=== PATIENT | female | born 1955 | race Caucasian/White ===

== ENCOUNTER → 2016-11-25 | Outpatient (CLI) | payer BC ==
[2016-11-25 15:27] VITALS: BP 122/74; PULSE 62; TEMP 97.9; BMI 31.6
--- NOTE | 2016-12-18 20:22 | P.PN ---
Progress Note - Text DATE OF SERVICE: 11/25/2016 CHIEF COMPLAINT: Follow up gastric bypass. HISTORY OF PRESENT ILLNESS: Archana Jones is a 61-year-old female who is status post gastric bypass on January 26, 2016. She is over 9 months out. At her height of 5 feet 7-1/4 inches, her ideal body weight is 158 pounds. Her highest weight was 283 pounds. Today she comes in weighing 203 pounds. She has lost 80 pounds. She has achieved 64% excess weight loss. Body mass index is now reduced from 44.1 down to 31.7. Total BMI point reduction is 12.4. She reports no troubles with her balance. She has complete resolution of her osteoarthritis of her bilateral knees, including hips. No reports of dumping syndrome. She reports increased energy. She is averaging over 70 g of protein daily. Her other concerns include moderate excess skin along her abdominal apron. She also reports intermittent infections not well controlled with nystatin powder. Now she presents for further evaluation and management. PAST MEDICAL HISTORY: 1. Obstructive sleep apnea, moderate to severe. 2. Morbid obesity. 3. Gastroesophageal reflux disease. 4. Osteoarthritis of bilateral knees, moderate to severe. 5. Personal history of colon polyps. 6. Depression. 7. Panniculitis. PAST SURGICAL HISTORY: 1. Upper endoscopy. 2. Lower endoscopy. 3. Laparoscopic cholecystectomy. 4. Gastric bypass. MEDICATIONS: 1. Biotin. 2. Vitamin A. 3. Thiamine. 4. Nystatin powder. 5. Multivitamin. 6. Claritin. 7. Fluoxetine. 8. Vitamin D. 9. Calcium. 10. Dulcolax as needed. ALLERGIES: 1. SULFA. 2. CODEINE. 3. BETADINE. SOCIAL HISTORY: No active tobacco use; however, she is a former tobacco user. She also reports alcohol abuse. FAMILY HISTORY: Pertinent for pancreatic cancer as well as throat cancer and stomach cancer. No reports of DVT within her family. No reports of food allergies. Pertinent history of morbid obesity. REVIEW OF SYSTEMS: CONSTITUTIONAL: [place] body weight of 158 pounds. She has lost at least 80 pounds in a little over 9 months. Percent excess weight loss 64%. She is over 45 pounds overweight. MUSCULOSKELETAL: Moderate improvement of diffuse joint pain of the bilateral hips and knees, including lower back. GASTROINTESTINAL: Resolved gastroesophageal reflux disease. RESPIRATORY: Resolved obstructive sleep apnea. HEMATOLOGIC: No personal history of coagulopathy or easy bruising. HEENT: Denies any trouble with vision or hearing. She wears glasses. ENDOCRINE: No reports of diabetes or hypothyroidism. NEURO: No reports strokes or seizure disorders. PSYCH: No reports of suicidal ideation. Now she has depression. RESPIRATORY: Denies pneumonia. Denies any troubles with breathing or dyspnea on exertion. CARDIOVASCULAR: Denies any chest pain, palpitations, or recent heart attacks. PHYSICAL EXAM: VITAL SIGNS: 97.9, 62, 122/74, 14, 5 feet 7-1/4 inches, 203 pounds. Body mass index of 31.7. ABDOMEN: Soft, nontender, without incarcerated incisional hernias. Pannus extends over pubis by at least 4.5 to 5 cm with mild hyperemia consistent with panniculitis. GENERAL: Well-developed female in distress. MUSCULOSKELETAL: No clubbing, cyanosis. HEENT: No sclerae icterus. Extraocular movements grossly intact. NECK: Supple without lymphadenopathy. No JV distention. CHEST: Non-labored respirations and equal bilateral excursions. CARDIOVASCULAR: Regular rate and rhythm. Palpable 2+ radial pulses. NEUROLOGIC: No focal or lateralizing signs. PSYCH: Appropriate affect. Alert and oriented to person, place and time. LABS: Previous labs reviewed with hemoglobin normal at 12.7. BUN is elevated at 21. Percent iron saturation was low at 18.6. ALT and AST were elevated at 650 and 40, respectively. ASSESSMENT: 1. Morbid obesity due to excess caloric intake. 2. Body mass index reduced from 44.1 down to 31.7. 3. Moderate obstructive sleep apnea. 4. Osteoarthritis of the bilateral knees, improved. 5. Osteoarthritis of the bilateral feet, improved. 6. History of gastrointestinal reflux disease with esophagitis. 7. Diaphragmatic hiatal hernia. 8. Family history of gastrointestinal malignancies, including the throat, stomach and pancreatic cancer. 9. Family history of morbid obesity. 10. Hypertensive heart disease without cardiomyopathy. 11. Depression without recent psychosis. 12. Vitamin D deficiency. 13. Former tobacco use. 14. Status post Marifer-en-Y gastric bypass. 15. Panniculitis. 16. Secondary hyperparathyroidism. 17. Thiamine deficiency. 18. Gastroesophageal reflux disease, resolved. 19. Obstructive sleep apnea, resolved. PLAN: 1. Additional prescription for nystatin powder was written on her behalf. 2. I did discuss the treatment for panniculectomy, which includes postoperative recovery. 3. Risk of flap failure, bleeding, infection, chronic pain, postoperative seromas, need for further surgery were reviewed in detail. She demonstrated understanding. 4. I do recommend at minimum for her to get to her ideal goal weight, which at this time she is still wants at least an extra 20+ pounds weight loss. 5. She is short of 20 pounds shy of 100-pound weight loss goal, which we will continue to evaluate. 6. I also recommend completion of a bariatric metabolic panel.
== END | disposition home or self-care (01) ==
LOC: BARWHC3 14:28
PROVIDERS: ATTEND Surgery Plastic and Reconstructive Surgery
DX: Z48.815 Encounter for surgical aftercare following surgery on the digestive system (principal); Z71.3 Dietary counseling and surveillance; E66.01 Morbid (severe) obesity due to excess calories; Z68.31 Body mass index [BMI] 31.0-31.9, adult; M19.072 Primary osteoarthritis, left ankle and foot; M19.071 Primary osteoarthritis, right ankle and foot; Z87.898 Personal history of other specified conditions; K44.9 Diaphragmatic hernia without obstruction or gangrene; Z80.0 Family history of malignant neoplasm of digestive organs; Z80.8 Family history of malignant neoplasm of other organs or systems; Z84.89 Family history of other specified conditions; I11.9 Hypertensive heart disease without heart failure; F32.9 Major depressive disorder, single episode, unspecified; E55.9 Vitamin D deficiency, unspecified; Z72.0 Tobacco use; Z98.84 Bariatric surgery status; M79.3 Panniculitis, unspecified; N25.81 Secondary hyperparathyroidism of renal origin; E51.9 Thiamine deficiency, unspecified; Z79.899 Other long term (current) drug therapy; Z88.5 Allergy status to narcotic agent; Z88.2 Allergy status to sulfonamides; Z88.8 Allergy status to other drugs, medicaments and biological substances; F10.10 Alcohol abuse, uncomplicated
CPT/HCPCS: 97803; 99211

== ENCOUNTER → 2017-03-23 | Outpatient (CLI) | payer BC ==
--- NOTE | 2017-03-24 06:11 | PN ---
This is a very pleasant 61-year-old female patient who was diagnosed having severe JENNY with AHI of 44 and she was on CPAP therapy at a pressure of 12 cm of water. Note that the patient has undergone gastric bypass surgery and she lost a total of 104 pounds. Back in September of 2015, she used to weight 285 and currently she is 181. With this significant weight loss, the patient did not have to use her CPAP. In fact, she felt worse while on the CPAP therapy and she quit using the machine around 4 months ago. Her weight has plateaued down to 180. She is feeling great. She is not snoring. She is waking up alert and awake during the day off the CPAP treatment. No fatigue. No tiredness. No sleepiness. She is averaging around 6 to 7 hours of sleep every night without any major difficulties. No active arthritis. No heartburn. BP is 120/72, pulse 65, respirations 16, weight 181, height 5 feet 7 inches, temperature 98.0, saturation 99% on room air. GENERAL APPEARANCE: Calm, comfortable. HEENT: Negative for JVD. There is no goiter or neck masses. LUNGS: Clear to auscultation. HEART: Sounds regular rate and rhythm. Normal S1, S2. ABDOMEN: Soft, nontender. No organomegaly. EXTREMITIES: No edema, no cyanosis or clubbing. IMPRESSION: 1. Severe obstructive sleep apnea, probably recovered after a gastric bypass surgery. Baseline AHI was 44, currently asymptomatic, not using her CPAP. 2. Bariatric surgery/gastric bypass. 3. Gastroesophageal reflux disease. PLAN: 1. Will stop CPAP therapy for now. 2. Will do a home sleep study to re-evaluate the presence and severity of obstructive sleep apnea. The patient is completely asymptomatic. I am inclined to discontinue the treatment especially if the home sleep study does not show any significant sleep breathing disorder. ALETAD
== END | disposition home or self-care (01) ==
LOC: SLEEP 16:46
PROVIDERS: ATTEND Internal Medicine Critical Care Medicine
DX: G47.33 Obstructive sleep apnea (adult) (pediatric) (principal); K21.9 Gastro-esophageal reflux disease without esophagitis; Z98.84 Bariatric surgery status

== ENCOUNTER 2017-04-24 21:58 | Emergency (ER) | payer BC ==
[2017-04-24 22:11] VITALS: RESP 18
--- NOTE | 2017-04-24 23:07 | ED ---
General Adult HPI - General Chief complaint: Head Injury Stated complaint: Fall/Head Lac Time Seen by Provider: 04/24/17 22:14 Source: patient, family, RN notes reviewed Mode of arrival: ambulatory Limitations: no limitations - History of Present Illness Initial comments: 61-year-old female presents emergency Department chief complaint of fall. Patient states that she was running close down the stairs and she tripped and fell and hit her head. Patient states she did not pass out she does not have a headache she denies neck pain she denies any nausea vomiting. Patient states she did drink alcohol tonight. Patient states that's and her tetanus. A repeat concerned due to the bleeding so they thought that they should be evaluated.Patient denies any recent fever, chills, shortness of breath, chest pain, back pain, abdominal pain, nausea vomiting, numbness or tingling, dysuria or hematuria, constipation or diarrhea, headaches or visual changes, or any other current symptoms. - Related Data Home Medications Medication Instructions Recorded Confirmed FLUoxetine HCL [Sarafem] 20 mg PO QAM 04/03/15 04/24/17 Multivitamins, Thera [Multivitamin 1 tab PO DAILY 04/25/15 04/24/17 (formulary)] Cholecalciferol [Vitamin D3] 4,000 unit PO DAILY 10/02/15 04/24/17 Calcium Carbonate [Calcium] 600 mg PO DAILY 01/17/16 04/24/17 Loratadine-Pseudoeph 5-120 mg 1 each PO DAILY 02/05/16 04/24/17 [Claritin-D 12 HR] Bisacodyl [Dulcolax] 5 mg PO DIRECTED PRN 02/26/16 04/24/17 Saliva Stimulant Agents Comb.3 1 ml PO DAILY 11/25/16 04/24/17 [Biotene Moisturizing Mouth] Previous Rx's Medication Instructions Recorded Nystatin 100,000 Unit/gm Powd 1 applic TOPICAL BID #60 powder 04/29/16 [Mycostatin Powder] Calcium Carbonate [Calcium] 600 mg PO BID #60 tablet 05/22/16 Thiamine HCl [Vitamin B-1] 100 mg PO DAILY #30 tablet 05/22/16 Vitamin A 8,000 unit PO DAILY #30 capsule 05/22/16 Nystatin 100,000 Unit/gm Powd 1 applic TOPICAL BID #60 powder 11/25/16 [Mycostatin Powder] Allergies Allergy/AdvReac Type Severity Reaction Status Date / Time Sulfa (Sulfonamide Allergy HIVES Verified 04/24/17 22:11 Antibiotics) acetaminophen [From [place]] AdvReac Nausea & Verified 04/24/17 22:11 Vomiting codeine AdvReac Nausea & Verified 04/24/17 22:11 Vomiting hydrocodone bitartrate AdvReac Nausea & Verified 04/24/17 22:11 [From [place]] Vomiting povidone-iodine AdvReac Rash/Hives Verified 04/24/17 22:11 [From Betadine] soap [From Betadine] AdvReac Rash/Hives Verified 04/24/17 22:11 Review of Systems ROS Statement: Those systems with pertinent positive or pertinent negative responses have been documented in the HPI. ROS Other: All systems not noted in ROS Statement are negative. Past Medical History Past Medical History: GERD/Reflux, Osteoarthritis (OA), Sleep Apnea/CPAP/BIPAP Additional Past Medical History / Comment(s): Arthritis Knees. LMP 2008 EST. HIATAL HERNIA. USING CPAP. FATTY LIVER. ENDOCRINE DISORDER, PER DR PRIEST'S [facility] CLEARANCE, NO RX FOR THESE. History of Any Multi-Drug Resistant Organisms: None Reported Past Surgical History: Bariatric Surgery, Cholecystectomy Additional Past Surgical History / Comment(s): COLPOSCOPY. EGD/Colonoscopy/D& C. gastric bypass 2015 Past Anesthesia/Blood Transfusion Reactions: No Reported Reaction Past Psychological History: No Psychological Hx Reported Smoking Status: Never smoker - Past Family History Mother Family Medical History: Cancer Additional Family Medical History / Comment(s): pancreatic cancer Father Family Medical History: Congestive Heart Failure (CHF), Myocardial Infarction ( [place]) General Exam Limitations: no limitations General appearance: alert, in no apparent distress Head exam: Present: atraumatic, normocephalic. Absent: normal inspection ( Patient does appear to 4 cm scalp laceration to the frontal area.) ENT exam: Present: normal exam, mucous membranes moist Neck exam: Present: normal inspection. Absent: tenderness, meningismus, lymphadenopathy Respiratory exam: Present: normal lung sounds bilaterally. Absent: respiratory distress, wheezes, rales, rhonchi, stridor Cardiovascular Exam: Present: regular rate, normal rhythm, normal heart sounds. Absent: systolic murmur, diastolic murmur, rubs, gallop, clicks Extremities exam: Present: normal inspection, full ROM, normal capillary refill. Absent: tenderness, pedal edema, joint swelling, calf tenderness Back exam: Present: normal inspection Neurological exam: Present: alert, oriented X3, CN II-XII intact, normal gait, reflexes normal. Absent: motor sensory deficit Psychiatric exam: Present: normal affect, normal mood Skin exam: Present: warm, dry, intact, normal color. Absent: rash Course Vital Signs 04/24/17 22:07 Temperature 98.6 F Pulse Rate 66 Respiratory 18 Rate Blood Pressure 136/77 O2 Sat by Pulse 99 Oximetry Procedures - Procedures Initial comment: consent obtained. The skin was anesthetized with 1% lidocaine without epinephrine. The laceration was then cleansed with Betadine and irrigated with normal saline. The wound was inspected, and there was no evidence of injury to deep structures. No foreign body was noted in the wound. A total of 4 skin shyanne were placed with good approximation to a 4 cm scalp laceration. Medical Decision Making - Medical Decision Making 61-year-old female presents for follow-up head injury and laceration. Patient with staple care. We discussed CAT scan results. We discussed care follow-up return parameters. We discussed all the patient's and family's questions. They stated they understood and the on agreement the plan. All questions have been answered. They will be discharged home. - Radiology Data Radiology results: report reviewed, image reviewed Disposition Clinical Impression: Fall, Scalp laceration, Minor head injury without loss of consciousness Disposition: HOME SELF-CARE Condition: Stable Instructions: Head Injury (ED), Staple Care (ED) Additional Instructions: Please use medication as discussed. Please follow up with family doctor if symptoms have not improved over the next two days. Please return to the emergency room if your symptoms increase or worsen or for any other concerns. Referrals: Mike Rodney MD [Primary Care Provider] - 1-2 days Time of Disposition: 23:25
--- NOTE | 2017-04-24 23:23 | CT ---
EXAM: CT Head Without Intravenous Contrast CLINICAL HISTORY: Reason: Pain TECHNIQUE: Axial computed tomography images of the head/brain without intravenous contrast. CTDI is 0.15, 59.43, 18.34, 0.15, 59.43 mGy and DLP is 2635 mGy-cm. This CT exam was performed using one or more of the following dose reduction techniques: automated exposure control, adjustment of the mA and/or kV according to patient size, and/or use of iterative reconstruction technique. COMPARISON: No relevant prior studies available. FINDINGS: Brain: No evidence of acute infarct, hemorrhage, mass or edema. No significant white matter disease. Ventricles: Unremarkable. No ventriculomegaly. Bones/joints: Unremarkable. No acute fracture. Soft tissues: Unremarkable. Sinuses: Unremarkable as visualized. No acute sinusitis. Mastoid air cells: Unremarkable as visualized. No mastoid effusion. IMPRESSION: No acute findings. EXAM: CT Cervical Spine Without Intravenous Contrast CLINICAL HISTORY: Reason: Pain TECHNIQUE: Axial computed tomography images of the cervical spine without intravenous contrast. CTDI is 0.15, 59.43, 18.34, 0.15, 59.43 mGy and DLP is 2635 mGy-cm. This CT exam was performed using one or more of the following dose reduction techniques: automated exposure control, adjustment of the mA and/or kV according to patient size, and/or use of iterative reconstruction technique. COMPARISON: No relevant prior studies available. FINDINGS: Vertebrae: No acute fracture or traumatic malalignment. Discs/spinal canal/neural foramina: Multilevel degenerative changes. No spinal canal stenosis. Soft tissues: Unremarkable. Lung apices: Unremarkable as visualized. IMPRESSION: No acute findings.
[2017-04-24 23:40] VITALS: BP 120/68; PULSE 62; TEMP 97.8
== END 2017-04-24 23:34 | disposition home or self-care (01) ==
LOC: EC 21:58
DX: S01.01XA Laceration without foreign body of scalp, initial encounter (principal); M17.10 Unilateral primary osteoarthritis, unspecified knee; Z88.2 Allergy status to sulfonamides; Z88.5 Allergy status to narcotic agent; Z91.048 Other nonmedicinal substance allergy status; Z79.899 Other long term (current) drug therapy; W10.9XXA Fall (on) (from) unspecified stairs and steps, initial encounter; Y93.02 Activity, running; Y92.009 Unspecified place in unspecified non-institutional (private) residence as the place of occurrence of the external cause
CPT/HCPCS: 12002; 70450; 72125; 99283

== ENCOUNTER 2018-10-08 12:53 | Emergency (ER) | payer BC ==
[2018-10-08 13:16] VITALS: TEMP 98.1
[2018-10-08] MEDS ORDERED: HYDROmorphone 1 MG/ML 1 ML SYRINGE IVP STA (13:39)
--- NOTE | 2018-10-08 13:44 | ED ---
Upper Extremity HPI - General Chief Complaint: Extremity Injury, Upper Stated Complaint: fall, shoulder injury Time Seen by Provider: 10/08/18 13:21 Source: patient, EMS, RN notes reviewed Mode of arrival: EMS Limitations: no limitations - History of Present Illness Initial Comments: 63-year-old female presents emergency department via EMS chief complaints of a fall. Patient states she slipped on some ice onto her right shoulder. Patient has severe right shoulder pain. Patient states that she was given fentanyl by EMS which helped for short period of time. Patient denies any head injury no loss conscious. Patient states she did lay and ice that she was unable to get up. Patient denies any lower extremity injury. Denies any chest pain or shortness of breath. - Related Data Home Medications Medication Instructions Recorded Confirmed FLUoxetine HCL [Sarafem] 20 mg PO QAM 04/03/15 04/24/17 Multivitamins, Thera [Multivitamin 1 tab PO DAILY 04/25/15 04/24/17 (formulary)] Cholecalciferol [Vitamin D3] 4,000 unit PO DAILY 10/02/15 04/24/17 Calcium Carbonate [Calcium] 600 mg PO DAILY 01/17/16 04/24/17 Loratadine-Pseudoeph 5-120 mg 1 each PO DAILY 02/05/16 04/24/17 [Claritin-D 12 HR] Bisacodyl [Dulcolax] 5 mg PO DIRECTED PRN 02/26/16 04/24/17 Saliva Stimulant Agents Comb.3 1 ml PO DAILY 11/25/16 04/24/17 [Biotene Moisturizing Mouth] Previous Rx's Medication Instructions Recorded Nystatin 100,000 Unit/gm Powd 1 applic TOPICAL BID #60 powder 04/29/16 [Mycostatin Powder] Calcium Carbonate [Calcium] 600 mg PO BID #60 tablet 05/22/16 Thiamine HCl [Vitamin B-1] 100 mg PO DAILY #30 tablet 05/22/16 Vitamin A 8,000 unit PO DAILY #30 capsule 05/22/16 Nystatin 100,000 Unit/gm Powd 1 applic TOPICAL BID #60 powder 11/25/16 [Mycostatin Powder] traMADol HCl [Ultram] 50 mg PO Q6H PRN #12 tab 10/08/18 Allergies Allergy/AdvReac Type Severity Reaction Status Date / Time Sulfa (Sulfonamide Allergy HIVES Verified 10/08/18 13:08 Antibiotics) acetaminophen [From [place]] AdvReac Nausea & Verified 10/08/18 13:08 Vomiting codeine AdvReac Nausea & Verified 10/08/18 13:08 Vomiting hydrocodone bitartrate AdvReac Nausea & Verified 10/08/18 13:08 [From [place]] Vomiting povidone-iodine AdvReac Rash/Hives Verified 10/08/18 13:08 [From Betadine] soap [From Betadine] AdvReac Rash/Hives Verified 10/08/18 13:08 Review of Systems ROS Statement: Those systems with pertinent positive or pertinent negative responses have been documented in the HPI. ROS Other: All systems not noted in ROS Statement are negative. Past Medical History Past Medical History: GERD/Reflux, Osteoarthritis (OA), Sleep Apnea/CPAP/BIPAP Additional Past Medical History / Comment(s): Arthritis Knees. LMP 2008 EST. HIATAL HERNIA. USING CPAP. FATTY LIVER. ENDOCRINE DISORDER, PER DR PRIEST'S MEDICAL CLEARANCE, NO RX FOR THESE. History of Any Multi-Drug Resistant Organisms: None Reported Past Surgical History: Bariatric Surgery, Cholecystectomy Additional Past Surgical History / Comment(s): COLPOSCOPY. EGD/Colonoscopy/D& C. gastric bypass 2015 Past Anesthesia/Blood Transfusion Reactions: No Reported Reaction Past Psychological History: No Psychological Hx Reported Smoking Status: Never smoker Past Alcohol Use History: None Reported Past Drug Use History: None Reported - Past Family History Mother Family Medical History: Cancer Additional Family Medical History / Comment(s): pancreatic cancer Father Family Medical History: Congestive Heart Failure (CHF), Myocardial Infarction ( [place]) General Exam General appearance: alert, in no apparent distress Head exam: Present: atraumatic, normocephalic, normal inspection Neck exam: Present: normal inspection, full ROM. Absent: tenderness, meningismus, lymphadenopathy Respiratory exam: Present: normal lung sounds bilaterally. Absent: respiratory distress, wheezes, rales, rhonchi, stridor, chest wall tenderness Cardiovascular Exam: Present: regular rate, normal rhythm, normal heart sounds. Absent: systolic murmur, diastolic murmur, rubs, gallop, clicks Extremities exam: Present: other (Right shoulder there is severe tenderness with palpation, mild swelling, arm is neurovascularly intact, no tenderness of the right elbow or right wrist. Lower extremity within normal limits) Neurological exam: Present: alert, oriented X3, CN II-XII intact, reflexes normal. Absent: motor sensory deficit Skin exam: Present: warm, dry, intact, normal color. Absent: rash Course Vital Signs 10/08/18 13:08 Temperature 98.1 F Pulse Rate 72 Respiratory 18 Rate Blood Pressure 135/79 O2 Sat by Pulse 98 Oximetry Medical Decision Making - Medical Decision Making 63-year-old female presented for slip on ice. Patient has a right humeral neck fracture. Patient was placed in a sling will be discharged with pain medication. Patient has multiple ALLERGIES to oral medications. Patient be tried on tramadol. Patient will follow-up with orthopedics. Return parameters were discussed. Disposition Clinical Impression: Right humeral fracture, Fall Disposition: HOME SELF-CARE Condition: Stable Instructions (If sedation given, give patient instructions): Arm Fracture in Adults (ED) Additional Instructions: Please return to the Emergency Department if symptoms worsen or any other concerns. Prescriptions: traMADol HCl [Ultram] 50 mg PO Q6H PRN #12 tab PRN Reason: Pain Is patient prescribed a controlled substance at d/c from ED?: Yes When asked, does pt state using other controlled substances?: No If prescribed controlled substance>3 days was MAPS reviewed?: Prescribed <3 Days If opioid is for acute pain is fill amount 7 days or less?: Yes If Rx opioid, was Start Talking consent form obtained?: Yes Referrals: Mike Rodney MD [Primary Care Provider] - 1-2 days Time of Disposition: 15:01
--- NOTE | 2018-10-08 14:07 | XR ---
Right shoulder 2 views. History pain. Fall. Comparison none. FINDINGS: There is oblique fracture of the humeral neck. There is separation of the fragments up to 1 cm. There is no dislocation. Scapula appears intact. IMPRESSION: Acute humeral neck fracture.
[2018-10-08 15:47] VITALS: BP 129/78; PULSE 82; RESP 16
== END 2018-10-08 15:45 | disposition home or self-care (01) ==
LOC: EC 12:53
DX: S42.211A Unspecified displaced fracture of surgical neck of right humerus, initial encounter for closed fracture (principal); G47.30 Sleep apnea, unspecified; Z79.899 Other long term (current) drug therapy; Z88.2 Allergy status to sulfonamides; Z88.5 Allergy status to narcotic agent; Z88.6 Allergy status to analgesic agent; Z88.8 Allergy status to other drugs, medicaments and biological substances; Z98.84 Bariatric surgery status; Z99.89 Dependence on other enabling machines and devices; W00.0XXA Fall on same level due to ice and snow, initial encounter
CPT/HCPCS: 99284; 96374; 73030; J1170

== ENCOUNTER → 2021-05-28 | Outpatient (CLI) | payer MEDICARE ==
--- NOTE | 2021-05-28 10:16 | CT ---
EXAMINATION TYPE: CT abdomen pelvis w con DATE OF EXAM: 05/28/2021 HISTORY: diverticulitis CT DLP: 1376mGycm Automated Exposure Control for Dose Reduction was Utilized. CONTRAST: CT scan of the abdomen and pelvis is performed with IV Contrast, patient injected with 100 mL of Isov ue 300. COMPARISON: None. FINDINGS: Exam is suboptimal due to overlying ring down artifact. LUNG BASES: No significant abnormality is appreciated. LIVER/GB: Cholecystectomy clips. PANCREAS: No significant abnormality is seen. SPLEEN: No significant abnormality is seen. ADRENALS: No significant abnormality is seen. KIDNEYS: Marked cortical thinning and diminished size to left kidney consistent with end-stage atroph y. Satisfactory uptake and excretion right kidney with some small simple appearing parapelvic cysts a t the mid to lower pole level. No hydronephrosis. BOWEL: The oral contrast reaches level of the terminal ileum. Stomach poorly distended as contrast olsen s passed from stomach at time of imaging. Surgical changes at the diaphragmatic hiatus are identified . There is debris filled mildly dilated visualized distal esophagus. Portion of stomach is bypassed. Contrast seen in nondistended small bowel loops throughout the abdomen. There is wandering cecal into the right upper to mid abdomen. Appendix within normal limits from the cecum. Terminal ileum appears within normal limits. Immediately past cecum there is moderate concentric wall thickening extending through the hepatic flexure with moderate to severe wall thickening diffusely along entire transverse colon and moderate wall thickening extending into the proximal two thirds of the left colon. There i s significant diverticular disease from the hepatic flexure through entire transverse colon and to en tire left colon and visualized portion of the redundant sigmoid colon. Sigmoid colon is fecal filled with loss of normal colonic haustra. Moderate gas-filled prominence of the rectum. No free air. No we ll-formed fluid collection or abscess. No significant surrounding fat stranding. UTERUS/ADNEXA: Anteverted uterus projects to right of midline. No adnexal masses noted. LYMPH NODES: No greater than 1cm abdominal or pelvic lymph nodes are appreciated. OSSEOUS STRUCTURES: [id number] disc space narrowing affecting disc phenomenon at lumbosacral junction mild to moderate disc space narrowing T11-T12 and T12-L1 levels with vacuum disc phenomenon. OTHER: No significant additional abnormality is seen. IMPRESSION: Prominent diffuse colonic diverticulosis from hepatic flexure through distal sigmoid colo n. There is moderate to severe long segment colitis from the proximal to mid right colon through the distal portion of the left colon. Differential includes infectious and/or inflammatory etiologies. Lo ss of colonic haustra with moderate colonic fecal stasis in the sigmoid colon suggests underlying chr onic colitis or inflammation.
== END | disposition home or self-care (01) ==
LOC: RADCTMAIN 07:07
PROVIDERS: ATTEND Surgery Plastic and Reconstructive Surgery
DX: K52.9 Noninfective gastroenteritis and colitis, unspecified (principal); K57.30 Diverticulosis of large intestine without perforation or abscess without bleeding
CPT/HCPCS: 74177; Q9967

== ENCOUNTER 2021-07-28 07:42 | Day surgery (SDC) | payer MEDICARE ==
[2021-07-24 15:12] VITALS: BMI 26.9
--- NOTE | 2021-07-28 07:14 | P.GSHP ---
History of Present Illness H&P Date: 07/28/21 CHIEF COMPLAINT: Colon screen HISTORY OF PRESENT ILLNESS: The patient is a 66-year-old female who presents for colon screen. Lower endoscopy was offered for further evaluation and management. PAST MEDICAL HISTORY: Please see list. PAST SURGICAL HISTORY: Please see list. MEDICATIONS: Please see list. ALLERGIES: Please see list. SOCIAL HISTORY: No illicit drug use FAMILY HISTORY: No reports of Crohn disease or ulcerative colitis. REVIEW OF ORGAN SYSTEMS: CONSTITUTIONAL: No reports of fevers or chills. PHYSICAL EXAM: VITAL SIGNS: Stable GENERAL: Well-developed pleasant in no acute distress. HEENT: No scleral icterus. Extraocular movements grossly intact. Moist buccal mucosa. NECK: Supple without lymphadenopathy. CHEST: Unlabored respirations. Equal bilateral excursions. CARDIOVASCULAR: Regular rate and rhythm. Distal 2+ pulses. ABDOMEN: Soft, nontender, nondistended. MUSCULOSKELETAL: No clubbing, cyanosis, or edema. ASSESSMENT: 1. Colon screen. PLAN: 1. Recommend proceeding with a lower endoscopy Past Medical History Past Medical History: GERD/Reflux, Osteoarthritis (OA), Sleep Apnea/CPAP/BIPAP Additional Past Medical History / Comment(s): hx HIATAL HERNIA. diverticulitis, History of Any Multi-Drug Resistant Organisms: None Reported Past Surgical History: Bariatric Surgery, Cholecystectomy Additional Past Surgical History / Comment(s): COLPOSCOPY. EGD/Colonoscopy, D&C. gastric bypass , repair of hiatal hernia Past Anesthesia/Blood Transfusion Reactions: No Reported Reaction Smoking Status: Former smoker - Past Family History Mother Family Medical History: Cancer Additional Family Medical History / Comment(s): pancreatic cancer Father Family Medical History: Congestive Heart Failure (CHF), Myocardial Infarction ([place]) Medications and Allergies Home Medications Medication Instructions Recorded Confirmed Type Multivitamins, Thera [Multivitamin 1 tab PO DAILY 04/25/15 07/24/21 History (formulary)] Cholecalciferol [Vitamin D3 (25 4,000 unit PO DAILY 10/02/15 07/24/21 History Mcg = 1000 Iu)] Loratadine-Pseudoeph 5-120 mg 1 each PO DAILY PRN 02/05/16 07/24/21 History [Claritin-D 12 HR] Calcium Carbonate [Calcium] 600 mg PO BID #60 tablet 05/22/16 07/24/21 Rx Biotin 5 mg PO DAILY 05/15/21 07/24/21 History Cyanocobalamin [Vitamin B-12] 500 mcg PO DAILY 05/15/21 07/24/21 History FLUoxetine HCL [Sarafem] 20 mg PO QAM 07/24/21 07/24/21 History Allergies Allergy/AdvReac Type Severity Reaction Status Date / Time Sulfa (Sulfonamide Allergy HIVES Verified 07/24/21 15:04 Antibiotics) acetaminophen [From [place]] AdvReac Nausea & Verified 07/24/21 15:04 Vomiting codeine AdvReac Nausea & Verified 07/24/21 15:04 Vomiting hydrocodone bitartrate AdvReac Nausea & Verified 07/24/21 15:04 [From [place]] Vomiting povidone-iodine AdvReac Rash/Hives Verified 07/24/21 15:04 [From Betadine] soap [From Betadine] AdvReac Rash/Hives Verified 07/24/21 15:04
--- NOTE | 2021-07-28 07:23 | P.PCN ---
Date of Procedure: 07/28/21 Description of Procedure: PREOPERATIVE DIAGNOSIS: Gastroesophageal reflux disease. Morbid obesity. POSTOPERATIVE DIAGNOSIS: Morbid obesity. Gastritis. Gastroesophageal reflux disease. OPERATION: Esophagogastroduodenoscopy with biopsies along antrum. SURGEON: Yu Marrufo MD ANESTHESIA: MAC. INDICATIONS: The patient is a 66-year-old female who presents with a history of reflux disease. Benefits and risks of the procedure were described. Informed consent was obtained. DESCRIPTION: The patient was brought into the endoscopy suite and laid in the left lateral decubitus position. An Olympus gastroscope was passed along the posterior oropharynx down to the distal esophagus where the squamocolumnar junction was encountered at 40 cm from the incisors. The stomach was entered and no bile reflux was found. Additional findings are listed below. Biopsies with cold forceps were obtained of the antrum. The first through third portion of the duodenum was examined and unremarkable. Retroflexion of the scope confirmed Hill grade 2 lower esophageal valve. The squamocolumnar junction demonstrated LA grade B erosive esophagitis. The stomach was desufflated. The patient tolerated the procedure well. FINDINGS: Squamocolumnar junction 40 cm from the incisors. Diaphragmatic hiatus at 40 cm. Hill grade 2 lower esophageal valve. LA grade B erosive esophagitis. No active duodenitis. Chronic gastritis RECOMMENDATIONS: Upper endoscopy as needed. Plan - Discharge Summary New Discharge Prescriptions: New Omeprazole [PriLOSEC] 40 mg PO DAILY #14 cap Continue Multivitamins, Thera [Multivitamin (formulary)] 1 tab PO DAILY Cholecalciferol [Vitamin D3 (25 Mcg = 1000 Iu)] 4,000 unit PO DAILY Loratadine-Pseudoeph 5-120 mg [Claritin-D 12 Hour] 1 each PO DAILY PRN PRN Reason: allergies Calcium Carbonate [Calcium] 600 mg PO BID #60 tablet Cyanocobalamin [Vitamin B-12] 500 mcg PO DAILY FLUoxetine HCL [Sarafem] 20 mg PO QAM Biotin 5 mg PO DAILY Discharge Medication List Multivitamins, Thera [Multivitamin (formulary)] 1 tab PO DAILY 04/25/15 [History] Cholecalciferol [Vitamin D3 (25 Mcg = 1000 Iu)] 4,000 unit PO DAILY 10/02/15 [History] Loratadine-Pseudoeph 5-120 mg [Claritin-D 12 Hour] 1 each PO DAILY PRN 02/05/16 [History] Calcium Carbonate [Calcium] 600 mg PO BID #60 tablet 05/22/16 [Rx] Biotin 5 mg PO DAILY 05/15/21 [History] Cyanocobalamin [Vitamin B-12] 500 mcg PO DAILY 05/15/21 [History] FLUoxetine HCL [Sarafem] 20 mg PO QAM 07/24/21 [History] Omeprazole [PriLOSEC] 40 mg PO DAILY #14 cap 07/28/21 [Rx] Follow up App[facility]ment(s[facility]Ref[facility] [place] [facility] [place] [facility] Patient Instructions/Handouts: Gastritis (DC) Discharge Disposition: HOME SELF-CARE
[~2021-07-28 07:42] MED LIST: LACTATED RINGERS 1,000 ML IV SCH
[2021-07-28 08:33] VITALS: TEMP 97.9
[2021-07-28] MEDS ORDERED: PROPOFOL 10 MG/ML 20 ML VIAL IV ONE (08:53)
[2021-07-28 09:25] VITALS: RESP 16
[2021-07-28 09:43] VITALS: BP 156/79; PULSE 69
--- NOTE | 2021-07-31 02:52 | P.PCN ---
Date of Procedure: 07/28/21 Description of Procedure: PREOPERATIVE DIAGNOSIS: Personal history of colon polyps Family history malignant colon polyps Colonoscopy screening POSTOPERATIVE DIAGNOSIS: Personal history of colon polyps Family history malignant colon polyps Colonoscopy screening Tubular adenoma hepatic flexure Sigmoid diverticulosis, severe Internal hemorrhoids, grade 2 OPERATION: Colonoscopy to the ileocecal valve and appendiceal orifice, cecum Colonoscopy with hot snare polypectomy SURGEON: Yu Marrufo MD. ANESTHESIA: MAC. INDICATIONS: The patient is an 66-year-old female who presents family history of malignant colon polyps and personal history of colon polyps. Last colonoscopy 5 years. Benefits and risks were described and informed consent was obtained. DESCRIPTION OF PROCEDURE: The patient had undergone Sutab prep. The patient had been brought into the operating room and laid in the left lateral decubitus position. After adequate intravenous sedation, the rectum was examined with 2% lidocaine jelly. The prostate was unremarkable. External hemorrhoids were encountered. The rectal tone was within normal limits. No lesions were palpated in the rectal vault. An Olympus colonoscope was advanced until the cecum, ileocecal valve and appendiceal orifice were clearly viewed. The prep was good. Sigmoid diverticulosis was encountered. Colonic polyps were found and removed. No evidence of focal colitis was found. Retroflexion of the scope demonstrated grade 2 internal hemorrhoids without active bleeding or inflammation. The colon was desufflated. The patient had tolerated the procedure well. Withdrawal time was over 6 minutes. FINDINGS: Aronchick preparation quality scale 2 (1-5) Internal hemorrhoids, grade 2 External hemorrhoids, grade 2. No arteriovenous malformations. Sigmoid diverticulosis, severe Removal of 1 polyp: - Snare polypectomy at mid hepatic flexure, 8 mm polyp, tubulovillous adenoma. No focal colitis. RECOMMENDATIONS: Repeat colonoscopy 3 years, 2023. Plan - Discharge Summary New Discharge Prescriptions: Continue Multivitamins, Thera [Multivitamin (formulary)] 1 tab PO DAILY Cholecalciferol [Vitamin D3 (25 Mcg = 1000 Iu)] 4,000 unit PO DAILY Loratadine-Pseudoeph 5-120 mg [Claritin-D 12 Hour] 1 each PO DAILY PRN PRN Reason: allergies Calcium Carbonate [Calcium] 600 mg PO BID #60 tablet Cyanocobalamin [Vitamin B-12] 500 mcg PO DAILY FLUoxetine HCL [Sarafem] 20 mg PO QAM Biotin 5 mg PO DAILY Discharge Medication List Multivitamins, Thera [Multivitamin (formulary)] 1 tab PO DAILY 04/25/15 [History] Cholecalciferol [Vitamin D3 (25 Mcg = 1000 Iu)] 4,000 unit PO DAILY 10/02/15 [History] Loratadine-Pseudoeph 5-120 mg [Claritin-D 12 Hour] 1 each PO DAILY PRN 02/05/16 [History] Calcium Carbonate [Calcium] 600 mg PO BID #60 tablet 05/22/16 [Rx] Biotin 5 mg PO DAILY 05/15/21 [History] Cyanocobalamin [Vitamin B-12] 500 mcg PO DAILY 05/15/21 [History] FLUoxetine HCL [Sarafem] 20 mg PO QAM 07/24/21 [History] Follow up App[facility]ment(s[facility] [facility] [place] [facility] - [facility]21 Patient Instructions/Handouts: *[facility] - (Anesthesia) Endoscopy Discharge Instructions, Colorectal Polyps (DC), Colonoscopy (DC) Discharge Disposition: HOME SELF-CARE
== END 2021-07-28 10:07 | disposition home or self-care (01) ==
LOC: ORWHC2ENDO 07:42
PROVIDERS: ATTEND Surgery Plastic and Reconstructive Surgery
DX: Z12.11 Encounter for screening for malignant neoplasm of colon (principal); Z86.010 Personal history of colon polyps; Z84.81 Family history of carrier of genetic disease; D12.3 Benign neoplasm of transverse colon; K64.8 Other hemorrhoids; K57.30 Diverticulosis of large intestine without perforation or abscess without bleeding
CPT/HCPCS: 45385; 88305; J2704

== ENCOUNTER → 2021-08-13 | Outpatient (CLI) | payer MEDICARE ==
--- NOTE | 2021-08-13 16:12 | P.BASOAP ---
Subjective Progress Note Date: 08/13/21 DATE OF SERVICE: 08/13/2021 CHIEF COMPLAINT: Follow up gastric bypass. HISTORY OF PRESENT ILLNESS: Archana Jones is a 65-year-old female who is status post gastric bypass on January 26, 2016. She is 5 years out. She had surgery in her mouth and is now taking ibuprofen. She has family history of pancreatic, stomach, throat, cancers for which she is afraid of having abdominal pain. She is not taking a gastric protectant with her pain medication. At her height of 5 feet 7-1/4 inches, her ideal body weight is 158 pounds. Her highest weight was 283 pounds, body mass index 44.1 Today she comes in 176 pounds from 177 pounds, 2 months ago. She has lost 1 pounds in 2 months. Lifetime weight loss is 107 pounds. She has achieved 86% lifetime excess weight loss. Body mass index is now reduced from 44.1 down to 27.4. PHYSICAL EXAM: VITAL SIGNS: 5 feet 7-1/4 inches, 177 pounds. Body mass index of 27.5 Vital Signs Temp 97.9 F 08/13/21 16:22 Pulse 76 08/13/21 16:22 Resp BP 167/90 08/13/21 16:22 Pulse Ox ABDOMEN: Soft, nontender. GENERAL: Well-developed female in distress. MUSCULOSKELETAL: No clubbing, cyanosis. HEENT: No sclerae icterus. Extraocular movements grossly intact. NECK: Supple without lymphadenopathy. No JV distention. CHEST: Non-labored respirations and equal bilateral excursions. CARDIOVASCULAR: Regular rate and rhythm. Palpable 2+ radial pulses. NEUROLOGIC: No focal or lateralizing signs. PSYCH: Appropriate affect. Alert and oriented to person, place and time. SKIN: Well perfused. Good skin turgor COLON FINDINGS: Aronchick preparation quality scale 2 (1-5) Internal hemorrhoids, grade 2 External hemorrhoids, grade 2. No arteriovenous malformations. Sigmoid diverticulosis, severe Removal of 1 polyp: - Snare polypectomy at mid hepatic flexure, 8 mm polyp, tubulovillous adenoma. No focal colitis. Final Pathologic Diagnosis COLON, HEPATIC FLEXURE, BIOPSY: Tubular adenoma. ASSESSMENT: 1. Morbid obesity due to excess caloric intake. 2. Body mass index reduced from 44.1 down to 27.4 3. Obstructive sleep apnea. 4. Osteoarthritis of the bilateral knees 5. Osteoarthritis of the bilateral feet 6. History of gastrointestinal reflux disease with esophagitis. 7. Diaphragmatic hiatal hernia. 8. Family history of gastrointestinal malignancies, including the throat, stomach and pancreatic cancer. 9. Family history of morbid obesity. 10. Hypertensive heart disease without cardiomyopathy. 11. Depression without recent psychosis. 12. Zinc deficiency 13. Former tobacco use. 14. Status post Marifer-en-Y gastric bypass. 15. Panniculitis. 16. Secondary hyperparathyroidism. 17. Thiamine deficiency. 18. Atypical chest pain 19. Diverticulitis PLAN: 1. She has been taking NSAIDs. Recommend Omeprazole Assessment/Plan Plan: Date: Initial Weight: 122.924 kg Initial BMI: Current Weight: Current BMI: Type of Surgery: Total Volume in Band: Previous Volume: Volume Removed: Volume Added: Band Size:
[2021-08-14 13:44] VITALS: BP 167/90; PULSE 76; TEMP 97.9; BMI 27.3
== END | disposition home or self-care (01) ==
LOC: BARWHC3 15:23
PROVIDERS: ATTEND Surgery Plastic and Reconstructive Surgery
DX: E66.01 Morbid (severe) obesity due to excess calories (principal); Z68.27 Body mass index [BMI] 27.0-27.9, adult; G47.33 Obstructive sleep apnea (adult) (pediatric); M17.0 Bilateral primary osteoarthritis of knee; K44.9 Diaphragmatic hernia without obstruction or gangrene; Z87.19 Personal history of other diseases of the digestive system; M19.071 Primary osteoarthritis, right ankle and foot; M19.072 Primary osteoarthritis, left ankle and foot; Z83.49 Family history of other endocrine, nutritional and metabolic diseases; Z80.0 Family history of malignant neoplasm of digestive organs; I11.9 Hypertensive heart disease without heart failure; F32.A Depression, unspecified; E60 Dietary zinc deficiency; M79.3 Panniculitis, unspecified; Z87.891 Personal history of nicotine dependence; Z98.84 Bariatric surgery status; E21.1 Secondary hyperparathyroidism, not elsewhere classified; R07.89 Other chest pain; K57.92 Diverticulitis of intestine, part unspecified, without perforation or abscess without bleeding; E51.9 Thiamine deficiency, unspecified; Z88.2 Allergy status to sulfonamides; Z88.5 Allergy status to narcotic agent; Z88.8 Allergy status to other drugs, medicaments and biological substances
CPT/HCPCS: 99211

== ENCOUNTER → 2021-09-12 | Outpatient (CLI) | payer BC, MEDICARE ==
[~2021-09-12] MED LIST changes: +BAMLANIVIMAB (EUA) 700 MG, ETESEVIMAB (EUA) 1,400 MG in SODIUM CHLORIDE 0.9% 100 ML IVPB ONE; -LACTATED RINGERS 1,000 ML IV SCH; +SODIUM CHLORIDE 0.9% 50 ML IVPB ONE; +SODIUM CHLORIDE 0.9% 500 ML 500 ML in EMPTY BAG 1 BAG IV PRN
[2021-09-12 09:05] VITALS: RESP 16; TEMP 98.7
[2021-09-12 09:52] VITALS: BP 139/80; PULSE 67
== END ==
LOC: PROCWHC3 07:57
PROVIDERS: ATTEND Internal Medicine
DX: U07.1 COVID-19 (principal); Z88.2 Allergy status to sulfonamides; Z88.6 Allergy status to analgesic agent; Z88.5 Allergy status to narcotic agent; Z91.09 Other allergy status, other than to drugs and biological substances
CPT/HCPCS: 96360; J3490

== ENCOUNTER → 2021-10-01 | Outpatient (CLI) | payer MEDICARE ==
[2021-10-01 16:10] VITALS: BP 150/81; PULSE 67; RESP 16; TEMP 98.2; BMI 26.9
--- NOTE | 2021-10-01 16:27 | P.BASOAP ---
Subjective Progress Note Date: 10/01/21 DATE OF SERVICE: 10/01/2021 CHIEF COMPLAINT: Follow up gastric bypass. HISTORY OF PRESENT ILLNESS: Archana Jones is a 65-year-old female who is status post gastric bypass on January 26, 2016. She is 6 years out. She comes in with new dysphagia ongoing for 3 weeks. She was taking omeprazole in the past. She has intolerance to textured foods. At her height of 5 feet 7-1/4 inches, her ideal body weight is 158 pounds. Her highest weight was 283 pounds, body mass index 44.1 Today she comes in 173 pounds from 176 pounds, 2 months ago. She has lost 3 pounds in 2 months. Lifetime weight loss is 110 pounds. She has achieved 88% lifetime excess weight loss. Body mass index is now reduced from 44.1 down to 26.9. PAST MEDICAL HISTORY: 1. Morbid obesity due to excess calories, initial BMI 44.1 2. Obstructive sleep apnea 3. Gastroesophageal reflux disease. 4. Osteoarthritis of bilateral knees 5. Personal history of colon polyps. 6. Depressive disorder 7. Panniculitis. PAST SURGICAL HISTORY: 1. Upper endoscopy. 2. Lower endoscopy. 3. Laparoscopic cholecystectomy. 4. Gastric bypass. MEDICATIONS: Home Medications Medication Instructions Recorded Confirmed Multivitamins, Thera [Multivitamin 1 tab PO DAILY 04/25/15 08/13/21 (formulary)] Cholecalciferol [Vitamin D3 (25 4,000 unit PO DAILY 10/02/15 08/13/21 Mcg = 1000 Iu)] Loratadine-Pseudoeph 5-120 mg 1 each PO DAILY PRN 02/05/16 08/13/21 [Claritin-D 12 Hour] Biotin 5 mg PO DAILY 05/15/21 08/13/21 Cyanocobalamin [Vitamin B-12] 500 mcg PO DAILY 05/15/21 08/13/21 FLUoxetine HCL [Sarafem] 20 mg PO QAM 07/24/21 08/13/21 Previous Rx's Medication Instructions Recorded Calcium Carbonate [Calcium] 600 mg PO BID #60 tablet 05/22/16 Omeprazole [PriLOSEC] 40 mg PO DAILY #30 cap 08/13/21 ALLERGIES: Allergies Allergy/AdvReac Type Severity Reaction Status Date / Time Sulfa (Sulfonamide Allergy HIVES Verified 09/12/21 09:02 Antibiotics) acetaminophen [From [place]] AdvReac Nausea & Verified 09/12/21 09:02 Vomiting codeine AdvReac Nausea & Verified 09/12/21 09:02 Vomiting hydrocodone bitartrate AdvReac Nausea & Verified 09/12/21 09:02 [From [place]] Vomiting povidone-iodine AdvReac Rash/Hives Verified 09/12/21 09:02 [From Betadine] soap [From Betadine] AdvReac Rash/Hives Verified 09/12/21 09:02 SOCIAL HISTORY: No active tobacco use; however, she is a former tobacco user. She also reports past alcohol abuse. FAMILY HISTORY: Pertinent for pancreatic cancer as well as throat cancer and stomach cancer. No reports of DVT within her family. No reports of food allergies. Pertinent history of morbid obesity. REVIEW OF SYSTEMS: CONSTITUTIONAL: At her height of 5 feet 7-1/4 inches, her ideal body weight is 158 pounds. Her highest weight was 283 pounds, body mass index 44.1 MUSCULOSKELETAL: Moderate improvement of diffuse joint pain of the bilateral hips and knees, including lower back. GASTROINTESTINAL: Past gastroesophageal reflux disease. RESPIRATORY: Resolved obstructive sleep apnea. HEMATOLOGIC: No personal history of coagulopathy or easy bruising. HEENT: Denies any trouble with vision or hearing. She wears glasses. ENDOCRINE: No reports of diabetes or hypothyroidism. NEURO: No reports strokes or seizure disorders. PSYCH: No reports of suicidal ideation. Now she has depression. RESPIRATORY: Denies pneumonia. Denies any troubles with breathing or dyspnea on exertion. CARDIOVASCULAR: Denies any chest pain, palpitations, or recent heart attacks. SKIN: Has panniculitis. No skin cancer. PHYSICAL EXAM: VITAL SIGNS: 5 feet 7-1/4 inches, 173 pounds. Body mass index of 26.9 Vital Signs Temp 98.2 F 10/01/21 16:08 Pulse 67 10/01/21 16:08 Resp 16 10/01/21 16:08 BP 150/81 10/01/21 16:08 Pulse Ox Intake & Output 10/01/21 10/01/21 10/02/21 06:59 18:59 06:59 Weight 78.471 kg ABDOMEN: Soft, nontender. GENERAL: Well-developed female in distress. MUSCULOSKELETAL: No clubbing, cyanosis. HEENT: No sclerae icterus. Extraocular movements grossly intact. NECK: Supple without lymphadenopathy. No JV distention. CHEST: Non-labored respirations and equal bilateral excursions. CARDIOVASCULAR: Regular rate and rhythm. Palpable 2+ radial pulses. NEUROLOGIC: No focal or lateralizing signs. PSYCH: Appropriate affect. Alert and oriented to person, place and time. SKIN: Well perfused. Good skin turgor ASSESSMENT: 1. Morbid obesity due to excess caloric intake. 2. Body mass index reduced from 44.1 down to 27.4 3. Obstructive sleep apnea. 4. Osteoarthritis of the bilateral knees 5. Osteoarthritis of the bilateral feet 6. History of gastrointestinal reflux disease with esophagitis. 7. Diaphragmatic hiatal hernia. 8. Family history of gastrointestinal malignancies, including the throat, stomach and pancreatic cancer. 9. Family history of morbid obesity. 10. Hypertensive heart disease without cardiomyopathy. 11. Depression without recent psychosis. 12. Zinc deficiency 13. Former tobacco use. 14. Status post Marifer-en-Y gastric bypass. 15. Panniculitis. 16. Secondary hyperparathyroidism. 17. Thiamine deficiency. 18. Atypical chest pain 19. Diverticulitis 20. Dysphagia PLAN: 1. Recommend upper endoscopy for dysphagia. Objective - Vital Signs Vital signs: Vital Signs Temp 98.2 F 10/01/21 16:08 Pulse 67 10/01/21 16:08 Resp 16 10/01/21 16:08 BP 150/81 10/01/21 16:08 Pulse Ox Intake & Output 09/30/21 10/01/21 10/01/21 18:59 06:59 18:59 Weight 78.471 kg Assessment/Plan Plan: Date: 10/01/21 Initial Weight: 122.924 kg Initial BMI: 42.1 Current Weight: 78.471 kg Current BMI: 26.9 Type of Surgery: Total Volume in Band: Previous Volume: Volume Removed: Volume Added: Band Size:
== END ==
LOC: BARWHC3 09:51
PROVIDERS: ATTEND Surgery Plastic and Reconstructive Surgery
DX: E66.01 Morbid (severe) obesity due to excess calories (principal); M17.0 Bilateral primary osteoarthritis of knee; M19.071 Primary osteoarthritis, right ankle and foot; M19.072 Primary osteoarthritis, left ankle and foot; K44.9 Diaphragmatic hernia without obstruction or gangrene; I11.9 Hypertensive heart disease without heart failure; F32.A Depression, unspecified; E60 Dietary zinc deficiency; M79.3 Panniculitis, unspecified; N25.81 Secondary hyperparathyroidism of renal origin; R07.89 Other chest pain; E51.9 Thiamine deficiency, unspecified; G47.33 Obstructive sleep apnea (adult) (pediatric); K57.92 Diverticulitis of intestine, part unspecified, without perforation or abscess without bleeding; R13.10 Dysphagia, unspecified; Z87.19 Personal history of other diseases of the digestive system; Z87.891 Personal history of nicotine dependence; Z98.84 Bariatric surgery status; Z80.0 Family history of malignant neoplasm of digestive organs; Z83.49 Family history of other endocrine, nutritional and metabolic diseases; Z88.2 Allergy status to sulfonamides; Z88.5 Allergy status to narcotic agent; Z88.6 Allergy status to analgesic agent; Z88.8 Allergy status to other drugs, medicaments and biological substances; Z68.27 Body mass index [BMI] 27.0-27.9, adult
CPT/HCPCS: 99211

== ENCOUNTER 2021-11-03 07:54 | Day surgery (SDC) | payer MEDICARE ==
--- NOTE | 2021-11-03 07:42 | P.GSHP ---
History of Present Illness H&P Date: 11/03/21 CHIEF COMPLAINT: GERD HISTORY OF PRESENT ILLNESS: The patient is a 66-year-old female who presents reports gastroesophageal reflux disease. Upper endoscopy was offered for further evaluation and management. PAST MEDICAL HISTORY: Please see list. PAST SURGICAL HISTORY: Please see list. MEDICATIONS: Please see list. ALLERGIES: Please see list. SOCIAL HISTORY: No illicit drug use FAMILY HISTORY: No reports of Crohn disease or ulcerative colitis. REVIEW OF ORGAN SYSTEMS: CONSTITUTIONAL: No reports of fevers or chills. GI: Denies any blood in stools or constipation. PHYSICAL EXAM: VITAL SIGNS: Stable GENERAL: Well-developed and pleasant in no acute distress. HEENT: No scleral icterus. Extraocular movements grossly intact. Moist buccal mucosa. NECK: Supple without lymphadenopathy. CHEST: Unlabored respirations. Equal bilateral excursions. CARDIOVASCULAR: Regular rate and rhythm. Distal 2+ pulses. ABDOMEN: Soft, nondistended. MUSCULOSKELETAL: No clubbing, cyanosis, or edema. ASSESSMENT: 1. Gastroesophageal reflux disease PLAN: 1. Recommend proceeding with an upper endoscopy Past Medical History Past Medical History: GERD/Reflux, Osteoarthritis (OA), Sleep Apnea/CPAP/BIPAP, Syncope Additional Past Medical History / Comment(s): hx HIATAL HERNIA. diverticulitis, COVID POSTITIVE ON 09/13/21. DOES NOT USE HER CPAP. History of Any Multi-Drug Resistant Organisms: None Reported Past Surgical History: Bariatric Surgery, Cholecystectomy Additional Past Surgical History / Comment(s): COLPOSCOPY. EGD/Colonoscopy, D&C. 2017. Gastric bypass , repair of hiatal hernia. sinus reconstruction 12-- Past Anesthesia/Blood Transfusion Reactions: No Reported Reaction Past Psychological History: No Psychological Hx Reported Smoking Status: Former smoker Past Alcohol Use History: Occasional Additional Past Alcohol Use History / Comment(s): QUIT SMOKING 1993, STARTED SMOKING 1973, 2PPD Past Drug Use History: None Reported Additional Drug Use History / Comment(s): CBD - Past Family History Mother Family Medical History: Cancer Additional Family Medical History / Comment(s): pancreatic cancer Father Family Medical History: Congestive Heart Failure (CHF), Myocardial Infarction ([place]) Medications and Allergies Home Medications Medication Instructions Recorded Confirmed Type Multivitamins, Thera [Multivitamin 1 tab PO DAILY 04/25/15 10/30/21 History (formulary)] Cholecalciferol [Vitamin D3 (25 4,000 unit PO DAILY 10/02/15 10/30/21 History Mcg = 1000 Iu)] Loratadine-Pseudoeph 5-120 mg 1 each PO DAILY PRN 02/05/16 10/30/21 History [Claritin-D 12 Hour] Calcium Carbonate [Calcium] 600 mg PO BID #60 tablet 05/22/16 10/30/21 Rx Biotin 5 mg PO DAILY 05/15/21 10/30/21 History Cyanocobalamin [Vitamin B-12] 500 mcg PO DAILY 05/15/21 10/30/21 History FLUoxetine HCL [Sarafem] 20 mg PO QAM 07/24/21 10/30/21 History Omeprazole [PriLOSEC] 40 mg PO QAM PRN 10/30/21 10/30/21 History Allergies Allergy/AdvReac Type Severity Reaction Status Date / Time Sulfa (Sulfonamide Allergy HIVES Verified 09/12/21 09:02 Antibiotics) codeine AdvReac Nausea & Verified 09/12/21 09:02 Vomiting hydrocodone bitartrate AdvReac Nausea & Verified 09/12/21 09:02 [From [place]] Vomiting povidone-iodine AdvReac Rash/Hives Verified 09/12/21 09:02 [From Betadine] soap [From Betadine] AdvReac Rash/Hives Verified 09/12/21 09:02
[~2021-11-03 07:54] MED LIST changes: -BAMLANIVIMAB (EUA) 700 MG, ETESEVIMAB (EUA) 1,400 MG in SODIUM CHLORIDE 0.9% 100 ML IVPB ONE; +LACTATED RINGERS 1,000 ML IV SCH; +LIDOCAINE 1% (10MG/ML) FOR IV START INTRADERMA PRN; -SODIUM CHLORIDE 0.9% 50 ML IVPB ONE; -SODIUM CHLORIDE 0.9% 500 ML 500 ML in EMPTY BAG 1 BAG IV PRN
[2021-11-03 08:39] VITALS: TEMP 97.1
[2021-11-03] MEDS ORDERED: PROPOFOL 10 MG/ML 20 ML VIAL IV ONE (08:51)
[2021-11-03] MEDS ORDERED: LIDOCAINE 1% INJ 10MG/ML (20 ML MDV) ONE (08:51)
--- NOTE | 2021-11-03 09:22 | P.PCN ---
Date of Procedure: 11/03/21 Description of Procedure: PREOPERATIVE DIAGNOSIS: Dysphagia. Nausea with vomiting. POSTOPERATIVE DIAGNOSIS: Dysphagia. Nausea with vomiting. Esophageal stenosis with ulceration OPERATION: Esophagogastrojejunoscopy with balloon dilatation from 7 to 10 mm, esophageal junction SURGEON: Yu Marrufo MD ANESTHESIA: MAC. INDICATIONS: The patient is a 66-year-old female who presents with a history of dysphagia including nausea and vomiting. Benefits and risks of the procedure were described. Informed consent was obtained. DESCRIPTION: The patient was brought into the endoscopy suite and laid in the left lateral decubitus position. After a timeout was confirmed, the procedure was initiated. An Olympus gastroscope was passed along the posterior oropharynx down to the distal esophagus where the squamocolumnar junction was unremarkable. The gastric pouch was entered. A gastrojejunal stricture of 7 mm was found as the adult gastroscope was 9.5 mm in size. A [employer] pyloric balloon dilator was placed through the scope. Final insufflation 8 to 10 mm was performed with a total of 2 minutes. Additional dilation was prohibited due to acute esophageal ulceration at gastrojejunal junction. The scope could not pass beyond the stricture. The GI tract was desufflated. The patient tolerated the procedure well. FINDINGS: Squamocolumnar junction with acute esophageal ulceration and stenosis at 37 cm Stricture of approximately 7 mm encountered. Pyloric balloon dilation to 10 mm limited due to acute on chronic ulceration at GE junction. RECOMMENDATIONS: Start combined therapy of Carafate and omeprazole of at least 4 weeks. Repeat upper endoscopy in 2 weeks to 4 weeks Plan - Discharge Summary Discharge Rx Participant: No New Discharge Prescriptions: New Sucralfate [Carafate] 1 gm PO BID #30 tablet Omeprazole 40 mg PO BID #30 cap Continue Loratadine-Pseudoeph 5-120 mg [Claritin-D 12 Hour] 1 each PO DAILY PRN PRN Reason: allergies FLUoxetine HCL [Sarafem] 20 mg PO QAM Discontinued Multivitamins, Thera [Multivitamin (formulary)] 1 tab PO DAILY Cholecalciferol [Vitamin D3 (25 Mcg = 1000 Iu)] 4,000 unit PO DAILY Calcium Carbonate [Calcium] 600 mg PO BID #60 tablet Cyanocobalamin [Vitamin B-12] 500 mcg PO DAILY Biotin 5 mg PO DAILY Omeprazole [PriLOSEC] 40 mg PO QAM PRN PRN Reason: gerd Discharge Medication List Loratadine-Pseudoeph 5-120 mg [Claritin-D 12 Hour] 1 each PO DAILY PRN 02/05/16 [History] FLUoxetine HCL [Sarafem] 20 mg PO QAM 07/24/21 [History] Omeprazole 40 mg PO BID #30 cap 11/03/21 [Rx] Sucralfate [Carafate] 1 gm PO BID #30 tablet 11/03/21 [Rx] Follow up Appointment(s[facility]Ref[facility](s[facility] [place] [facility] - 11/05/21 Patient Instructions/Handouts: Esophageal Stricture (GEN), Esophageal Dilation (GEN) Activity/Diet/Wound Care/Special Instructions: Liquid diet. Crush medications or open capsules of your medications Discharge Disposition: HOME SELF-CARE
[2021-11-03 09:33] VITALS: BP 125/79; PULSE 63; RESP 16
== END 2021-11-03 10:02 | disposition home or self-care (01) ==
LOC: ORWHC2ENDO 07:54
PROVIDERS: ATTEND Surgery Plastic and Reconstructive Surgery
DX: K22.10 Ulcer of esophagus without bleeding (principal); K22.2 Esophageal obstruction; K21.9 Gastro-esophageal reflux disease without esophagitis; K44.9 Diaphragmatic hernia without obstruction or gangrene; G47.33 Obstructive sleep apnea (adult) (pediatric)
CPT/HCPCS: 43249; J2001; J2704; C1726

== ENCOUNTER → 2021-11-05 | Outpatient (CLI) | payer MEDICARE ==
[2021-11-05 16:14] VITALS: BP 152/89; PULSE 60; RESP 16; TEMP 98.3; BMI 26.6
--- NOTE | 2021-11-05 16:31 | P.BASOAP ---
Subjective Progress Note Date: 11/05/21 DATE OF SERVICE: 11/05/2021 CHIEF COMPLAINT: Follow up gastric bypass. HISTORY OF PRESENT ILLNESS: Archana Jones is a 65-year-old female who is status post gastric bypass on January 26, 2016. She is 6 years out. She has dysphagia. She is status post upper endoscopy with dilation. She is tolerating soft diet and pureed diet. She reports she is planning a trip. At her height of 5 feet 7-1/4 inches, her ideal body weight is 158 pounds. Her highest weight was 283 pounds, body mass index 44.1 Today she comes in 171 pounds from 173 pounds, 1 month ago. She has lost 2 pounds in 1 months. Lifetime weight loss is 112 pounds. She has achieved 90 % lifetime excess weight loss. Body mass index is now reduced from 44.1 down to 26.6. PHYSICAL EXAM: VITAL SIGNS: 5 feet 7-1/4 inches, 171 pounds. Body mass index of 26.6 Vital Signs Temp 98.3 F 11/05/21 16:08 Pulse 60 11/05/21 16:08 Resp 16 11/05/21 16:08 BP 152/89 11/05/21 16:08 Pulse Ox ABDOMEN: Soft, nontender. GENERAL: Well-developed female in distress. MUSCULOSKELETAL: No clubbing, cyanosis. HEENT: No sclerae icterus. Extraocular movements grossly intact. NECK: Supple without lymphadenopathy. No JV distention. CHEST: Non-labored respirations and equal bilateral excursions. CARDIOVASCULAR: Regular rate and rhythm. Palpable 2+ radial pulses. NEUROLOGIC: No focal or lateralizing signs. PSYCH: Appropriate affect. Alert and oriented to person, place and time. SKIN: Well perfused. Good skin turgor EGD FINDINGS: Squamocolumnar junction with acute esophageal ulceration and stenosis at 37 cm Stricture of approximately 7 mm encountered. Pyloric balloon dilation to 10 mm limited due to acute on chronic ulceration at GE junction. ASSESSMENT: 1. Morbid obesity due to excess caloric intake. 2. Body mass index reduced from 44.1 down to 26.6 3. Obstructive sleep apnea. 4. Osteoarthritis of the bilateral knees 5. Osteoarthritis of the bilateral feet 6. History of gastrointestinal reflux disease with esophagitis. 7. Diaphragmatic hiatal hernia. 8. Family history of gastrointestinal malignancies, including the throat, stomach and pancreatic cancer. 9. Family history of morbid obesity. 10. Hypertensive heart disease without cardiomyopathy. 11. Depression without recent psychosis. 12. Zinc deficiency 13. Former tobacco use. 14. Status post Marifer-en-Y gastric bypass. 15. Panniculitis. 16. Secondary hyperparathyroidism. 17. Thiamine deficiency. 18. Atypical chest pain 19. Diverticulitis 20. Dysphagia 21. Esophageal stenosis PLAN: 1. She is doing well despite her severe stenosis. Recommend upper endoscopy with dilation 2. Continue with carafate and omeprazole for esophageal ulcers Objective - Vital Signs Vital signs: Vital Signs Temp 98.3 F 11/05/21 16:08 Pulse 60 11/05/21 16:08 Resp 16 11/05/21 16:08 BP 152/89 11/05/21 16:08 Pulse Ox Intake & Output 11/04/21 11/05/21 11/05/21 18:59 06:59 18:59 Weight 77.564 kg Assessment/Plan Plan: Date: 11/05/21 Initial Weight: 122.924 kg Initial BMI: 42.1 Current Weight: 77.564 kg Current BMI: 26.6 Type of Surgery: Total Volume in Band: Previous Volume: Volume Removed: Volume Added: Band Size:
== END ==
LOC: BARWHC3 15:56
PROVIDERS: ATTEND Surgery Plastic and Reconstructive Surgery
DX: E66.01 Morbid (severe) obesity due to excess calories (principal); Z68.26 Body mass index [BMI] 26.0-26.9, adult; G47.33 Obstructive sleep apnea (adult) (pediatric); M17.0 Bilateral primary osteoarthritis of knee; M19.071 Primary osteoarthritis, right ankle and foot; M19.072 Primary osteoarthritis, left ankle and foot; K21.00 Gastro-esophageal reflux disease with esophagitis, without bleeding; K44.9 Diaphragmatic hernia without obstruction or gangrene; Z80.0 Family history of malignant neoplasm of digestive organs; Z83.49 Family history of other endocrine, nutritional and metabolic diseases; I11.9 Hypertensive heart disease without heart failure; F32.A Depression, unspecified; E60 Dietary zinc deficiency; Z87.891 Personal history of nicotine dependence; Z98.84 Bariatric surgery status; M79.3 Panniculitis, unspecified; E21.1 Secondary hyperparathyroidism, not elsewhere classified; E51.9 Thiamine deficiency, unspecified; R07.89 Other chest pain; K57.92 Diverticulitis of intestine, part unspecified, without perforation or abscess without bleeding; R13.10 Dysphagia, unspecified; Z88.2 Allergy status to sulfonamides; Z88.5 Allergy status to narcotic agent; Z91.048 Other nonmedicinal substance allergy status
CPT/HCPCS: 99211

== ENCOUNTER 2021-12-01 08:07 | Day surgery (SDC) | payer MEDICARE ==
[2021-11-26 14:37] VITALS: BMI 26.2
[~2021-12-01 08:07] MED LIST changes: -LIDOCAINE 1% (10MG/ML) FOR IV START INTRADERMA PRN
--- NOTE | 2021-12-01 08:24 | P.GSHP ---
History of Present Illness H&P Date: 12/01/21 CHIEF COMPLAINT: GERD HISTORY OF PRESENT ILLNESS: The patient is a 66-year-old female who presents reports gastroesophageal reflux disease. Upper endoscopy was offered for further evaluation and management. PAST MEDICAL HISTORY: Please see list. PAST SURGICAL HISTORY: Please see list. MEDICATIONS: Please see list. ALLERGIES: Please see list. SOCIAL HISTORY: No illicit drug use FAMILY HISTORY: No reports of Crohn disease or ulcerative colitis. REVIEW OF ORGAN SYSTEMS: CONSTITUTIONAL: No reports of fevers or chills. GI: Denies any blood in stools or constipation. PHYSICAL EXAM: VITAL SIGNS: Stable GENERAL: Well-developed and pleasant in no acute distress. HEENT: No scleral icterus. Extraocular movements grossly intact. Moist buccal mucosa. NECK: Supple without lymphadenopathy. CHEST: Unlabored respirations. Equal bilateral excursions. CARDIOVASCULAR: Regular rate and rhythm. Distal 2+ pulses. ABDOMEN: Soft, nondistended. MUSCULOSKELETAL: No clubbing, cyanosis, or edema. ASSESSMENT: 1. Gastroesophageal reflux disease PLAN: 1. Recommend proceeding with an upper endoscopy Past Medical History Past Medical History: GERD/Reflux, Osteoarthritis (OA), Sleep Apnea/CPAP/BIPAP, Syncope Additional Past Medical History / Comment(s): diverticulitis, COVID POSTITIVE ON 09/13/21. DOES NOT USE HER CPAP. History of Any Multi-Drug Resistant Organisms: None Reported Past Surgical History: Bariatric Surgery, Cholecystectomy, Hernia Repair Additional Past Surgical History / Comment(s): COLPOSCOPY. EGD/Colonoscopy, D&C. 2017. Gastric bypass , repair of hiatal hernia. sinus reconstruction -- Past Anesthesia/Blood Transfusion Reactions: No Reported Reaction Smoking Status: Former smoker - Past Family History Mother Family Medical History: Cancer Additional Family Medical History / Comment(s): pancreatic cancer Father Family Medical History: Congestive Heart Failure (CHF), Myocardial Infarction ([place]) Medications and Allergies Home Medications Medication Instructions Recorded Confirmed Type Loratadine-Pseudoeph 5-120 mg 1 each PO DAILY PRN 02/05/16 11/26/21 History [Claritin-D 12 Hour] FLUoxetine HCL [Sarafem] 40 mg PO QAM 07/24/21 11/26/21 History Omeprazole 40 mg PO BID #30 cap 11/03/21 11/26/21 Rx Sucralfate [Carafate] 1 gm PO BID #30 tablet 11/03/21 11/26/21 Rx Allergies Allergy/AdvReac Type Severity Reaction Status Date / Time Sulfa (Sulfonamide Allergy HIVES Verified 11/26/21 14:29 Antibiotics) codeine AdvReac Nausea & Verified 11/26/21 14:29 Vomiting hydrocodone bitartrate AdvReac Nausea & Verified 11/26/21 14:29 [From [place]] Vomiting povidone-iodine AdvReac Rash/Hives Verified 11/26/21 14:29 [From Betadine] soap [From Betadine] AdvReac Rash/Hives Verified 11/26/21 14:29
[2021-12-01 08:41] VITALS: TEMP 99
[2021-12-01] MEDS ORDERED: SUCCINYLCHOLINE CHLORIDE 100 MG/5 ML SYR IV ONE (08:52)
[2021-12-01] MEDS ORDERED: PROPOFOL 10 MG/ML 20 ML VIAL IV ONE (08:52)
[2021-12-01] MEDS ORDERED: LIDOCAINE 1% INJ 10MG/ML (20 ML MDV) ONE (08:52)
--- NOTE | 2021-12-01 09:48 | P.PCN ---
Date of Procedure: 12/01/21 Description of Procedure: PREOPERATIVE DIAGNOSIS: Dysphagia. Esophageal stenosis Nausea and vomiting POSTOPERATIVE DIAGNOSIS: Dysphagia. Esophageal stenosis, distal Nausea and vomiting OPERATION: Esophagogastrojejunoscopy with balloon dilatation from 6 to 13 mm. SURGEON: Yu Marrufo MD ANESTHESIA: GENERAL INDICATIONS: The patient is a 66-year-old female who presents with a history of dysphagia and esophageal stenosis. Benefits and risks of the procedure were described. Informed consent was obtained. DESCRIPTION: The patient was brought into the endoscopy suite and laid in the left lateral decubitus position. After a timeout was confirmed, the procedure was initiated. An Olympus gastroscope was passed along the posterior oropharynx down to the distal esophagus where the squamocolumnar junction was unremarkable. The gastric pouch was entered. A esophageal stricture of 6 mm was found as the adult gastroscope was 9.5 mm in size. To prevent risk of aspiration, general anesthetic was performed. A [employer] balloon dilator was placed through the scope. Initial stricture was addressed using pyloric balloon 8 mm to 10 mm. The balloon was exchanged for an esophageal dilation balloon. Final insufflation up to 13 mm was performed with a total of 2 minutes. The scope was advanced up to 55 cm from the incisors into the Marifer limb. The mucosa of the gastrojejunal anastomosis was intact. No chronic gastrojejunal marginal ulcer was encountered. No full-thickness injury was encountered. The GI tract was desufflated. The patient tolerated the procedure well. FINDINGS: Squamocolumnar junction unremarkable at 32 cm. Stricture of approximately 6 mm encountered of the distal esophagus No chronic gastrojejunal ulceration encountered. Successful balloon dilatation to 13 mm. Gastric pouch 3 cm. RECOMMENDATIONS: Continue therapy of Carafate and omeprazole of at least 4 weeks. Repeat upper endoscopy for goal dilation of 20 mm in 4-6 weeks Plan - Discharge Summary Discharge Rx Participant: No New Discharge Prescriptions: New Omeprazole [PriLOSEC] 40 mg PO DAILY #90 cap Sucralfate [Carafate] 1 gm PO BID #120 tablet Continue Loratadine-Pseudoeph 5-120 mg [Claritin-D 12 Hour] 1 each PO DAILY PRN PRN Reason: allergies FLUoxetine HCL [Sarafem] 40 mg PO QAM Sucralfate [Carafate] 1 gm PO BID #30 tablet Omeprazole 40 mg PO BID #30 cap Discharge Medication List Loratadine-Pseudoeph 5-120 mg [Claritin-D 12 Hour] 1 each PO DAILY PRN 02/05/16 [History] FLUoxetine HCL [Sarafem] 40 mg PO QAM 07/24/21 [History] Omeprazole 40 mg PO BID #30 cap 11/03/21 [Rx] Sucralfate [Carafate] 1 gm PO BID #30 tablet 11/03/21 [Rx] Omeprazole [PriLOSEC] 40 mg PO DAILY #90 cap 12/01/21 [Rx] Sucralfate [Carafate] 1 gm PO BID #120 tablet 12/01/21 [Rx] Follow up Appointment(s)/Referral(s): [facility] [NON-STAFF] - 12/03/21 Patient Instructions/Handouts: Esophageal Dilation (DC), Complete Blenderized Diet (DC) Activity/Diet/Wound Care/Special Instructions: Pureed diet Discharge Disposition: HOME SELF-CARE
[2021-12-01 09:50] VITALS: RESP 16
--- NOTE | 2021-12-01 10:07 | XR ---
EXAMINATION TYPE: XR chest 1V portable DATE OF EXAM: 12/01/2021 HISTORY: Shortness of breath. COMPARISON: None. TECHNIQUE: Single view of the chest is submitted. FINDINGS: Demonstrated are scattered senescent parenchymal change. There is no evidence for focal infiltrate. Linear atelectasis or parenchymal scarring left lung base. The heart is stable. Hilar and mediastinal structures are within normal limits. Degenerative changes are seen of the dorsal spine. IMPRESSION: 1. Chronic changes without evidence for acute pulmonary disease.
[2021-12-01 10:28] VITALS: BP 117/75; PULSE 78
== END 2021-12-01 10:43 | disposition home or self-care (01) ==
LOC: ORWHC2ENDO 08:07
PROVIDERS: ATTEND Surgery Plastic and Reconstructive Surgery
DX: K21.9 Gastro-esophageal reflux disease without esophagitis (principal); K57.90 Diverticulosis of intestine, part unspecified, without perforation or abscess without bleeding; K22.2 Esophageal obstruction; G47.33 Obstructive sleep apnea (adult) (pediatric); M19.90 Unspecified osteoarthritis, unspecified site; Z79.899 Other long term (current) drug therapy; Z87.891 Personal history of nicotine dependence; Z88.3 Allergy status to other anti-infective agents; Z88.5 Allergy status to narcotic agent; Z91.041 Radiographic dye allergy status; Z88.8 Allergy status to other drugs, medicaments and biological substances
CPT/HCPCS: 43249; 71045; J2001; J0330; J2704; C1726; C1727

== ENCOUNTER 2021-12-22 07:50 | Day surgery (SDC) | payer MEDICARE ==
[2021-12-18 15:01] VITALS: BMI 25.8
--- NOTE | 2021-12-22 00:26 | P.GSHP ---
History of Present Illness H&P Date: 12/22/21 CHIEF COMPLAINT: GERD HISTORY OF PRESENT ILLNESS: The patient is a [id number] female who presents reports gastroesophageal reflux disease. Upper endoscopy was offered for further evaluation and management. PAST MEDICAL HISTORY: Please see list. PAST SURGICAL HISTORY: Please see list. MEDICATIONS: Please see list. ALLERGIES: Please see list. SOCIAL HISTORY: No illicit drug use FAMILY HISTORY: No reports of Crohn disease or ulcerative colitis. REVIEW OF ORGAN SYSTEMS: CONSTITUTIONAL: No reports of fevers or chills. GI: Denies any blood in stools or constipation. PHYSICAL EXAM: VITAL SIGNS: Stable GENERAL: Well-developed and pleasant in no acute distress. HEENT: No scleral icterus. Extraocular movements grossly intact. Moist buccal mucosa. NECK: Supple without lymphadenopathy. CHEST: Unlabored respirations. Equal bilateral excursions. CARDIOVASCULAR: Regular rate and rhythm. Distal 2+ pulses. ABDOMEN: Soft, nondistended. MUSCULOSKELETAL: No clubbing, cyanosis, or edema. ASSESSMENT: 1. Gastroesophageal reflux disease PLAN: 1. Recommend proceeding with an upper endoscopy Past Medical History Past Medical History: GERD/Reflux, Osteoarthritis (OA), Sleep Apnea/CPAP/BIPAP, Syncope Additional Past Medical History / Comment(s): diverticulitis, DOES NOT USE HER CPAP. History of Any Multi-Drug Resistant Organisms: None Reported Past Surgical History: Bariatric Surgery, Cholecystectomy, Hernia Repair Additional Past Surgical History / Comment(s): COLPOSCOPY. EGD/Colonoscopy, D&C. 2017. Gastric bypass , repair of hiatal hernia sinus reconstruction --, EGD WITH DILATATION 12/01/21 Past Anesthesia/Blood Transfusion Reactions: No Reported Reaction Smoking Status: Former smoker - Past Family History Mother Family Medical History: Cancer Additional Family Medical History / Comment(s): pancreatic cancer Father Family Medical History: Congestive Heart Failure (CHF), Myocardial Infarction ([place]) Medications and Allergies Home Medications Medication Instructions Recorded Confirmed Type Loratadine-Pseudoeph 5-120 mg 1 each PO DAILY PRN 02/05/16 12/18/21 History [Claritin-D 12 Hour] FLUoxetine HCL [Sarafem] 40 mg PO QAM 07/24/21 12/18/21 History Omeprazole 40 mg PO BID #30 cap 11/03/21 12/18/21 Rx Sucralfate [Carafate] 1 gm PO BID #30 tablet 11/03/21 12/18/21 Rx Allergies Allergy/AdvReac Type Severity Reaction Status Date / Time Sulfa (Sulfonamide Allergy HIVES Verified 12/18/21 14:50 Antibiotics) codeine AdvReac Nausea & Verified 12/18/21 14:50 Vomiting hydrocodone bitartrate AdvReac Nausea & Verified 12/18/21 14:50 [From [place]] Vomiting povidone-iodine AdvReac Rash/Hives Verified 12/18/21 14:50 [From Betadine] soap [From Betadine] AdvReac Rash/Hives Verified 12/18/21 14:50
[~2021-12-22 07:50] MED LIST changes: +LIDOCAINE 1% (10MG/ML) FOR IV START INTRADERMA PRN
[2021-12-22 08:14] VITALS: TEMP 97.5
[2021-12-22] MEDS ORDERED: PROPOFOL 10 MG/ML 20 ML VIAL IV ONE (09:00)
[2021-12-22] MEDS ORDERED: LIDOCAINE 2% INJ 20 MG/ML (2 ML VIAL) ONE (09:00)
--- NOTE | 2021-12-22 09:26 | P.PCN ---
Date of Procedure: 12/22/21 Description of Procedure: PREOPERATIVE DIAGNOSIS: Dysphagia. Esophageal stenosis POSTOPERATIVE DIAGNOSIS: Dysphagia. Esophagea stenosis, lower esophagus OPERATION: Esophagogastrojejunoscopy with balloon dilatation from 12 to 15 mm pyloric balloon SURGEON: Yu Marrufo MD ANESTHESIA: MAC. INDICATIONS: The patient is a 66-year-old female who presents with a history of dysphagia due to esophageal stenosis Benefits and risks of the procedure were described. Informed consent was obtained. DESCRIPTION: The patient was brought into the endoscopy suite and laid in the left lateral decubitus position. After a timeout was confirmed, the procedure was initiated. An Olympus gastroscope was passed along the posterior oropharynx down to the distal esophagus where the squamocolumnar junction was unremarkable. The gastric pouch was entered. A distal esophageal stenosis of 8 mm was found. The ga strojejunal anastomosis was within normal limits. A [employer] pyloric balloon dilator was placed through the scope. Final insufflation up to 15 mm was performed with a total of 2 minutes. The scope was advanced up to 60 cm from the incisors into the Marifer limb. The mucosa of the gastrojejunal anastomosis was intact. No chronic gastrojejunal marginal ulcer was encountered. No full-thickness injury was encountered. The GI tract was desufflated. The patient tolerated the procedure well. FINDINGS: Esophageal stenosis at 37 cm from the incisors. Stricture of approximately 8 mm encountered. No chronic gastrojejunal ulceration encountered. Successful lower esophageal balloon dilatation to 12 to 15 mm using pyloric balloon RECOMMENDATIONS: Continue omeprazole and Carafate. Repeat upper endoscopy in 3-4 weeks Plan - Discharge Summary Discharge Rx Participant: No New Discharge Prescriptions: New Sucralfate [Carafate] 1 gm PO BID #120 tablet Omeprazole [PriLOSEC] 40 mg PO DAILY #90 cap Continue Loratadine-Pseudoeph 5-120 mg [Claritin-D 12 Hour] 1 each PO DAILY PRN PRN Reason: allergies FLUoxetine HCL [Sarafem] 40 mg PO QAM Discontinued Sucralfate [Carafate] 1 gm PO BID #30 tablet Omeprazole 40 mg PO BID #30 cap Discharge Medication List Loratadine-Pseudoeph 5-120 mg [Claritin-D 12 Hour] 1 each PO DAILY PRN 02/05/16 [History] FLUoxetine HCL [Sarafem] 40 mg PO QAM 07/24/21 [History] Omeprazole [PriLOSEC] 40 mg PO DAILY #90 cap 12/22/21 [Rx] Sucralfate [Carafate] 1 gm PO BID #120 tablet 12/22/21 [Rx] Follow up Appointment(s)/Ref[place](s[place] [facility] [place] - 01/07/22 Patient Instructions/Handouts: Esophageal Dilation (DC) Activity/Diet/Wound Care/Special Instructions: Avoid steak, pork chop, salads Discharge Disposition: HOME SELF-CARE
[2021-12-22 10:00] VITALS: BP 135/78; PULSE 78; RESP 18
== END 2021-12-22 10:02 | disposition home or self-care (01) ==
LOC: ORWHC2ENDO 07:50
PROVIDERS: ATTEND Surgery Plastic and Reconstructive Surgery
DX: K22.2 Esophageal obstruction (principal); G47.30 Sleep apnea, unspecified; K21.9 Gastro-esophageal reflux disease without esophagitis; M19.90 Unspecified osteoarthritis, unspecified site; Z82.49 Family history of ischemic heart disease and other diseases of the circulatory system; Z87.891 Personal history of nicotine dependence; Z88.2 Allergy status to sulfonamides; Z88.5 Allergy status to narcotic agent; Z88.8 Allergy status to other drugs, medicaments and biological substances; Z90.49 Acquired absence of other specified parts of digestive tract; Z98.84 Bariatric surgery status
CPT/HCPCS: 43249; J2704; J2001; C1727

== ENCOUNTER 2022-01-12 07:41 | Day surgery (SDC) | payer MEDICARE ==
[2022-01-09 09:07] VITALS: BMI 26.2
--- NOTE | 2022-01-12 07:02 | P.GSHP ---
History of Present Illness H&P Date: 01/12/22 CHIEF COMPLAINT: GERD HISTORY OF PRESENT ILLNESS: The patient is a 66-year-old female who presents reports gastroesophageal reflux disease. Upper endoscopy was offered for further evaluation and management. PAST MEDICAL HISTORY: Please see list. PAST SURGICAL HISTORY: Please see list. MEDICATIONS: Please see list. ALLERGIES: Please see list. SOCIAL HISTORY: No illicit drug use FAMILY HISTORY: No reports of Crohn disease or ulcerative colitis. REVIEW OF ORGAN SYSTEMS: CONSTITUTIONAL: No reports of fevers or chills. GI: Denies any blood in stools or constipation. PHYSICAL EXAM: VITAL SIGNS: Stable GENERAL: Well-developed and pleasant in no acute distress. HEENT: No scleral icterus. Extraocular movements grossly intact. Moist buccal mucosa. NECK: Supple without lymphadenopathy. CHEST: Unlabored respirations. Equal bilateral excursions. CARDIOVASCULAR: Regular rate and rhythm. Distal 2+ pulses. ABDOMEN: Soft, nondistended. MUSCULOSKELETAL: No clubbing, cyanosis, or edema. ASSESSMENT: 1. Gastroesophageal reflux disease PLAN: 1. Recommend proceeding with an upper endoscopy Past Medical History Past Medical History: GERD/Reflux, Osteoarthritis (OA), Sleep Apnea/CPAP/BIPAP, Syncope Additional Past Medical History / Comment(s): diverticulitis, COVID POSTITIVE ON 09/13/21. DOES NOT USE HER CPAP. ESOPHAGUS -ULCER History of Any Multi-Drug Resistant Organisms: None Reported Past Surgical History: Bariatric Surgery, Cholecystectomy, Hernia Repair Additional Past Surgical History / Comment(s): COLPOSCOPY. EGD/Colonoscopy, D&C. 2017. Gastric bypass , repair of hiatal hernia. sinus reconstruction -- Past Anesthesia/Blood Transfusion Reactions: No Reported Reaction Smoking Status: Former smoker - Past Family History Mother Family Medical History: Cancer Additional Family Medical History / Comment(s): pancreatic cancer Father Family Medical History: Congestive Heart Failure (CHF), Myocardial Infarction ([place]) Medications and Allergies Home Medications Medication Instructions Recorded Confirmed Type Loratadine-Pseudoeph 5-120 mg 1 each PO DAILY PRN 02/04/16 01/09/22 History [Claritin-D 12 Hour] FLUoxetine HCL [Sarafem] 40 mg PO QAM 07/24/21 01/09/22 History Sucralfate [Carafate] 1 gm PO BID #120 tablet 12/22/21 01/09/22 Rx Omeprazole [PriLOSEC] 40 mg PO BID 01/07/22 01/09/22 History Allergies Allergy/AdvReac Type Severity Reaction Status Date / Time Sulfa (Sulfonamide Allergy HIVES Verified 01/09/22 08:34 Antibiotics) codeine AdvReac Nausea & Verified 01/09/22 08:34 Vomiting hydrocodone bitartrate AdvReac Nausea & Verified 01/09/22 08:34 [From [place]] Vomiting povidone-iodine AdvReac Rash/Hives Verified 01/09/22 08:34 [From Betadine] soap [From Betadine] AdvReac Rash/Hives Verified 01/09/22 08:34
[2022-01-12 08:22] VITALS: RESP 16; TEMP 98.4
[2022-01-12] MEDS ORDERED: PROPOFOL 10 MG/ML 20 ML VIAL IV ONE (08:43)
[2022-01-12] MEDS ORDERED: LIDOCAINE 2% INJ 20 MG/ML (2 ML VIAL) ONE (08:43)
--- NOTE | 2022-01-12 09:10 | P.PCN ---
Date of Procedure: 01/12/22 Description of Procedure: PREOPERATIVE DIAGNOSIS: Dysphagia. Esophageal stenosis POSTOPERATIVE DIAGNOSIS: Dysphagia. Esophagea stenosis, lower esophagus OPERATION: Esophagogastrojejunoscopy with balloon dilatation from 10 to 18 mm pyloric balloon Esophagogastrojejunoscopy with cold forceps biopsy at esophageal stricture SURGEON: Yu Marrufo MD ANESTHESIA: MAC. INDICATIONS: The patient is a 66-year-old female who presents with a history of dysphagia due to recurrent esophageal stenosis. Benefits and risks of the procedure were described. Informed consent was obtained. DESCRIPTION: The patient was brought into the endoscopy suite and laid in the left lateral decubitus position. After a timeout was confirmed, the procedure was initiated. An Olympus gastroscope was passed along the posterior oropharynx down to the distal esophagus where the squamocolumnar junction was unremarkable. The gastric pouch was entered. A distal esophageal stenosis of 10 mm was found. The gastrojejunal anastomosis was within normal limits. A Elimi pyloric balloon dilator was placed through the scope. Final insufflation up to 18 mm was performed with a total of 2 minutes. The scope was advanced up to 60 cm from the incisors into the Marifer limb. The mucosa of the gastrojejunal anasto mosis was intact. No chronic gastrojejunal marginal ulcer was encountered. Mucosal tear was found along the esophageal dilation, less than 5 mm. The GI tract was desufflated. The patient tolerated the procedure well. FINDINGS: Esophageal stenosis at 37 cm from the incisors. Stricture of approximately 10 mm encountered. No chronic gastrojejunal ulceration encountered. Esophageal balloon dilatation to 10 to 18 mm using pyloric balloon RECOMMENDATIONS: Further recommendations pending pathology Continue omeprazole and Carafate Plan - Discharge Summary Discharge Rx Participant: No New Discharge Prescriptions: Continue Loratadine-Pseudoeph 5-120 mg [Claritin-D 12 Hour] 1 each PO DAILY PRN PRN Reason: allergies FLUoxetine HCL [Sarafem] 40 mg PO QAM Omeprazole [PriLOSEC] 40 mg PO BID Sucralfate [Carafate] 1 gm PO BID #120 tablet Discharge Medication List Loratadine-Pseudoeph 5-120 mg [Claritin-D 12 Hour] 1 each PO DAILY PRN 02/05/16 [History] FLUoxetine HCL [Sarafem] 40 mg PO QAM 07/24/21 [History] Sucralfate [Carafate] 1 gm PO BID #120 tablet 12/22/21 [Rx] Omeprazole [PriLOSEC] 40 mg PO BID 01/07/22 [History] [facility] [facility] [place] [place] [place] Patient Instructions/Handouts: Esophageal Dilation (DC), Complete Blenderized Diet (DC) Activity/Diet/Wound Care/Special Instructions: NO SOLID FOODS Discharge Disposition: HOME SELF-CARE
--- NOTE | 2022-01-12 09:27 | XR ---
EXAMINATION TYPE: XR chest 1V portable DATE OF EXAM: 01/12/2022 COMPARISON: Chest x-ray December 01, 2021 HISTORY: EGD with esophageal dilatation. TECHNIQUE: Single AP portable frontal upright view of the chest is obtained. FINDINGS: Chronic parenchymal changes bilaterally with elevated left hemidiaphragm is redemonstrated. There is no suspicious new focal air space opacity, pleural effusion, or pneumothorax seen bilatera lly. Persistent cardiomegaly. The osseous structures remain demineralized. No pneumomediastinum. IMPRESSION: Cardiomegaly without acute pulmonary process. No significant change from prior. No new p neumothorax or pneumomediastinum.
[2022-01-12 09:29] VITALS: BP 125/79; PULSE 63
--- NOTE | 2022-01-12 09:33 | P.PN ---
Progress Note - Text Progress Note Date: 01/12/22 Chest x-ray review without perforation. May discharge home. Additional diagnostic studies including esophagram to include upper GI
== END 2022-01-12 10:02 | disposition home or self-care (01) ==
LOC: ORWHC2ENDO 07:41
PROVIDERS: ATTEND Surgery Plastic and Reconstructive Surgery
DX: K22.2 Esophageal obstruction (principal); K29.50 Unspecified chronic gastritis without bleeding; K57.10 Diverticulosis of small intestine without perforation or abscess without bleeding; K21.9 Gastro-esophageal reflux disease without esophagitis; M19.90 Unspecified osteoarthritis, unspecified site; Z87.19 Personal history of other diseases of the digestive system; G47.33 Obstructive sleep apnea (adult) (pediatric); Z86.16 Personal history of COVID-19; Z98.84 Bariatric surgery status; Z98.890 Other specified postprocedural states; Z87.891 Personal history of nicotine dependence; Z80.0 Family history of malignant neoplasm of digestive organs; Z82.49 Family history of ischemic heart disease and other diseases of the circulatory system; Z79.899 Other long term (current) drug therapy; Z88.5 Allergy status to narcotic agent; Z88.2 Allergy status to sulfonamides; Z88.8 Allergy status to other drugs, medicaments and biological substances; Z91.048 Other nonmedicinal substance allergy status
CPT/HCPCS: 88305; 88342; 71045; 43239; 43249; J2704; J2001; C1727

== ENCOUNTER → 2022-02-06 | Outpatient (CLI) | payer MEDICARE ==
--- NOTE | 2022-02-06 09:51 | FL ---
ESOPHOGRAM. HISTORY: Dysphagia Esophagram was performed per the single contrast technique. The patient swallowed barium without dif ficulty or delay. Esophageal peristalsis and motility appear to be within normal limits. There is no evidence for filling defect, mass or diverticulum. There is a small fixed hiatal hernia noted. Noted are changes of prior Marifer-en-Y gastric bypass. No evidence for obstruction. IMPRESSION: There is a small fixed hiatal hernia noted.
== END | disposition home or self-care (01) ==
LOC: RADUSWWP 09:07
PROVIDERS: ATTEND Surgery Plastic and Reconstructive Surgery
DX: K44.9 Diaphragmatic hernia without obstruction or gangrene (principal)
CPT/HCPCS: 74220

== ENCOUNTER 2022-11-28 22:44 | Emergency (ER) | payer MEDICARE ==
[2022-11-28 22:55] VITALS: RESP 18; TEMP 97.9
[2022-11-28] MEDS ORDERED: LIDOCAINE 1%-EPI 1:100,000 20 ML VIAL SQ STA (23:07)
--- NOTE | 2022-11-28 23:12 | ED ---
General Adult HPI - General Chief complaint: Fall Stated complaint: Fall,Head Injury Time Seen by Provider: 11/28/22 22:56 Source: patient Mode of arrival: wheelchair Limitations: no limitations - History of Present Illness Initial comments: Dictation was produced using Headroom dictation software. please excuse any grammatical, word or spelling errors. Chief Complaint: 67-year-old female presents to the emergency Department with fall and eyebrow laceration History of Present Illness: 67-year-old female she was making Easter baskets for her grandsons when she stepped on one other toys. She slipped and struck her head on the corner of the window causing a laceration. She states that she also bumped her lip and landed on her knees. Patient able to ambulate. She states that she wishes to be sore to her knees tomorrow. Patient does not take any anticoagulation medications patient did have some wine prior to hurting herself. The ROS documented in this emergency department record has been reviewed and confirmed by me. Those systems with pertinent positive or negative responses have been documented in the HPI. All other systems are other negative and/or noncontributory. PHYSICAL EXAM: General Impression: Alert and oriented x3, not in acute distress HEENT: 2 cm laceration over the lateral eyebrow, extra-ocular movements intact, pupils equal and reactive to light bilaterally, mucous membranes moist. Cardiovascular: Heart regular rate and rhythm Chest: Able to complete full sentences, no retractions, no tachypnea Abdomen: abdomen soft, non-tender, non-distended, no organomegaly Musculoskeletal: Pulses present and equal in all extremities, all joints intact, no peripheral edema Motor: no focal deficits noted Neurological: CN II-XII grossly intact, no focal motor or sensory deficits noted Skin: Intact with no visualized rashes Psych: Normal affect and mood ED course: 67-year-old female presents to emergency room for head injury. She had a mechanical fall. Nursing notes and chart review was performed - Related Data Home Medications Medication Instructions Recorded Confirmed FLUoxetine HCL [Sarafem] 40 mg PO QAM 07/24/21 01/21/22 Allergies Allergy/AdvReac Type Severity Reaction Status Date / Time Sulfa (Sulfonamide Allergy HIVES Verified 11/28/22 22:48 Antibiotics) codeine AdvReac Nausea & Verified 11/28/22 22:48 Vomiting hydrocodone bitartrate AdvReac Nausea & Verified 11/28/22 22:48 [From [place]] Vomiting povidone-iodine AdvReac Rash/Hives Verified 11/28/22 22:48 [From Betadine] soap [From Betadine] AdvReac Rash/Hives Verified 11/28/22 22:48 Review of Systems ROS Statement: Those systems with pertinent positive or pertinent negative responses have been documented in the HPI. ROS Other: All systems not noted in ROS Statement are negative. Past Medical History Past Medical History: GERD/Reflux, Osteoarthritis (OA), Sleep Apnea/CPAP/BIPAP, Syncope Additional Past Medical History / Comment(s): diverticulitis, DOES NOT USE HER CPAP. History of Any Multi-Drug Resistant Organisms: None Reported Past Surgical History: Bariatric Surgery, Cholecystectomy, Hernia Repair Additional Past Surgical History / Comment(s): COLPOSCOPY. EGD/Colonoscopy, D&C. 2017. Gastric bypass , repair of hiatal hernia sinus reconstruction , EGD WITH DILATATION 12/01/21 Past Anesthesia/Blood Transfusion Reactions: No Reported Reaction Past Psychological History: No Psychological Hx Reported Smoking Status: Former smoker Past Alcohol Use History: Occasional Past Drug Use History: None Reported - Past Family History Mother Family Medical History: Cancer Additional Family Medical History / Comment(s): pancreatic cancer Father Family Medical History: Congestive Heart Failure (CHF), Myocardial Infarction ([place]) General Exam Limitations: no limitations Course Vital Signs 11/28/22 22:50 Temperature 97.9 F Pulse Rate 82 Respiratory 18 Rate Blood Pressure 156/84 O2 Sat by Pulse 98 Oximetry Procedures - Laceration Laceration #1 Consent Obtained: verbal consent Indication: laceration Site: face Description: linear Depth: simple, single layer Anesthetic Used: lidocaine 1% Anesthesia Technique: local infiltration Type of Sutures: nylon Size of Sutures: 6-0 Technique: simple, interrupted Patient Tolerated Procedure: well Additional Comments: 3 stitches Medical Decision Making - Medical Decision Making Was pt. sent in by a medical professional or institution (, PA, MAKING MACHINE CATCHER, urgent care, hospital, or usp...) When possible be specific @ -No Did you speak to anyone other than the patient for history (EMS, parent, family, police, friend...)? What history was obtained from this source @ -No Did you review nursing and triage notes (agree or disagree)? Why? @ -I reviewed and agree with nursing and triage notes Were old charts reviewed (outside hosp., previous admission, EMS record, old EKG, old radiological studies, urgent care reports/EKG's, usp records)? Report findings @ -No old charts were reviewed Differential Diagnosis (chest pain, altered mental status, abdominal pain women, abdominal pain men, vaginal bleeding, musculoskeletal, weakness, fever, dyspnea, syncope, headache, dizziness, GI bleed, back pain, seizure, CVA, palpatations, mental health)? @ -not applicable EKG interpreted by me (3pts min.). @ -None done X-rays interpreted by me (1pt min.). @ -None done CT interpreted by me (1pt min.). @ -No acute traumatic processes U/S interpreted by me (1pt. min.). @ -None done What testing was considered but not performed or refused? (CT, X-rays, U/S, labs)? Why? @ -None What meds were considered but not given or refused? Why? @ -None Did you discuss the management of the patient with other professionals (professionals i.e. , PA, MAKING MACHINE CATCHER, lab, RT, psych nurse, health care social worker, recyclable materials sorter, teacher, security vehicle patrol officer, patient case manager)? Give summary @ -No Was smoking cessation discussed for >3mins.? @ -No Was critical care preformed (if so, how long)? @ -No Were there social determinants of health that impacted care today? How? (Homelessness, low income, unemployed, alcoholism, drug addiction, transportation, low edu. Level, literacy, decrease access to med. care, [facility], rehab)? @ -No Was there de-escalation of care discussed even if they declined (Discuss DNR or withdrawal of care, Hospice)? DNR status @ -No What co-morbidities impacted this encounter? (DM, HTN, Smoking, COPD, CAD, Cancer, CVA, ARF, Chemo, Hep., AIDS, mental health diagnosis, sleep apnea, morbid obesity)? @ -None Was patient admitted / discharged? Hospital course, mention meds given and route, prescriptions, significant lab abnormalities, going to OR and other pertinent info. @ -67 year old female presents to the emergency department after fall and facial laceration. Laceration chin.. Please see procedure note. CT scans unremarkable. Patient will be discharged. Undiagnosed new problem with uncertain prognosis? @ -No Drug Therapy requiring intensive monitoring for toxicity (Heparin, Nitro, Insulin, Cardizem)? @ -No Were any procedures done? @ -See laceration note Diagnosis/symptom? Acute, or Chronic, or Acute on Chronic? Uncomplicated (without systemic symptoms) or Complicated (systemic symptoms)? @ -1. Fall, 2. Facial laceration Side effects of treatment? @ -No Exacerbation, Progression, or Severe Exacerbation? @ -No Poses a threat to life or bodily function? How? (Chest pain, [place], CA, pneumonia, PE, COPD, DKA, ARF, appy, cholecystitis, CVA, Diverticulitis, Homicidal, Suicidal, threat to staff... and all critical care pts) @ -No Disposition Clinical Impression: Fall, Facial laceration Disposition: HOME SELF-CARE Condition: Fair Instructions (If sedation given, give patient instructions): Care For Your Stitches (DC) Additional Instructions: suture removal in 5 days Is patient prescribed a controlled substance at d/c from ED?: No Referrals: Mynor Chakraborty MD [Primary Care Provider] - 1-2 days Time of Disposition: 23:30
--- NOTE | 2022-11-28 23:43 | CT ---
EXAMINATION TYPE: CT brain asya sylvester DATE OF EXAM: 11/28/2022 COMPARISON: 2016 HISTORY: Fall pain CT DLP: 1446.6 mGycm Automated exposure control for dose reduction was used. TECHNIQUE: CT scan of the head and cervical spine are performed without contrast. FINDINGS: There is no acute intracranial hemorrhage, mass effect, or midline shift identified. The ventricles and sulci are consistent with the patient's age. The globes are symmetric. There is mucop eriosteal thickening involving the right maxillary sinus and changes of chronic sinusitis. Cortical t hickening along the inferior margin of the right maxillary sinus. Assessment spinal canal limited by resolution artifact. Multilevel degenerative disc disease and facet arthropathy. No acute fracture. Odontoid intact. Scatt ered changes of shotty adenopathy throughout the compartments of the soft tissues of neck. Multinodular thyroid changes. IMPRESSION: 1. There is no acute fracture or dislocation evident in the cervical spine. Multilevel hypertrophic a nd degenerative changes with multilevel facet arthropathy. 2. No acute intracranial hemorrhage, mass effect, or midline shift is seen. 3. Multinodular thyroid changes
[2022-11-29 00:09] VITALS: BP 150/84; PULSE 80
== END 2022-11-29 00:14 | disposition home or self-care (01) ==
LOC: EC 22:44
DX: S01.81XA Laceration without foreign body of other part of head, initial encounter (principal); E04.2 Nontoxic multinodular goiter; G47.30 Sleep apnea, unspecified; Z87.891 Personal history of nicotine dependence; Z88.2 Allergy status to sulfonamides; Z88.5 Allergy status to narcotic agent; Z88.6 Allergy status to analgesic agent; Z88.8 Allergy status to other drugs, medicaments and biological substances; Z88.1 Allergy status to other antibiotic agents; W01.0XXA Fall on same level from slipping, tripping and stumbling without subsequent striking against object, initial encounter
CPT/HCPCS: 12011; 70450; 72125; 99284

== ENCOUNTER → 2023-05-27 | Outpatient (CLI) | payer MEDICARE ==
--- NOTE | 2023-05-28 09:56 | CA ---
Transthoracic Echo Report Name: Archana Jones Age: 67 Gender: F : 1955 Exam Date: 05/27/2023 17:04 Exam Location: [facility] Ht (in): 57 Wt (lb): 180 Ordering Physician: Mynor Chakraborty MD Attending/Referring Phys: [employer] Research Technician Peyton Garcia RDCS Procedure CPT: Indications: R01.1 Murmur Cardiac Hx: Technical Quality: Fair Contrast 1: Total Dose (mL): Contrast 2: Total Dose (mL): MEASUREMENTS (Male / Female) Normal Values 2D ECHO LV Diastolic Diameter PLAX 3.9 cm 4.2 - 5.9 / 3.9 - 5.3 cm LV Systolic Diameter PLAX 2.6 cm IVS Diastolic Thickness 1.5 cm 0.6 - 1.0 / 0.6 - 0.9 cm LVPW Diastolic Thickness 1.4 cm 0.6 - 1.0 / 0.6 - 0.9 cm LV Relative Wall Thickness 0.8 RV Internal Dim ED PLAX 2.6 cm LA Volume 100.0 cm??? 18 - 58 / 22 - 52 cm??? LA Volume Index 53.7 cm???/m??? 16 - 28 cm???/m??? M-MODE Aortic Root Diameter MM 3.3 cm LA Systolic Diameter MM 3.3 cm LA Ao Ratio MM 1.0 AV Cusp Separation MM 2.1 cm DOPPLER AV Peak Velocity 181.0 cm/s AV Peak Gradient 13.1 mmHg AV Mean Velocity 124.7 cm/s AV Mean Gradient 6.7 mmHg AV Velocity Time Integral 42.0 cm LVOT Peak Velocity 136.3 cm/s LVOT Peak Gradient 7.4 mmHg LVOT Velocity Time Integral 32.9 cm MV Area PHT 2.2 cm??? Mitral E Point Velocity 96.6 cm/s Mitral A Point Velocity 93.9 cm/s Mitral E to A Ratio 1.0 MV Deceleration Time 349.8 ms MV E' Velocity 7.6 cm/s Mitral E to MV E' Ratio 12.6 TR Peak Velocity 269.4 cm/s TR Peak Gradient 29.0 mmHg Right Ventricular Systolic Press 33.1 mmHg FINDINGS Left Ventricle Moderately increased left ventricular wall thickness. Normal left ventricular systolic function with no obvious regional wall motion abnormalities. Left ventricular cavity size normal. Left ventricular ejection fraction is estimated at 55-60 %. Right Ventricle Normal right ventricular size and function. Right Atrium Normal right atrial size. Left Atrium Severely increased left atrial volume. Mildly increased left atrial area. Mitral Valve Structurally normal mitral valve. Mild mitral annular calcification. Mild-to- moderate mitral regurgitation. Aortic Valve Trileaflet aortic valve. No aortic stenosis. Trace aortic regurgitation. Tricuspid Valve Structurally normal tricuspid valve. Mild tricuspid regurgitation. Pulmonic Valve Trace pulmonic regurgitation. Pericardium No pericardial effusion. Aorta Normal size aortic root and proximal ascending aorta. CONCLUSIONS Normal LV function Mild to moderate mitral regurgitation Previewed by: Dr. Jeromy Pate MD (Electronically Signed) Final Date: 28 May 2023 09:56
== END | disposition home or self-care (01) ==
LOC: RADECHMAIN 16:58
PROVIDERS: ATTEND Internal Medicine
DX: I35.0 Nonrheumatic aortic (valve) stenosis (principal); R01.1 Cardiac murmur, unspecified
CPT/HCPCS: 93306

== ENCOUNTER → 2023-05-31 | Outpatient (CLI) | payer MEDICARE ==
--- NOTE | 2023-05-31 09:39 | MM ---
Reason for Exam: Screening (asymptomatic). Last mammogram was performed 2 year(s) and 5 month(s) ago. Patient History: Menarche at age 11. First Full-Term at age 24. Postmenopausal. Risk Values: Mariposa 5 year model risk: 1.6%. NCI Lifetime model risk: 5.9%. Prior Study Comparison: 01/02/2021 Bilateral Screening Mammogram, [facility]. Tissue Density: There are scattered fibroglandular densities. Findings: Analyzed By CAD. There is no suspicious group of microcalcifications or new suspicious mass in either breast. Overall Assessment: Negative, BI-RAD 1 Management: Screening Mammogram of both breasts in 1 year. A clinical breast exam by your physician is recommended on an annual basis and results should be correlated with mammographic findings. Note on Mariposa scores and lifetime risk: 1. A Mariposa score greater than 3% is considered moderate risk. If this is the case, consider specialist referral to assess eligibility for a risk reducing agent. If overall lifetime risk for the development of breast cancer is 20% or higher, the patient may qualify for future screening with alternating mammogram and breast MRI. Electronically signed and approved by: Cabrera Nieves D.O.
[2023-05-31 15:33] LABS: Basophils # (A) 0.05 X 10*3/uL (0.00-0.10); Basophils % (A) 0.7 %; Eosinophils # (A) 0.09 X 10*3/uL (0.04-0.35); Eosinophils % (A) 1.3 %; HCT 39.2 % (37.2-46.3); HGB 12.7 d/dL (12.0-15.0); Lymphocytes # (A) 0.94 X 10*3/uL (0.90-5.00); Lymphocytes % (A) 13.4 %; MCH 31.3 pg (27.0-32.0); MCHC 32.4 d/dL (32.0-37.0); MCV 96.6 FL (80.0-97.0); Mean Platelet Volume 10.8 FL (9.5-12.2); Monocytes # (A) 0.39 X 10*3/uL (0.20-1.00); Monocytes % (A) 5.6 %; NRBC Per 100 WBC 0 X 10*3/uL (0.00-0.01); Neutrophils # (A) 5.52 X 10*3/uL (1.80-7.70); Neutrophils % (A) 78.7 %; Platelet Count 261 X 10*3/uL (140-440); RBC 4.06 X 10*6/uL (4.10-5.20); RDW 13.8 % (11.5-14.5); WBC 7.01 X 10*3/uL (4.50-10.00)
[2023-05-31 16:17] LABS: % Iron Saturation 18.24 (12.00-45.00); ALT 14 U/L (8-44); AST 18 U/L (13-35); Albumin 4.2 d/dL (3.8-4.9); Albumin/Globulin Ratio 1.45 Ratio (1.60-3.17); Alkaline Phosphatase 97 U/L (41-126); BUN/Creat Ratio 25.29 Ratio (12.00-20.00); Blood Urea Nitrogen 17.7 mg/dL (9.0-27.0); Calcium 9.6 mg/dL (8.7-10.3); Carbon Dioxide 25.3 mmol/L (21.6-31.8); Chloride 104 mmol/L (96-109); Chol/HDL Ratio 1.85 Ratio; Ferritin 21.1 ng/mL (10.0-291.0); Globulin 2.9 d/dL (1.6-3.3); Glucose 91 mg/dL (70-110); Iron 87 UG/DL (50-170); LDL Cholesterol,Calculated 85.4 mg/dL (0.0-131.0); Potassium 4.5 mmol/L (3.5-5.5); Sodium 140 mmol/L (135-145); Total Bilirubin 0.4 mg/dL (0.3-1.2); Total Iron Binding Capacity 477 UG/DL (228-460); Total Protein 7.1 d/dL (6.2-8.2); VLDL Calculation 14.64 mg/dL (5.00-40.00)
== END | disposition home or self-care (01) ==
LOC: RADMAMWWP 08:36
PROVIDERS: ATTEND Internal Medicine
DX: Z12.31 Encounter for screening mammogram for malignant neoplasm of breast (principal); F32.1 Major depressive disorder, single episode, moderate; Z11.59 Encounter for screening for other viral diseases; Z98.84 Bariatric surgery status; Z78.0 Asymptomatic menopausal state
CPT/HCPCS: 77063; 77067; 80053; 80061; 82306; 82607; 82728; 82746; 83540; 83550; 83735; 85025; 86803

== ENCOUNTER → 2024-05-17 | Outpatient (CLI) | payer MEDICARE ==
[2024-05-17 16:17] VITALS: BP 157/82; PULSE 61; RESP 16; TEMP 98; BMI 29.7
--- NOTE | 2024-05-17 16:29 | P.PN ---
Subjective Progress Note Date: 05/17/24 She is eating well. She went [facility]. SHe is doing well. She is eating. She just came back yesterday. She flies regularly. Panniculectomy packet. Needs pictures. She has pets and risk of infection reviewed. Objective - Vital Signs Vital signs: Vital Signs Temp 98.0 F 05/17/24 16:11 Pulse 61 05/17/24 16:11 Resp 16 05/17/24 16:11 BP 157/82 05/17/24 16:11 Pulse Ox FiO2 Intake & Output 05/16/24 05/17/24 05/17/24 18:59 06:59 18:59 Weight 86.636 kg
== END ==
LOC: BARWHC3 15:36
PROVIDERS: ATTEND Surgery Plastic and Reconstructive Surgery
DX: E66.01 Morbid (severe) obesity due to excess calories (principal); Z88.2 Allergy status to sulfonamides; Z88.5 Allergy status to narcotic agent; Z88.8 Allergy status to other drugs, medicaments and biological substances; Z68.29 Body mass index [BMI] 29.0-29.9, adult
CPT/HCPCS: 99211

== ENCOUNTER → 2024-06-07 | Outpatient (CLI) | payer MEDICARE ==
--- NOTE | 2024-06-07 15:46 | US ---
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 No hx of DVT. Not on blood thinners. TECHNIQUE: The lower extremity deep venous system is examined utilizing real time linear array sonog rob with graded compression, color doppler sonography, and spectral doppler. SIDE PERFORMED: Bilateral FINDINGS: VESSELS IMAGED: Common Femoral Vein Deep Femoral Vein Greater Saphenous Vein * Femoral Vein Popliteal Vein Small Saphenous Vein * Proximal Calf Veins (* superficial vessels) Right Leg: Negative for DVT Left Leg: Negative for DVT Grayscale, color doppler, spectral doppler imaging performed of the deep veins of the lower extremiti es. IMPRESSION: No ultrasound evidence for deep venous thrombosis of either lower extremity. [facility], , 06/07/2024 3:44 PM
== END | disposition home or self-care (01) ==
LOC: RADUSWWP 15:02
PROVIDERS: ATTEND Internal Medicine
DX: I83.899 Varicose veins of unspecified lower extremity with other complications (principal)
CPT/HCPCS: 93970

== ENCOUNTER → 2024-06-08 | Outpatient (CLI) | payer MEDICARE ==
--- NOTE | 2024-06-09 08:25 | MM ---
Reason for Exam: Screening (asymptomatic). Last screening mammogram was performed 12 month(s) ago. Patient History: Menarche at age 11. First Full-Term at age 24. Postmenopausal. Sister had breast cancer, age 62. Risk Values: Mariposa 5 year model risk: 3.6%. NCI Lifetime model risk: 11.3%. Prior Study Comparison: 01/02/2021 Bilateral Screening Mammogram, [facility]. 05/31/2023 Bilateral MG 3D screening mammo w/cad, [facility]. Tissue Density: The breasts are almost entirely fatty. Findings: Analyzed By CAD. Right breast: There is no suspicious group of microcalcifications or new suspicious mass. Left breast: There is no suspicious group of microcalcifications or new suspicious mass. Overall Assessment: Negative, BI-RAD 1 Management: Screening Mammogram of both breasts in [address] [facility] will attempt to contact patient to return for supplemental views and ultrasound if indicated. Patient should continue monthly self-breast exams. A clinical breast exam by your physician is recommended on an annual basis. This exam should not preclude additional follow-up of suspicious palpable abnormalities. Note on Mariposa scores and lifetime risk: 1. A Mariposa score greater than 3% is considered moderate risk. If this is the case, consider specialist referral to assess eligibility for a risk reducing agent. 2. If overall lifetime risk for the development of breast cancer is 20% or higher, the patient may qualify for future screening with alternating mammogram and breast MRI. [facility], , 06/09/2024 8:22 AM. Electronically signed and approved by: Christopher Long DO
--- NOTE | 2024-06-09 12:46 | BD ---
EXAMINATION TYPE: Axial Bone Density DATE OF EXAM: 06/08/2024 CLINICAL HISTORY: 69 years old Female. ICD-10 CODE: M85.88 Disorder of bone Height: 67 Weight: 190 FRAX RISK QUESTIONS: Alcohol (3 or more units per day): no Family History (Parent hip fracture): no Glucocorticoids (More than 3mos): no (Ex: prednisone, prednisolone, methylprednisolone, dexamethasone, and hydrocortisone). History of Fracture in Adulthood: yes Secondary Osteoporosis: 1. Type 1 Diabetes: no 2. Hyperthyroidism: no 3. Menopause before 45: yes 4. Malnutrition: no 5. Chronic liver disease: no Rheumatoid Arthritis: no Current Tobacco Use: no RISK FACTORS HISTORY OF: Surgery to Spine/Hip(right/left)/Wrist (right/left): no EXAM MEASUREMENTS: Bone mineral densitometry was performed using the [employer] System. Bone mineral density as measured about the Lumbar spine is: ----- L1-L4(G/cm2): 1.175 T Score Values are as follows: ----- L1: 0.4 ----- L2: -0.6 ----- L3: 0.0 ----- L4: -0.2 ----- L1-L4: 0.0 Z Score Values are as follows: ----- L1: 1.4 ----- L2: 0.3 ----- L3: 1.0 ----- L4: 0.7 ----- L1-L4: 0.9 Bone mineral density : baseline Bone mineral density about the R hip (g/cm2): 0.731 Bone mineral density about the L hip (g/cm2): 0.741 T Score values are as follows: -----R Neck: -2.5 -----L Neck: -2.1 -----R Total: -2.2 -----L Total: -2.1 Z Score values are as follows: -----R Neck: -1.4 -----L Neck: -1.0 -----R Total: -1.3 -----L Total: -1.3 Bone mineral density : baseline FRAX%s: The graph provided illustrates a 22.1% chance for a major osteoporotic fx and a 5.1% chance f or the hips probability for fx in 10 years time. IMPRESSION: Osteoporosis (T Score less than -2.5). There is increased fracture risk and therapy is usually indicated based on age. Re-Screen 1-2 years. NOTE: T-SCORE=SD OF THE YOUNG ADULT MEAN. [facility], , 06/09/2024 12:44 PM
== END | disposition home or self-care (01) ==
LOC: RADMAMWWP 15:19
PROVIDERS: ATTEND Internal Medicine
CPT/HCPCS: 77063; 77067; 77080

== ENCOUNTER → 2024-08-09 | Outpatient (CLI) | payer MEDICARE ==
[2024-08-09 15:49] VITALS: BP 158/82; PULSE 67; RESP 16; TEMP 98.1; BMI 29.8
--- NOTE | 2024-08-09 16:36 | P.BASOAP ---
Subjective Progress Note Date: 08/09/24 SHe needs EGD and colon prior to panniculectomy. She has colon polyps; She is around pets. Benefits and risks of panniculectomy. Objective - Vital Signs Vital signs: Vital Signs Temp 98.1 F 08/09/24 15:43 Pulse 67 08/09/24 15:43 Resp 16 08/09/24 15:43 BP 158/82 08/09/24 15:43 Pulse Ox FiO2 Intake & Output 08/08/24 08/09/24 08/09/24 18:59 06:59 18:59 Weight 87.09 kg Assessment/Plan Plan: Date: 08/09/24 Initial Weight: 122.924 kg Initial BMI: 42.1 Current Weight: 87.09 kg Current BMI: 29.8 Type of Surgery: Total Volume in Band: Previous Volume: Volume Removed: Volume Added: Band Size:
== END ==
LOC: BARWHC3 14:54
PROVIDERS: ATTEND Surgery Plastic and Reconstructive Surgery
DX: E66.01 Morbid (severe) obesity due to excess calories (principal); Z88.2 Allergy status to sulfonamides; Z88.5 Allergy status to narcotic agent; Z88.8 Allergy status to other drugs, medicaments and biological substances; Z68.28 Body mass index [BMI] 28.0-28.9, adult; Z98.890 Other specified postprocedural states
CPT/HCPCS: 99211

== ENCOUNTER → 2024-08-17 | Outpatient (CLI) | payer MEDICARE ==
[2024-08-17 14:24] LABS: INR 0.9 (<1.2); Partial Thromboplastin Time 21.9 sec (22.0-30.0); Prothrombin Time 10.6 sec (10.0-12.5)
[2024-08-17 16:04] LABS: HCT 39.8 % (37.2-46.3); HGB 12.9 g/dL (12.0-15.0); MCH 31.2 pg (27.0-32.0); MCHC 32.4 g/dL (32.0-37.0); MCV 96.1 FL (80.0-97.0); Mean Platelet Volume 10.1 FL (9.5-12.2); NRBC Per 100 WBC 0 X 10*3/uL (0.00-0.01); Platelet Count 265 X 10*3/uL (140-440); RBC 4.14 X 10*6/uL (4.10-5.20); RDW 13.2 % (11.5-14.5); WBC 7.56 X 10*3/uL (4.50-10.00)
[2024-08-17 16:34] LABS: % Iron Saturation 28.16 (12.00-45.00); BUN/Creat Ratio 26.75 Ratio (12.00-20.00); Blood Urea Nitrogen 21.4 mg/dL (9.0-27.0); Chloride 102 mmol/L (96-109); Chol/HDL Ratio 1.59 Ratio; Glucose 104 mg/dL (70-110); Iron 127 UG/DL (50-170); LDL Cholesterol,Calculated 66.3 mg/dL (0.0-131.0); Magnesium 1.7 mg/dL (1.5-2.4); Phosphorus 3.6 mg/dL (2.4-5.1); Potassium 4.6 mmol/L (3.5-5.5); Sodium 137 mmol/L (135-145); Total Iron Binding Capacity 451 UG/DL (228-460); VLDL Calculation 11.74 mg/dL (5.00-40.00)
[2024-08-17 16:35] LABS: ALT 16 U/L (8-44); AST 21 U/L (13-35); Albumin 4.3 g/dL (3.8-4.9); Albumin/Globulin Ratio 1.43 Ratio (1.60-3.17); Alkaline Phosphatase 105 U/L (41-126); Calcium 9.5 mg/dL (8.7-10.3); Ferritin 33.4 ng/mL (10.0-291.0); Total Bilirubin 0.6 mg/dL (0.3-1.2); Total Protein 7.3 g/dL (6.2-8.2)
[2024-08-18 13:28] LABS: Zinc, Serum 61 ug/dL (60-130)
== END ==
LOC: LABWHC1 12:34
PROVIDERS: ATTEND Surgery Plastic and Reconstructive Surgery
DX: D50.8 Other iron deficiency anemias (principal); D50.9 Iron deficiency anemia, unspecified; K61.2 Anorectal abscess; E44.0 Moderate protein-calorie malnutrition; E44.1 Mild protein-calorie malnutrition; E45 Retarded development following protein-calorie malnutrition; E46 Unspecified protein-calorie malnutrition; E55.9 Vitamin D deficiency, unspecified; K74.1 Hepatic sclerosis; N19 Unspecified kidney failure; T56.894A Toxic effect of other metals, undetermined, initial encounter; K50.90 Crohn's disease, unspecified, without complications
CPT/HCPCS: 36415; 80053; 80061; 82306; 82525; 82607; 82728; 82746; 83036; 83540; 83550; 83735; 83970; 84100; 84255; 84425; 84443; 84590; 84630; 85027; 85610; 85730

== ENCOUNTER 2024-08-23 09:12 | Observation (INO) | payer MEDICARE ==
--- NOTE | 2024-08-23 09:25 | ED ---
Chest Pain HPI - General Chief Complaint: Chest Pain Stated Complaint: Chest pain Time Seen by Provider: 08/23/24 09:19 Source: patient, EMS, RN notes reviewed Mode of arrival: EMS Limitations: no limitations - History of Present Illness Initial Comments: 69-year-old female presents emergency department via EMS with chief complaint of chest pain. Patient states started this morning. She states she feels like someone sitting on her chest and radiate up into her neck and she felt very nauseated. Patient did receive aspirin by EMS symptoms are improving but still present. Patient states recently she found out she had a cardiac murmur with valve issues, has mild hyperlipidemia and hypertension on current meds. Patient had no prior cardiac stents she denies any leg pain leg swelling no history of DVT PE or CHF. - Related Data Home Medications Medication Instructions Recorded Confirmed FLUoxetine HCL [Sarafem] 40 mg PO QAM 07/24/21 08/09/24 Losartan [Cozaar] 25 mg PO DAILY 02/02/24 08/09/24 Omeprazole [PriLOSEC] 20 mg PO DAILY 02/02/24 08/09/24 Rosuvastatin Calcium [Crestor] 5 mg PO DAILY 02/02/24 08/09/24 Loratadine-Pseudoeph 5-120 mg 1 tab PO DAILY PRN 05/17/24 08/09/24 [Claritin-D 12 Hour] Allergies Allergy/AdvReac Type Severity Reaction Status Date / Time Sulfa (Sulfonamide Allergy HIVES Verified 08/23/24 09:19 Antibiotics) codeine AdvReac Nausea & Verified 08/23/24 09:19 Vomiting hydrocodone bitartrate AdvReac Nausea & Verified 08/23/24 09:19 [From [place]] Vomiting povidone-iodine AdvReac Rash/Hives Verified 08/23/24 09:19 [From Betadine] soap [From Betadine] AdvReac Rash/Hives Verified 08/23/24 09:19 Review of Systems ROS Statement: Those systems with pertinent positive or pertinent negative responses have been documented in the HPI. ROS Other: All systems not noted in ROS Statement are negative. EKG Findings - EKG Comments: EKG Findings:: EKG performed at 9: 30 sinus rhythm rate of 70 W[place] 154 QRS 98 QT/QTc 4 6/427 inverted T wave aVL no ST elevation depression noted. - EKG Results: EKG: interpreted by SURESH Past Medical History Past Medical History: GERD/Reflux, Osteoarthritis (OA), Sleep Apnea/CPAP/BIPAP, Syncope Additional Past Medical History / Comment(s): diverticulitis, cpap use History of Any Multi-Drug Resistant Organisms: None Reported Past Surgical History: Bariatric Surgery, Cholecystectomy, Hernia Repair Additional Past Surgical History / Comment(s): COLPOSCOPY. EGD/Colonoscopy, D&C. 2016. Gastric bypass , repair of hiatal hernia sinus reconstruction -, EGD WITH DILATATION 12/01/21, bilateral cataract sx, eyelid lift Past Anesthesia/Blood Transfusion Reactions: No Reported Reaction Past Psychological History: No Psychological Hx Reported Smoking Status: Former smoker Past Alcohol Use History: Occasional Past Drug Use History: None Reported - Past Family History Mother Family Medical History: Cancer Additional Family Medical History / Comment(s): pancreatic cancer Father Family Medical History: Congestive Heart Failure (CHF), Myocardial Infarction ([place]) General Exam Limitations: no limitations General appearance: alert, in no apparent distress, anxious Head exam: Present: atraumatic, normocephalic, normal inspection Eye exam: Present: normal appearance, PERRL, EOMI. Absent: scleral icterus, conjunctival injection, periorbital swelling ENT exam: Present: normal exam, normal oropharynx, mucous membranes moist Neck exam: Present: normal inspection, full ROM. Absent: tenderness, meningismus, lymphadenopathy Respiratory exam: Present: normal lung sounds bilaterally. Absent: respiratory distress, wheezes, rales, rhonchi, stridor Cardiovascular Exam: Present: regular rate, normal rhythm, normal heart sounds, systolic murmur. Absent: diastolic murmur, rubs, gallop, clicks GI/Abdominal exam: Present: soft, normal bowel sounds. Absent: distended, tenderness, guarding, rebound, rigid Extremities exam: Absent: pedal edema Course Vital Signs 08/23/24 08/23/24 08/23/24 09:19 09:46 10:45 Pulse Rate 77 70 73 Respiratory 18 16 16 Rate Blood Pressure 133/76 135/83 O2 Sat by Pulse 97 95 94 L Oximetry Chest Pain MDM - MDM Was pt. sent in by a medical professional or institution (, PA, INSPECTOR MATERIAL DISPOSITION, urgent care, hospital, or group home...) When possible be specific @ -No Did you speak to anyone other than the patient for history (EMS, parent, family, police, friend...)? What history was obtained from this source @ -No Did you review nursing and triage notes (agree or disagree)? Why? @ -I reviewed and agree with nursing and triage notes Were old charts reviewed (outside hosp., previous admission, EMS record, old EKG, old radiological studies, urgent care reports/EKG's, group home records)? Report findings @ -No old charts were reviewed Differential Diagnosis (chest pain, altered mental status, abdominal pain women, abdominal pain men, vaginal bleeding, weakness, fever, dyspnea, syncope, headache, dizziness, GI bleed, back pain, seizure, CVA, palpatations, mental health, musculoskeletal)? @ -Differential Chest Pain: Stable Angina, Unstable Angina, STEMI, NSTEMI Aortic Dissection, Pneumothorax, Musculoskeletal, Esophageal Spasm GERD, Cholecystitis, Pancreatitis, Zoster, this is not meant to be an all-inclusive list. EKG interpreted by me (3pts min.). @ -As above X-rays interpreted by me (1pt min.). @ -Chest x-ray shows cardiomegaly CT interpreted by me (1pt min.). @ -None done U/S interpreted by me (1pt. min.). @ -None done What testing was considered but not performed or refused? (CT, X-rays, U/S, labs)? Why? @ -None What meds were considered but not given or refused? Why? @ -None Did you discuss the management of the patient with other professionals (professionals i.e. , PA, INSPECTOR MATERIAL DISPOSITION, lab, RT, psych nurse, social insurance analyst, formulation chemist, teacher, security flex utility officer, special education case manager)? Give summary @ -Sound physician for admission Was smoking cessation discussed for >3mins.? @ -No Was critical care preformed (if so, how long)? @ -No Were there social determinants of health that impacted care today? How? (Homelessness, low income, unemployed, alcoholism, drug addiction, transportation, low edu. Level, literacy, decrease access to med. care, longterm, rehab)? @ -No Was there de-escalation of care discussed even if they declined (Discuss DNR or withdrawal of care, Hospice)? DNR status @ -No What co-morbidities impacted this encounter? (DM, HTN, Smoking, COPD, CAD, Cancer, CVA, ARF, Chemo, Hep., AIDS, mental health diagnosis, sleep apnea, morbid obesity)? @ -Hypertension hyperlipidemia Was patient admitted / discharged? Hospital course, mention meds given and route, prescriptions, significant lab abnormalities, going to OR and other pertinent info. @ -Admitted patient's initial troponin is 0.022 patient did have concerning ACS symptoms. Patient has multiple risk factors will be admitted for cardiac rule out repeat troponin patient did receive aspirin by EMS patient's pain has resolv ed no nitro was given. Undiagnosed new problem with uncertain prognosis? @ -No Drug Therapy requiring intensive monitoring for toxicity (Heparin, Nitro, Insulin, Cardizem)? @ -No Were any procedures done? @ -No Diagnosis/symptom? @ -Chest pain Acute, or Chronic, or Acute on Chronic? @ -Acute Uncomplicated (without systemic symptoms) or Complicated (systemic symptoms)? @ -Complicated Side effects of treatment? @ -No Exacerbation, Progression, or Severe Exacerbation? @ -No Poses a threat to life or bodily function? How? (Chest pain, [place], [place], pneumonia, PE, COPD, DKA, ARF, appy, cholecystitis, CVA, Diverticulitis, Homicidal, Suicidal, threat to staff... and all critical care pts) @ -Yes possible ACS, risk of cardiac function Disposition Clinical Impression: Chest pain Disposition: ADMITTED IP TO THIS HOSP Condition: Fair Referrals: Mynor Chakraborty DO [Primary Care Provider] - 1-2 days Time of Disposition: 11:29
--- NOTE | 2024-08-23 10:16 | XR ---
EXAMINATION TYPE: XR chest 2V DATE OF EXAM: 08/23/2024 10:04 AM COMPARISON: 01/12/2022 CLINICAL INDICATION: Female, 69 years old with history of Chest Pain, TECHNIQUE: XR chest 2V view(s) obtained. FINDINGS: The heart size is mildly prominent. The pulmonary vasculature is normal. The lungs are clear. IMPRESSION: 1. Mild cardiomegaly [facility], Workstation: [facility], 08/23/2024 10:14 AM
[2024-08-23 10:32] LABS: ALT 18 U/L (4-34); African American GFR (CKD) >90 (>60 ml/min/1.73 sqM); Anion Gap 9 mmol/L; Blood Urea Nitrogen 20 mg/dL (7-17); Calcium 9.4 mg/dL (8.4-10.2); Carbon Dioxide 23 mmol/L (22-30); Chloride 107 mmol/L (98-107); Glucose 87 mg/dL (74-99); Non-African American GFR(CKD) >90 (>60 ml/min/1.73 sqM); Sodium 139 mmol/L (137-145); Total Bilirubin 0.6 mg/dL (0.2-1.3)
[2024-08-23 10:38] LABS: Basophils % (A) 0 %; Eosinophils # (A) 0.1 k/uL (0-0.7); Eosinophils % (A) 1 %; HCT 37.8 % (34.0-46.0); HGB 12.8 gm/dL (11.4-16.0); Lymphocytes # (A) 0.9 k/uL (1.0-4.8); Lymphocytes % (A) 11 %; MCH 32.8 pg (25.0-35.0); MCHC 33.8 g/dL (31.0-37.0); MCV 97.2 fL (80.0-100.0); Mean Platelet Volume 8.1; Monocytes # (A) 0.3 k/uL (0-1.0); Monocytes % (A) 3 %; Neutrophils # (A) 6.7 k/uL (1.3-7.7); Neutrophils % (A) 84 %; Platelet Count 235 k/uL (150-450); RBC 3.89 m/uL (3.80-5.40); RDW 13.2 % (11.5-15.5); WBC 8.1 k/uL (3.8-10.6)
[2024-08-23 10:39] LABS: NT-Pro-B-Type Natriuretic Pept 76 pg/mL
[2024-08-23 10:45] LABS: AST 31 U/L (14-36); Albumin 4.3 g/dL (3.5-5.0); Magnesium 1.7 mg/dL (1.6-2.3); Potassium 5.4 mmol/L (3.5-5.1); Total Protein 7.6 g/dL (6.3-8.2)
[2024-08-23 10:46] LABS: Alkaline Phosphatase 63 U/L (38-126); Prothrombin Time 10.9 sec (10.0-12.5)
[2024-08-23 10:57] LABS: Partial Thromboplastin Time 20.7 sec (22.0-30.0)
[2024-08-23] MEDS ORDERED: NITROGLYCERIN SL TABS 0.4 MG TAB SUBLINGUAL PRN (11:29)
[2024-08-23] MEDS ORDERED: ACETAMINOPHEN TAB 325 MG TAB PO PRN (16:08)
[2024-08-23] MEDS ORDERED: NALOXONE 0.4 MG/ML 1 ML VIAL IV PRN (16:08)
[2024-08-23] MEDS ORDERED: ONDANSETRON 4 MG/2 ML VIAL IVP PRN (16:08)
[2024-08-23] MEDS ORDERED: guaiFENesin 600 MG TABLET.ER PO PRN (16:11)
--- NOTE | 2024-08-23 16:14 | P.HPIM ---
History of Present Illness H&P Date: 08/23/24 69 year old F with PMH of HTN, HLD, GERD, Depression, h/o gastric bypass, h/o esophageal stenosis presents to the ED for chest pain. Symptoms started while drinking coffee sitting by her computer. Described as tightness from the neck down to the epigastric area. Also reported pain between the shoulder blades at that time. Symptoms associated with diaphoresis, lightheadedness and nausea. No alleviating or aggravating factors. Symptoms resolved as soon as she got to the hospital. She has been struggling with sinusitis recently (rhinorrhea, frontal headache, plugged ears). Drinks 2 glasses of wine daily. Recent Echo in May EF 55-60% with Also reports a recent chemical stress test with Dr. Kasper that was negative. In the ED she underwent extensive evaluation. BP 133/76, HR 70, RR 16, 95% on RA. CBC, Coag panel, CMP significant for APTT 20.7, K 5.4, BUN 20. Mag 1.7. Trop 0.022, < 0.012 x 2. BNP 76. EKG NSR. CXR mild cardiomegaly. General: non toxic, no distress, appears at stated age Derm: warm, dry Head: atraumatic, normocephalic, symmetric Eyes: EOMI, no lid lag, anicteric sclera Mouth: no lip lesion, mucus membranes moist Cardiovascular: S1S2 reg, systolic murmur Lungs: CTA bilateral, no rhonchi, no rales , no accessory muscle use Ext: no gross muscle atrophy, no edema, no contractures Neuro: no focal neuro deficits Psych: Alert, oriented, appropriate affect Based on my assessment of this patient, this patient meets a high complexity level of care. Chest pain Sinusitis Hyperkalemia HTN HLD GERD Depression h/o gastric bypass h/o esophageal stenosis Atypical. Could be related to GERD or h/o esophageal stenosis. Troponins trended and ACS ruled out. Recent stress test and Echo per patient. She does have plans for EGD and C-scope with Dr. Marrufo in the near future. Telemetry monitoring. Start ASA 81 mg PO QD and Continue Crestor 5 mg PO QD. Cardiology consultation. Conservative management for sinusitis. Start Claritin 10 mg PO QD and Mucinex 600 mg PO BID PRN. Consider Z pack if symptoms worsen. Blood specimen is hemolyzed. Repeat BMP in the AM. Restart Losartan 25 mg PO QD. Restart Fluoxetine 40 mg PO QD. CODE STATUS: FULL CODE DVT Prophylaxis: Lovenox SQ GI Prophylaxis: Prilosec PO Designated medical POA if patient is not able to make medical decisions for themselves: I have reviewed the following healthcare risk control consultant notes: ED note. I have reviewed the results of the following tests: As above. I have ordered the following tests: As above. I have discussed the care of this patient with the following independent historian: I have independently interpreted the following test below: EKG. I have discussed the management of this patient with the following physician: Past Medical History Past Medical History: GERD/Reflux, Osteoarthritis (OA), Sleep Apnea/CPAP/BIPAP, Syncope Additional Past Medical History / Comment(s): diverticulitis, cpap use History of Any Multi-Drug Resistant Organisms: None Reported Past Surgical History: Bariatric Surgery, Cholecystectomy, Hernia Repair Additional Past Surgical History / Comment(s): COLPOSCOPY. EGD/Colonoscopy, D&C. 2016. Gastric bypass , repair of hiatal hernia sinus reconstruction , EGD WITH DILATATION 12/01/21, bilateral cataract sx, eyelid lift Past Anesthesia/Blood Transfusion Reactions: No Reported Reaction Past Psychological History: No Psychological Hx Reported Smoking Status: Former smoker Past Alcohol Use History: Occasional Past Drug Use History: None Reported - Past Family History Mother Family Medical History: Cancer Additional Family Medical History / Comment(s): pancreatic cancer Father Family Medical History: Congestive Heart Failure (CHF), Myocardial Infarction ([place]) Medications and Allergies Home Medications Medication Instructions Recorded Confirmed Type Losartan [Cozaar] 25 mg PO DAILY 02/02/24 08/23/24 History Omeprazole [PriLOSEC] 20 mg PO DAILY 02/02/24 08/23/24 History Rosuvastatin Calcium [Crestor] 5 mg PO DAILY 02/02/24 08/23/24 History FLUoxetine HCL [PROzac] 40 mg PO DAILY 08/23/24 08/23/24 History Hydrocortisone Cream 1 applic TOPICAL DAILY 08/23/24 08/23/24 History [Hydrocortisone 2.5% Cream] Allergies Allergy/AdvReac Type Severity Reaction Status Date / Time Sulfa (Sulfonamide Allergy HIVES Verified 08/23/24 11:48 Antibiotics) codeine AdvReac Nausea & Verified 08/23/24 11:48 Vomiting hydrocodone bitartrate AdvReac Nausea & Verified 08/23/24 11:48 [From [facility]] Vomiting povidone-iodine AdvReac Rash/Hives Verified 08/23/24 11:48 [From Betadine] soap [From Betadine] AdvReac Rash/Hives Verified 08/23/24 11:48 Physical Exam Vitals: Vital Signs Pulse Resp BP Pulse Ox 08/23/24 14:07 77 16 126/66 96 08/23/24 12:46 70 16 140/82 95 08/23/24 11:35 79 19 140/81 96 08/23/24 10:45 73 16 135/83 94 L 08/23/24 09:46 70 16 133/76 95 08/23/24 09:19 77 18 97 Intake and Output 08/23/24 08/23/24 08/23/24 06:59 14:59 22:59 Other: Weight 86.183 kg Results CBC & Chem 7: 08/23/24 09:57 08/23/24 09:57 Labs: Abnormal Lab Results - Last 24 Hours (Table) 08/23/24 08/23/24 08/23/24 Range/Units 09:57 09:57 09:57 Lymphocytes # 0.9 L (1.0-4.8) k/uL APTT 20.7 L (22.0-30.0) sec Potassium 5.4 H (3.5-5.1) mmol/L BUN 20 H (7-17) mg/dL
[2024-08-24 02:27] VITALS: RESP 16
[2024-08-24] MEDS: PANTOPRAZOLE 40 MG TABLET PO SCH (06:24)
[2024-08-24 06:58] LABS: African American GFR (CKD) >90 (>60 ml/min/1.73 sqM); Anion Gap 7 mmol/L; Blood Urea Nitrogen 20 mg/dL (7-17); Calcium 9.5 mg/dL (8.4-10.2); Carbon Dioxide 24 mmol/L (22-30); Chloride 105 mmol/L (98-107); Glucose 100 mg/dL (74-99); Non-African American GFR(CKD) 90 (>60 ml/min/1.73 sqM); Potassium 4.3 mmol/L (3.5-5.1); Sodium 136 mmol/L (137-145)
[2024-08-24] MEDS ORDERED: ASPIRIN 325 MG TAB PO SCH (09:00)
[2024-08-24] MEDS: ENOXAPARIN 40 MG/0.4 ML SYRINGE SQ SCH (09:24)
[2024-08-24] MEDS: LORATADINE 10 MG TAB PO SCH (09:25)
[2024-08-24] MEDS: LOSARTAN 25 MG TAB PO SCH (09:25)
[2024-08-24] MEDS: ATORVASTATIN 10 MG TAB PO SCH (09:25)
[2024-08-24] MEDS: ASPIRIN 81 MG PO SCH (09:25)
[2024-08-24] MEDS: FLUoxetine HCL 20 MG CAP PO SCH (09:25)
--- NOTE | 2024-08-24 11:06 | P.CRDCN ---
History of Present Illness History of present illness: HISTORY OF PRESENT ILLNESS: This is a 69-year-old female with a past medical history significant for hypertension, hyperlipidemia, and mitral regurgitation. Patient follows in the office with Dr. Kasper. We have been asked to see the patient in consultation for chest pain. Patient examined at the bedside. Patient states yesterday she was sitting at home drinking her coffee and taking her morning medications when she began to have chest pain. She states that the pain was in the middle of her chest. She also reports feeling nauseated but denies emesis. She states that she felt lightheaded and diaphoretic. She denied having any shortness of breath. She states that she felt "really weird". She states her symptoms lasted for about 20 minutes and then went away. She denies any further episodes of chest pain or pressure since coming to the hospital. Vital signs are stable. DIAGNOSTICS: - EKG reveals sinus mechanism with no signs of acute ischemia. - Chest xray mild cardiomegaly - Laboratory data: WBC 8.1. Hemoglobin 12.8. Platelet count 235. Sodium 136. Potassium 4.3. BUN 20. Creatinine 0.69. Troponin negative x 3 - Current home cardiac medications include rosuvastatin 5 mg daily and losartan 25 mg daily - Most recent echocardiogram obtained in May 2023 revealing normal LV function and mild to moderate MR -Patient underwent Lexiscan stress test in November 2023 which was negative for ischemia REVIEW OF SYSTEMS: At the time of my exam: CONSTITUTIONAL: Denies fever or chills. HEENT: Denies blurred vision, vision changes, or eye pain. Denies hemoptysis CARDIOVASCULAR: Denies chest pain. Denies orthopnea. Denies PND. Denies palpitations RESPIRATORY: Denies shortness of breath. GASTROINTESTINAL: Denies abdominal pain. Denies nausea or vomiting. HEMATOLOGIC: Denies bleeding disorders. GENITOURINARY: Denies any blood in urine. SKIN: Denies pruitis. Denies rash. PHYSICAL EXAM: VITAL SIGNS: Reviewed. GENERAL: Well-developed in no acute distress. HEENT: Head is normocephalic. Pupils are equal, round. Sclerae anicteric. Mucous membranes of the mouth are moist. Neck supple. No JVD or thyromegaly LUNGS: Respirations even and unlabored. Lungs essentially clear to auscultation bilaterally. HEART: Regular rate and rhythm. S1 and S2 heard. Systolic murmur noted ABDOMEN: Soft. Nondistended. Nontender. EXTREMITIES: Normal range of motion. No clubbing or cyanosis. Peripheral pulses intact. No lower extremity edema NEUROLOGIC: Awake and alert. Oriented x 3. ASSESSMENT: Chest pain Hypertension Hyperlipidemia Mild to moderate MR Obesity: BMI 30.7 History of gastric bypass History of esophageal stenosis Daily alcohol use, patient reports 2 glasses of wine daily Former nicotine dependence, quit in 1993 PLAN: An acute coronary event has been ruled out Resume home cardiac medications Patient with history of MR. Patient has significant murmur upon auscultation. Obtain 2D echo to assess cardiac structure and function. Further recommendations pending results of echo Nurse practitioner note has been reviewed by physician. Signing provider agrees with the documented findings, assessment, and plan of care documented by SOLUTION DEVELOPER as a scribe. Past Medical History Past Medical History: GERD/Reflux, Osteoarthritis (OA), Sleep Apnea/CPAP/BIPAP, Syncope Additional Past Medical History / Comment(s): diverticulitis, cpap use. murmur and went to dr kasper for it History of Any Multi-Drug Resistant Organisms: None Reported Past Surgical History: Bariatric Surgery, Cholecystectomy, Hernia Repair Additional Past Surgical History / Comment(s): COLPOSCOPY. EGD/Colonoscopy, D&C. 2017. Gastric bypass , repair of hiatal hernia sinus reconstruction --, EGD WITH DILATATION 12/01/21, bilateral cataract sx, eyelid lift Past Anesthesia/Blood Transfusion Reactions: No Reported Reaction Past Psychological History: No Psychological Hx Reported Additional Psychological History / Comment(s): . Smoking Status: Former smoker Past Alcohol Use History: Occasional Additional Past Alcohol Use History / Comment(s): QUIT SMOKING 1993, STARTED SMOKING 1973, 2PPD Past Drug Use History: None Reported Additional Drug Use History / Comment(s): CBD-USE OCCASIONALLY - Past Family History Mother Family Medical History: Cancer Additional Family Medical History / Comment(s): pancreatic cancer Father Family Medical History: Congestive Heart Failure (CHF), Myocardial Infarction (GA) Medications and Allergies Home Medications Medication Instructions Recorded Confirmed Type Losartan [Cozaar] 25 mg PO DAILY 02/02/24 08/23/24 History Omeprazole [PriLOSEC] 20 mg PO DAILY 02/02/24 08/23/24 History Rosuvastatin Calcium [Crestor] 5 mg PO DAILY 02/02/24 08/23/24 History FLUoxetine HCL [PROzac] 40 mg PO DAILY 08/23/24 08/23/24 History Hydrocortisone Cream 1 applic TOPICAL DAILY 08/23/24 08/23/24 History [Hydrocortisone 2.5% Cream] Allergies Allergy/AdvReac Type Severity Reaction Status Date / Time Sulfa (Sulfonamide Allergy HIVES Verified 08/23/24 11:48 Antibiotics) codeine AdvReac Nausea & Verified 08/23/24 11:48 Vomiting hydrocodone bitartrate AdvReac Nausea & Verified 08/23/24 11:48 [From [place]] Vomiting povidone-iodine AdvReac Rash/Hives Verified 08/23/24 11:48 [From Betadine] soap [From Betadine] AdvReac Rash/Hives Verified 08/23/24 11:48 Physical Exam Vitals: Vital Signs Temp Pulse Pulse Pulse Resp BP BP 08/24/24 07:10 97.9 F 62 16 08/24/24 02:26 98.7 F 59 L 16 151/77 08/23/24 19:24 99.1 F 67 17 147/87 08/23/24 18:15 98.6 F 68 16 164/81 08/23/24 16:52 99.0 F 64 16 145/95 08/23/24 16:05 73 13 140/77 08/23/24 14:07 77 16 126/66 08/23/24 12:46 70 16 140/82 08/23/24 11:35 79 19 140/81 08/23/24 10:45 73 16 135/83 08/23/24 09:46 70 16 133/76 08/23/24 09:19 77 18 BP Pulse Ox 08/24/24 07:10 152/79 98 08/24/24 02:26 97 08/23/24 19:24 98 08/23/24 18:15 98 08/23/24 16:52 98 08/23/24 16:05 100 08/23/24 14:07 96 08/23/24 12:46 95 08/23/24 11:35 96 08/23/24 10:45 94 L 08/23/24 09:46 95 08/23/24 09:19 97 Intake and Output 08/23/24 08/24/2425 22:59 06:59 14:59 Intake Total 118 Balance 118 Intake: Oral 118 Other: # Voids 1 1 Weight 86.183 kg Results 08/23/24 09:57 08/24/24 05:42 Cardiac Enzymes 08/23/24 08/23/24 08/23/24 Range/Units 09:57 09:57 12:05 AST 31 (14-36) U/L Troponin I 0.022 <0.012 (0.000-0.034) ng/mL 08/23/24 Range/Units 14:47 AST (14-36) U/L Troponin I <0.012 (0.000-0.034) ng/mL Coagulation 08/23/24 Range/Units 09:57 PT 10.9 (10.0-12.5) sec APTT 20.7 L (22.0-30.0) sec CBC 08/23/24 Range/Units 09:57 WBC 8.1 (3.8-10.6) k/uL RBC 3.89 (3.80-5.40) m/uL Hgb 12.8 (11.4-16.0) gm/dL Hct 37.8 (34.0-46.0) % Plt Count 235 (150-450) k/uL Comprehensive Metabolic Panel 08/23/24 08/24/24 Range/Units 09:57 05:42 Sodium 139 136 L (137-145) mmol/L Potassium 5.4 H 4.3 (3.5-5.1) mmol/L Chloride 107 105 (98-107) mmol/L Carbon Dioxide 23 24 (22-30) mmol/L BUN 20 H 20 H (7-17) mg/dL Creatinine 0.67 0.69 (0.52-1.04) mg/dL Glucose 87 100 H (74-99) mg/dL Calcium 9.4 9.5 (8.4-10.2) mg/dL AST 31 (14-36) U/L ALT 18 (4-34) U/L Alkaline Phosphatase 63 (38-126) U/L Total Protein 7.6 (6.3-8.2) g/dL Albumin 4.3 (3.5-5.0) g/dL Current Medications Generic Name Dose Route Start Last Admin Trade Name Freq PRN Reason Stop Dose Admin Acetaminophen 650 mg 08/23/24 16:08 Acetaminophen Tab 325 Mg Tab PO Q6HR PRN Mild Pain or Fever > 100.5 Aspirin 81 mg 08/24/24 09:00 Aspirin 81 Mg PO DAILY [facility] Atorvastatin Calcium 10 mg 08/24/24 09:00 Atorvastatin 10 Mg Tab PO DAILY [facility] Enoxaparin Sodium 40 mg 08/24/24 09:00 Enoxaparin 40 Mg/0.4 Ml Syringe SQ DAILY [facility] Fluoxetine HCl 40 mg 08/24/24 09:00 Fluoxetine Hcl 20 Mg Cap PO DAILY [facility] Guaifenesin 600 mg 08/23/24 16:11 Guaifenesin 600 Mg Tablet.Er PO Q12HR PRN Cough Loratadine 10 mg 08/24/24 09:00 Loratadine 10 Mg Tab PO DAILY [facility] Losartan Potassium 25 mg 08/24/24 09:00 Losartan 25 Mg Tab PO DAILY [facility] Naloxone HCl 0.2 mg 08/23/24 16:08 Naloxone 0.4 Mg/Ml 1 Ml Vial IV Q2M PRN Opioid Reversal Nitroglycerin 0.4 mg 08/23/24 11:29 Nitroglycerin Sl Tabs 0.4 Mg Tab SUBLINGUAL Q5M PRN Chest Pain Ondansetron HCl 4 mg 08/23/24 16:08 Ondansetron 4 Mg/2 Ml Vial IVP Q8HR PRN Nausea And Vomiting Pantoprazole Sodium 40 mg 08/24/24 07:30 08/24/24 06:24 Pantoprazole 40 Mg Tablet PO 40 mg [id number] [facility] Administration Intake and Output 08/23/24 08/24/24 08/24/24 22:59 06:59 14:59 Intake Total 118 Balance 118 Intake: Oral 118 Other: # Voids 1 1 Weight 86.183 kg 08/23/24 09:57 08/24/24 05:42
[2024-08-24 11:10] LABS: Chol/HDL Ratio 1.69 Ratio; LDL Cholesterol,Calculated 60.5 mg/dL (0.0-131.0); VLDL Calculation 13.54 mg/dL (5.00-40.00)
--- NOTE | 2024-08-24 11:56 | P.PN ---
Subjective Progress Note Date: 08/24/24 69 year old F with PMH of HTN, HLD, GERD, Depression, h/o gastric bypass, h/o esophageal stenosis presents to the ED for chest pain. Symptoms started while drinking coffee sitting by her computer. Described as tightness from the neck down to the epigastric area. Also reported pain between the shoulder blades at that time. Symptoms associated with diaphoresis, lightheadedness and nausea. No alleviating or aggravating factors. Symptoms resolved as soon as she got to the hospital. She has been struggling with sinusitis recently (rhinorrhea, frontal headache, plugged ears). Drinks 2 glasses of wine daily. Recent Echo in May EF 55-60% with MRPia Also reports a recent chemical stress test with Dr. Kasper that was negative. In the ED she underwent extensive evaluation. BP 133/76, HR 70, RR 16, 95% on RA. CBC, Coag panel, CMP significant for APTT 20.7, K 5.4, BUN 20. Mag 1.7. Trop 0.022, < 0.012 x 2. BNP 76. EKG NSR. CXR mild cardiomegaly. Troponins trended and ACS ruled out. 08/24 Patient was seen and examined. No recurrence of symptoms. Reports green nasal discharge and sinus pressure. Discussed with Dr. Grant and Ene MICHAELS, plans for Echo to evaluate BMP Na 136, BUN 20, glu 100. Lipid panel T. Chol 181, LDL 60.5, HDL 107. General: non toxic, no distress, appears at stated age Derm: warm, dry Head: atraumatic, normocephalic, symmetric Eyes: EOMI, no lid lag, anicteric sclera Mouth: no lip lesion, mucus membranes moist Cardiovascular: S1S2 reg, systolic murmur Lungs: CTA bilateral, no rhonchi, no rales , no accessory muscle use Ext: no gross muscle atrophy, no edema, no contractures Neuro: no focal neuro deficits Psych: Alert, oriented, appropriate affect Based on my assessment of this patient, this patient meets a high complexity level of care. Chest pain Mitral regurgitation Sinusitis HTN HLD GERD Depression h/o gastric bypass h/o esophageal stenosis Resolved: Hyperkalemia Atypical. Could be related to GERD or h/o esophageal stenosis. Troponins trended and ACS ruled out. Recent stress test and Echo per patient. She does have plans for EGD and C-scope with Dr. Marrufo in the near future. Telemetry monitoring. Continue ASA 81 mg PO QD and Crestor 5 mg PO QD. Cardiology recommends repeat Echo to evaluate MR. Claritin 10 mg PO QD and Mucinex 600 mg PO BID PRN. Started Azithromycin 500 mg PO QD for treatment of sinusitis. Losartan 25 mg PO QD. Fluoxetine 40 mg PO QD. CODE STATUS: FULL CODE DVT Prophylaxis: Lovenox SQ GI Prophylaxis: Prilosec PO Designated medical POA if patient is not able to make medical decisions for themselves: Dispo: Discharge planning based on Cardiology recommendations. I have reviewed the following inside solar sales consultant notes: Cardiology note. I have reviewed the results of the following tests: BMP. Lipid panel. I have ordered the following tests: I have discussed the care of this patient with the following independent historian: I have independently interpreted the following test below: I have discussed the management of this patient with the following physician: Ene Dee CHIEF SCIENCE OFFICER Objective - Vital Signs Vital signs: Vital Signs Temp 97.9 F 08/24/24 07:10 Pulse 62 08/24/24 07:10 Resp 16 08/24/24 07:10 BP 152/79 08/24/24 07:10 Pulse Ox 98 08/24/24 07:10 FiO2 Intake & Output 08/23/24 08/24/24 08/24/24 18:59 06:59 18:59 Intake Total 118 Balance 118 Weight 86.183 kg 86.183 kg Intake: Oral 118 Other: # Voids 1 - Labs CBC & Chem 7: 08/23/24 09:57 08/24/24 05:42 Labs: Abnormal Lab Results - Last 24 Hours (Table) 08/24/24 Range/Units 05:42 Sodium 136 L (137-145) mmol/L BUN 20 H (7-17) mg/dL Glucose 100 H (74-99) mg/dL HDL Cholesterol 107.00 H (40.00-60.00) mg/dL
[2024-08-24] MEDS: AZITHROMYCIN 500 MG TAB PO STA (12:25)
--- NOTE | 2024-08-24 13:13 | CA ---
Transthoracic Echo Report Name: Archana Jones Age: 69 Gender: F : 1955 Exam Date: 08/24/2024 10:15 Exam Location: [facility] [place] [facility] Ht (in): 66 Wt (lb): 190 Ordering Physician: Ene Kowalski Attending/Referring Phys: [id number], Dex Housekeeping Director Ananya Conde RDCS Procedure CPT: Indications: LV function, chest pain, mitral regurgitation Cardiac Hx: Technical Quality: Fair Contrast 1: Total Dose (mL): Contrast 2: Total Dose (mL): MEASUREMENTS (Male / Female) Normal Values 2D ECHO LV Diastolic Diameter PLAX 4.2 cm 4.2 - 5.9 / 3.9 - 5.3 cm LV Systolic Diameter PLAX 3.3 cm IVS Diastolic Thickness 1.2 cm 0.6 - 1.0 / 0.6 - 0.9 cm LVPW Diastolic Thickness 1.2 cm 0.6 - 1.0 / 0.6 - 0.9 cm LV Relative Wall Thickness 0.6 RV Internal Dim ED PLAX 3.1 cm LA Systolic Diameter LX 3.9 cm 3.0 - 4.0 / 2.7 - 3.8 cm LV Diastolic Volume MOD 4C 81.6 cm??? LV Systolic Volume MOD 4C 31.5 cm??? LV Ejection Fraction MOD 4C 61.4 % LV Cardiac Index MOD 4C 1480.5 cm???/min???m??? LV Diastolic Length 4C 7.3 cm LV Systolic Length 4C 5.4 cm LV Diastolic Volume MOD 2C 116.1 cm??? LV Systolic Volume MOD 2C 63.5 cm??? LV Ejection Fraction MOD 2C 45.3 % LV Cardiac Index MOD 2C 1555.1 cm???/min???m??? LV Diastolic Length 2C 9.0 cm LV Systolic Length 2C 7.1 cm LA Volume 71.3 cm??? 18 - 58 / 22 - 52 cm??? LA Volume Index 35.1 cm???/m??? 16 - 28 cm???/m??? M-MODE Aortic Root Diameter MM 3.6 cm AV Cusp Separation MM 2.3 cm DOPPLER AV Peak Velocity 187.2 cm/s AV Peak Gradient 14.0 mmHg AV Mean Velocity 119.2 cm/s AV Mean Gradient 6.4 mmHg AV Velocity Time Integral 44.0 cm AI Peak Velocity 316.2 cm/s AI Peak Gradient 40.0 mmHg AI Pressure Half Time 497.7 ms MV Area PHT 2.9 cm??? Mitral E Point Velocity 99.3 cm/s Mitral A Point Velocity 91.8 cm/s Mitral E to A Ratio 1.1 MV Deceleration Time 266.1 ms TR Peak Velocity 244.0 cm/s TR Peak Gradient 23.8 mmHg Right Ventricular Systolic Press 27.9 mmHg FINDINGS Left Ventricle Left ventricular ejection fraction is estimated at 55-60 %. Left ventricular cavity size normal. Mildly increased septal wall thickness. Mildly increased posterior wall thickness. Right Ventricle Normal right ventricular size. Right ventricular systolic pressure within normal limits. Right Atrium Normal right atrial size. No right atrial thrombus or mass seen. Normal right atrial size. No right atrial thrombus or mass seen. Left Atrium Moderately increased left atrial volume. Mildly increased left atrial area. Mitral Valve Structurally normal mitral valve. Trace mitral regurgitation. Aortic Valve Trileaflet aortic valve. Aortic valve sclerosis. Mild aortic regurgitation. Tricuspid Valve Structurally normal tricuspid valve. Mild tricuspid regurgitation. Pulmonic Valve Pulmonic valve not well visualized. Pericardium No pericardial effusion. Aorta Normal size aortic root and proximal ascending aorta. CONCLUSIONS Normal biventricular systolic function Mild aortic regurgitation and mild mitral regurgitation Normal pulmonary artery systolic pressure No pericardial effusion Previewed by: Dr. Preston Mora MD (Electronically Signed) Final Date: 24 August 2024 13:12
[2024-08-24] MEDS: ALPRAZolam 0.25 MG TAB PO STA (22:32)
[2024-08-25 07:24] VITALS: BP 130/84; PULSE 62; TEMP 98.4
[2024-08-25] MEDS ORDERED: AZITHROMYCIN 500 MG TAB PO SCH (10:30)
--- NOTE | 2024-08-25 13:08 | P.DS ---
Providers Date of admission: 08/23/24 11:25 Expected date of discharge: 08/25/24 Attending physician: Gwyn García Consults: 08/23/24 11:29 Consult Physician Urgent Consulting Provider: Preston Mora Consult Reason/Comments: chest pain Do you want consulting provider notified?: Yes Primary care physician: [facility] Course: 69 year old F with PMH of HTN, HLD, GERD, Depression, h/o gastric bypass, h/o esophageal stenosis presents to the ED for chest pain. Symptoms started while drinking coffee sitting by her computer. Described as tightness from the neck do wn to the epigastric area. Also reported pain between the shoulder blades at that time. Symptoms associated with diaphoresis, lightheadedness and nausea. No alleviating or aggravating factors. Symptoms resolved as soon as she got to the hospital. She has been struggling with sinusitis recently (rhinorrhea, frontal headache, plugged ears). Drinks 2 glasses of wine daily. Recent Echo in May EF 55-60% with Also reports a recent chemical stress test with Dr. Kasper that was negative. In the ED she underwent extensive evaluation. BP 133/76, HR 70, RR 16, 95% on RA. CBC, Coag panel, CMP significant for APTT 20.7, K 5.4, BUN 20. Mag 1.7. Trop 0.022, < 0.012 x 2. BNP 76. EKG NSR. CXR mild cardiomegaly. Troponins trended and ACS ruled out. 08/24 Patient was seen and examined. No recurrence of symptoms. Reports green nasal discharge and sinus pressure. Discussed with Dr. Grant and Ene MICHAELS, plans for Echo to evaluate . BMP Na 136, BUN 20, glu 100. Lipid panel T. Chol 181, LDL 60.5, HDL 107. 08/25 Patient was seen and examined. No recurrence of symptoms. Echo shows EF 55- 60% with mild MR/AR. Discussed with BRANDO Luque plans for outpatient stress test. Discharge Plan: One more day of azithromycin prescribed to complete a course for treatment of sinusitis. Losartan increased to 50 mg PO QD for better BP control. Follow up with PCP within 1-2 days of discharge. Follow up with Dr. Kasper on 09/01. General: non toxic, no distress, appears at stated age Derm: warm, dry Head: atraumatic, normocephalic, symmetric Eyes: EOMI, no lid lag, anicteric sclera Mouth: no lip lesion, mucus membranes moist Cardiovascular: S1S2 reg, systolic murmur Lungs: CTA bilateral, no rhonchi, no rales , no accessory muscle use Ext: no gross muscle atrophy, no edema, no contractures Neuro: no focal neuro deficits Psych: Alert, oriented, appropriate affect Based on my assessment of this patient, this patient meets a high complexity level of care. Chest pain Mitral regurgitation Sinusitis HTN HLD GERD Depression h/o gastric bypass h/o esophageal stenosis Resolved: Hyperkalemia This complex discharge took 35 minutes to complete. Patient Condition at Discharge: Stable Plan - Discharge Summary New Discharge Prescriptions: New Loratadine [Claritin] 10 mg PO DAILY #0 tab Losartan [Cozaar] 50 mg PO DAILY #30 tab guaiFENesin [Mucinex] 600 mg PO Q12HR PRN tab PRN Reason: Cough Azithromycin [Zithromax] 500 mg PO DAILY #1 tab Aspirin 81 mg PO DAILY #30 tab Acetaminophen Tab [Tylenol] 650 mg PO Q6HR PRN tab PRN Reason: Mild Pain Or Fever > 100.5 Continue Omeprazole [PriLOSEC] 20 mg PO DAILY Hydrocortisone Cream [Hydrocortisone 2.5% Cream] 1 applic TOPICAL DAILY Rosuvastatin Calcium [Crestor] 5 mg PO DAILY FLUoxetine HCL [PROzac] 40 mg PO DAILY Discontinued Losartan [Cozaar] 25 mg PO DAILY Discharge Medication List Omeprazole [PriLOSEC] 20 mg PO DAILY 02/02/24 [History] Rosuvastatin Calcium [Crestor] 5 mg PO DAILY 02/02/24 [History] FLUoxetine HCL [PROzac] 40 mg PO DAILY 08/23/24 [History] Hydrocortisone Cream [Hydrocortisone 2.5% Cream] 1 applic TOPICAL DAILY 08/23/24 [History] Acetaminophen Tab [Tylenol] 650 mg PO Q6HR PRN tab 08/25/24 [Rx] Aspirin 81 mg PO DAILY #30 tab 08/25/24 [Rx] Azithromycin [Zithromax] 500 mg PO DAILY #1 tab 08/25/24 [Rx] Loratadine [Claritin] 10 mg PO DAILY #0 tab 08/25/24 [Rx] Losartan [Cozaar] 50 mg PO DAILY #30 tab 08/25/24 [Rx] guaiFENesin [Mucinex] 600 mg PO Q12HR PRN tab 08/25/24 [Rx] Follow up Appointment(s)/Referral(s): Kalpesh Kasper MD [STAFF PHYSICIAN] - 09/01/24 11:00 am Mynor Chakraborty DO [Primary Care Provider] - 1-2 days Discharge Disposition: HOME SELF-CARE
--- NOTE | 2024-08-25 13:49 | P.PN ---
Subjective HISTORY OF PRESENT ILLNESS: This is a 69-year-old female with a past medical history significant for hypertension, hyperlipidemia, and mitral regurgitation. Patient follows in the office with Dr. Kasper. We have been asked to see the patient in consultation for chest pain. Patient examined at the bedside. Patient states yesterday she was sitting at home drinking her coffee and taking her morning medications when she began to have chest pain. She states that the pain was in the middle of her chest. She also reports feeling nauseated but denies emesis. She states that she felt lightheaded and diaphoretic. She denied having any shortness of breath. She states that she felt "really weird". She states her symptoms lasted for about 20 minutes and then went away. She denies any further episodes of chest pain or pressure since coming to the hospital. Vital signs are stable. DIAGNOSTICS: - EKG reveals sinus mechanism with no signs of acute ischemia. - Chest xray mild cardiomegaly - Laboratory data: WBC 8.1. Hemoglobin 12.8. Platelet count 235. Sodium 136. Potassium 4.3. BUN 20. Creatinine 0.69. Troponin negative x 3 - Current home cardiac medications include rosuvastatin 5 mg daily and losartan 25 mg daily - Most recent echocardiogram obtained in May 2023 revealing normal LV function and mild to moderate MR -Patient underwent Lexiscan stress test in November 2023 which was negative for ischemia 08/25/2024 Patient examined this morning at the bedside. Patient denies any further episodes of chest pain or pressure. She denies shortness of breath. She has been up ambulating without difficulty. Vital signs are stable. Echocardiogram completed revealing ejection fraction of 55 to 60%, trace MR, mild AR, mild TR. PHYSICAL EXAM: VITAL SIGNS: Reviewed. GENERAL: Well-developed in no acute distress. HEENT: Head is normocephalic. Pupils are equal, round. Sclerae anicteric. Mucous membranes of the mouth are moist. Neck supple. No JVD or thyromegaly LUNGS: Respirations even and unlabored. Lungs essentially clear to auscultation bilaterally. HEART: Regular rate and rhythm. S1 and S2 heard. Systolic murmur noted ABDOMEN: Soft. Nondistended. Nontender. EXTREMITIES: Normal range of motion. No clubbing or cyanosis. Peripheral pulses intact. No lower extremity edema NEUROLOGIC: Awake and alert. Oriented x 3. ASSESSMENT: Chest pain Hypertension Hyperlipidemia Mild to moderate MR Obesity: BMI 30.7 History of gastric bypass History of esophageal stenosis Daily alcohol use, patient reports 2 glasses of wine daily Former nicotine dependence, quit in 1993 PLAN: An acute coronary event has been ruled out 2D echo obtained and reviewed Continue current cardiac medications Offered patient to have inpatient stress testing. Patient is declining and would like to be discharged and follow-up in the office with plan for outpatient stress testing Patient is stable for discharge home today from a cardiac standpoint Nurse practitioner note has been reviewed by physician. Signing provider agrees with the documented findings, assessment, and plan of care documented by POWER DISTRIBUTOR as a scribe. Objective - Vital Signs Vital signs: Vital Signs Temp 98.4 F 08/25/24 07:00 Pulse 62 08/25/24 07:00 Resp 16 08/25/24 07:00 BP 130/84 08/25/24 07:00 Pulse Ox 98 08/25/24 07:00 FiO2 Intake & Output 08/24/24 08/25/24 08/25/24 18:59 06:59 18:59 Intake Total 358 Balance 358 Intake: Oral 358 Other: Voiding Method Toilet Toilet Toilet # Voids 3 2 - Labs CBC & Chem 7: 08/23/24 09:57 08/24/24 05:42
[2024-08-26] MEDS ORDERED: LOSARTAN 50 MG TAB PO SCH (09:00)
== END 2024-08-25 13:43 | disposition home or self-care (01) ==
LOC: EC 09:12 → 6NMEDSUR 11:25
PROVIDERS: ADMIT Student in an Organized Health Care Education/Training Program; ATTEND Student in an Organized Health Care Education/Training Program
DX: R07.89 Other chest pain (principal); I11.9 Hypertensive heart disease without heart failure; E78.5 Hyperlipidemia, unspecified; I34.0 Nonrheumatic mitral (valve) insufficiency; E87.5 Hyperkalemia; K21.9 Gastro-esophageal reflux disease without esophagitis; J32.9 Chronic sinusitis, unspecified; R61 Generalized hyperhidrosis; M54.2 Cervicalgia; F32.A Depression, unspecified; Z68.30 Body mass index [BMI] 30.0-30.9, adult; E66.9 Obesity, unspecified; F10.90 Alcohol use, unspecified, uncomplicated; Z79.899 Other long term (current) drug therapy; Z88.5 Allergy status to narcotic agent; Z88.2 Allergy status to sulfonamides; Z91.048 Other nonmedicinal substance allergy status; Z87.891 Personal history of nicotine dependence; Z98.84 Bariatric surgery status; Z87.19 Personal history of other diseases of the digestive system
CPT/HCPCS: 96372 ×2; 99285; 36415; 93005; 93306; 83880; 80061; 80053; 80048; 83735; 84484; 85025; 85610; 85730; 71046; G0378 ×3; J1650 ×2

== ENCOUNTER 2024-10-12 08:33 | Inpatient (IN) | payer MEDICARE ==
[2024-10-10 10:06] VITALS: BMI 28.1
[~2024-10-12 08:33] MED LIST changes: -LACTATED RINGERS 1,000 ML IV SCH
[2024-10-12] MEDS ORDERED: Antibiotics per Pharmacy 1 EACH MISC MISCELLANE PRN (08:53)
--- NOTE | 2024-10-12 08:53 | P.GSHP ---
History of Present Illness H&P Date: 10/12/24 CHIEF COMPLAINT: Sigmoid diverticulosis with obstruction HISTORY OF PRESENT ILLNESS: The patient is a 69-year-old female who presents with change in bowel habits including constipation. Recent colonoscopy demonstrated partial obstruction. Patient presents for surgical resection. PAST MEDICAL HISTORY: Please see list. PAST SURGICAL HISTORY: Please see list. MEDICATIONS: Please see list. ALLERGIES: Please see list. SOCIAL HISTORY: No illicit drug use FAMILY HISTORY: No reports of Crohn disease or ulcerative colitis. REVIEW OF ORGAN SYSTEMS: CONSTITUTIONAL: Denies any fever or chills. HEENT: Denies any trouble with vision or nosebleeds. No difficulty swallowing. LYMPHATIC: The patient denies any lumps and bumps around the neck. ENDOCRINE: Denies any thyroid disorders. Has blood sugar glucose intolerance. RESPIRATORY: Denies pneumonia. Denies any troubles with breathing or dyspnea on exertion. CARDIOVASCULAR: Hypertensive heart disease GASTROINTESTINAL: Change in bowel habits. Constipation. History of gastric bypass GENITOURINARY: Has increased urinary frequency. MUSCULOSKELETAL: Has back pain, stiffness, joint arthritis. NEUROLOGIC: Denies any numbness or tingling along the distal extremities. No seizure disorders or headaches. PSYCHIATRIC: Denies depression or suidical ideation. HEMATOLOGIC: Denies any abnormal bleeding or bruising. PHYSICAL EXAM: VITAL SIGNS: Stable GENERAL: Well-developed pleasant in no acute distress. HEENT: No scleral icterus. Extraocular movements grossly intact. Moist buccal mucosa. NECK: Supple without lymphadenopathy. CHEST: Unlabored respirations. Equal bilateral excursions. CARDIOVASCULAR: Regular rate and rhythm. Distal 2+ pulses. ABDOMEN: Soft, nontender, nondistended. MUSCULOSKELETAL: No clubbing, cyanosis, or edema. NERUO: Cranial nerves 2-12 grossly intact. PSYCH: Alert and oriented to person place and time. ASSESSMENT: 1. Sigmoid diverticulosis with bowel obstruction 2. History of gastric bypass 3 hypertensive heart disease. PLAN: 1. Benefits and risks of surgical robotic sigmoid resection was reviewed in detail. Robotic-assisted approach was also described. 2. Enhanced colon recovery program. 3. DVT prophylaxis. 4. Antibiotic prophylaxis. 5. Inpatient hospitalization greater than 2 nights. 6. Endoscopy with colonic tattoo described for surgical resection 7. Patient is elevated due to pre-existing comorbidities including gastric bypass, hypertensive heart disease Past Medical History Past Medical History: GERD/Reflux, Hypertension, Osteoarthritis (OA), Sleep Apnea/CPAP/BIPAP, Syncope Additional Past Medical History / Comment(s): diverticulitis, cpap use-process of getting new one 09/2024. murmur and went to dr pierre for it History of Any Multi-Drug Resistant Organisms: None Reported Past Surgical History: Bariatric Surgery, Cholecystectomy, Hernia Repair Additional Past Surgical History / Comment(s): COLPOSCOPY. EGD/Colonoscopy, D&C. 2016. Gastric bypass , repair of hiatal hernia, sinus reconstruction -, EGD WITH DILATATION 12/01/21, bilateral cataract sx, eyelid lift Past Anesthesia/Blood Transfusion Reactions: No Reported Reaction Smoking Status: Former smoker - Past Family History Mother Family Medical History: Cancer Additional Family Medical History / Comment(s): pancreatic cancer Father Family Medical History: Congestive Heart Failure (CHF), Myocardial Infarction (LA) Medications and Allergies Home Medications Medication Instructions Recorded Confirmed Type Omeprazole [PriLOSEC] 20 mg PO DAILY 02/02/24 10/10/24 History Rosuvastatin Calcium [Crestor] 5 mg PO DAILY 02/02/24 10/10/24 History FLUoxetine HCL [PROzac] 40 mg PO DAILY 08/23/24 10/10/24 History Hydrocortisone Cream 1 applic TOPICAL DAILY PRN 08/23/24 10/10/24 History [Hydrocortisone 2.5% Cream] Loratadine [Claritin] 10 mg PO DAILY #0 tab 08/25/24 10/10/24 Rx Losartan [Cozaar] 50 mg PO DAILY #30 tab 08/25/24 10/10/24 Rx Allergies Allergy/AdvReac Type Severity Reaction Status Date / Time Sulfa (Sulfonamide Allergy HIVES Verified 10/12/24 08:47 Antibiotics) codeine AdvReac Nausea & Verified 10/12/24 08:47 Vomiting hydrocodone bitartrate AdvReac Nausea & Verified 10/12/24 08:47 [From Renner] Vomiting povidone-iodine AdvReac Rash/Hives Verified 10/12/24 08:47 [From Betadine] soap [From Betadine] AdvReac Rash/Hives Verified 10/12/24 08:47
[2024-10-12] MEDS: LACTATED RINGERS 1,000 ML IV ONE (09:06)
[2024-10-12] MEDS ORDERED: PROPOFOL 10 MG/ML 20 ML VIAL IV ONE (09:29)
[2024-10-12] MEDS ORDERED: METOCLOPRAMIDE 5 MG/ML 2 ML VIAL IVP PRN (10:11)
--- NOTE | 2024-10-12 10:11 | P.PCN ---
Date of Procedure: 10/12/24 Description of Procedure: PREOPERATIVE DIAGNOSIS: Partial obstruction POSTOPERATIVE DIAGNOSIS: Partial obstruction due to sigmoid diverticulosis OPERATION: Colonoscopy to the ascending colon SURGEON: Yu Marrufo MD. ANESTHESIA: MAC. INDICATIONS: The patient is a 69-year-old female who presents for endoscopic assessment, obstruction sigmoid colon. Benefits and risks were described and informed consent was obtained. DESCRIPTION OF PROCEDURE: The patient had undergone Sutab prep. The patient had been brought into the operating room and laid in the left lateral decubitus position. After adequate intravenous sedation, the rectum was examined with 2% lidocaine jelly. External hemorrhoids were encountered. The rectal tone was within normal limits. No lesions were palpated in the rectal vault. An Olympus colonoscope was advanced until the cecum, ileocecal valve and appendiceal orifice were clearly viewed. The prep was good. Highly redundant sigmoid colon with partial obstruction identified at 20 cm from the anal verge including pandiverticulosis. Moderate to severe sigmoid diverticulosis was encountered. No colonic polyps were found. No evidence of focal colitis was found. Retroflexion of the scope demonstrated grade 2 internal hemorrhoids without active bleeding or inflammation. The colon was desufflated. The patient had tolerated the procedure well. Withdrawal time was over 6 minutes. FINDINGS: Aronchick preparation quality scale 2 (1-5) Internal hemorrhoids, grade 2 External prolapsed hemorrhoids, grade 2. No arteriovenous malformations. No adenomatous polyps. No focal colitis. Partial obstruction 20 cm from the anal verge with severe sigmoid diverticulosis RECOMMENDATIONS: Due to symptomatic partial obstruction, inpatient mission for colectomy described
[2024-10-12] MEDS: LACTATED RINGERS 1,000 ML IV SCH (11:13)
[2024-10-12] MEDS: SODIUM CHLORIDE 0.9% 1,000 ML IV ONE (11:13)
[2024-10-12] MEDS: SODIUM CHLORIDE 0.9% 1,000 ML IV SCH (11:13)
[2024-10-12] MEDS: NEOMYCIN 500 MG TAB PO SCH (13:06)
[2024-10-12] MEDS: PEG 3350 (420 GM/BTL) + LYTES 4,000 ML BOTTLE PO ONE (13:06)
[2024-10-12] MEDS: ONDANSETRON 4 MG/2 ML VIAL IVP SCH (13:06)
[2024-10-12] MEDS: metroNIDAZOLE 500 MG TAB PO SCH (13:06)
[2024-10-12] MEDS: 0.9% NACL WITH KCL 40 MEQ/L 1,000 ML IV SCH (17:19)
[2024-10-13 05:11] LABS: Basophils % (A) 0 %; Eosinophils # (A) 0.1 k/uL (0-0.7); Eosinophils % (A) 3 %; HCT 35.5 % (34.0-46.0); HGB 11.4 gm/dL (11.4-16.0); Lymphocytes # (A) 0.9 k/uL (1.0-4.8); Lymphocytes % (A) 23 %; MCH 32.2 pg (25.0-35.0); MCHC 32.1 g/dL (31.0-37.0); MCV 100.4 fL (80.0-100.0); Mean Platelet Volume 7.3; Monocytes # (A) 0.3 k/uL (0-1.0); Monocytes % (A) 8 %; Neutrophils # (A) 2.6 k/uL (1.3-7.7); Neutrophils % (A) 64 %; Platelet Count 185 k/uL (150-450); RBC 3.54 m/uL (3.80-5.40); RDW 12.3 % (11.5-15.5); WBC 4.1 k/uL (3.8-10.6)
[2024-10-13 05:35] LABS: ALT 21 U/L (4-34); AST 24 U/L (14-36); African American GFR (CKD) >90 (>60 ml/min/1.73 sqM); Albumin 3.2 g/dL (3.5-5.0); Albumin/Globulin Ratio 1.2; Alkaline Phosphatase 66 U/L (38-126); Anion Gap 4 mmol/L; Blood Urea Nitrogen 11 mg/dL (7-17); Calcium 8.8 mg/dL (8.4-10.2); Carbon Dioxide 24 mmol/L (22-30); Chloride 109 mmol/L (98-107); Globulin 2.6 g/dL; Glucose 88 mg/dL (74-99); Non-African American GFR(CKD) 87 (>60 ml/min/1.73 sqM); Potassium 4.6 mmol/L (3.5-5.1); Sodium 137 mmol/L (137-145); Total Bilirubin 0.8 mg/dL (0.2-1.3); Total Protein 5.8 g/dL (6.3-8.2)
[2024-10-13] MEDS: LOSARTAN 50 MG TAB PO SCH (07:58)
[2024-10-13] MEDS: LORATADINE 10 MG TAB PO SCH (07:58)
[2024-10-13] MEDS: PANTOPRAZOLE 40 MG TABLET PO SCH (07:58)
[2024-10-13] MEDS: IV FLUID CONTINUATION 1,000 ML IV ONE (10:12)
[2024-10-13] MEDS: ALVIMOPAN 12 MG CAPSULE PO PRN (10:20)
[2024-10-13] MEDS: ACETAMINOPHEN TAB 500 MG TAB PO PRN (10:20)
[2024-10-13] MEDS: FAMOTIDINE 20 MG/2 ML VIAL IV STA (10:22)
[2024-10-13] MEDS: DEXAMETHASONE SOD PHOSPHATE 4 MG/ML 1 ML VIAL IVP STA (10:23)
[2024-10-13] MEDS: SCOPOLAMINE 1 MG/72 HR PATCH TRANSDERM STA (10:41)
[2024-10-13] MEDS: MIDAZOLAM 2 MG/2 ML VIAL IV ONE (10:57)
[2024-10-13] MEDS: HEPARIN SODIUM,PORCINE 5,000 UNIT/ML 1 ML VIAL SQ PRN (11:14)
[2024-10-13] MEDS ORDERED: NEOSTIGMINE 1 MG/ML 10 ML VIAL ONE (11:22)
[2024-10-13] MEDS ORDERED: PROPOFOL 10 MG/ML 20 ML VIAL IV ONE (11:22)
[2024-10-13] MEDS ORDERED: fentaNYL (PF) 50 MCG/ML 2 ML AMP ONE (11:22)
[2024-10-13] MEDS ORDERED: DEXAMETHASONE SOD PHOSPHATE 4 MG/ML 1 ML VIAL ONE (11:22)
[2024-10-13] MEDS ORDERED: GLYCOPYRROLATE 0.2 MG/ML 2 ML VIAL ONE (11:22)
[2024-10-13] MEDS ORDERED: MIDAZOLAM 2 MG/2 ML VIAL ONE (11:22)
[2024-10-13] MEDS ORDERED: SUCCINYLCHOLINE CHLORIDE 200 MG/10 ML VIAL IV ONE (11:22)
[2024-10-13] MEDS ORDERED: LIDOCAINE 1% INJ 10MG/ML (20 ML MDV) ONE (11:22)
[2024-10-13] MEDS ORDERED: ROCURONIUM 10 MG/ML (5 ML VIAL) IV ONE (11:22)
[2024-10-13] MEDS ORDERED: ROPIVACAINE 5 MG/ML 30 ML VIAL ONE (11:22)
[2024-10-13] MEDS ORDERED: BENZOCAINE/MENTHOL LOZENG 1 EACH LOZENGE MUCOUS MEM PRN (11:39)
[2024-10-13] MEDS ORDERED: KETOROLAC 15 MG/ML 1 ML VIAL IVP PRN (11:39)
[2024-10-13] MEDS: metroNIDAZOLE-NS PMX 500 MG in SALINE 1 100ML.BAG IVPB PRN (11:45)
[2024-10-13] MEDS: LIDOCAINE 1%-EPI 1:100,000 20 ML VIAL SQ ONE ×2 (11:50→11:56)
--- NOTE | 2024-10-13 12:01 | P.ANPRN ---
Procedure Note - Anesthesia - Nerve Block Performed Bilateral Erector Spinae Single Time Out Performed: Yes Date of Procedure: 10/13/24 Procedure Start Time: 10:56 Procedure Stop Time: 11:01 Location of Patient: PreOp Indication: Acute Post-Operative Pain, Analgesia, Requested by Surgeon Sedation Type: Sedate with meaningful contact maintained Preparation: Sterile Prep Position: Prone Catheter: None Needle Types: Pajunk Needle Gauge: 21 Ultrasound used to visualize needle placement: Yes Ultrasound used to observe medication spread: Yes Injectate: 0.5% Ropivacaine (see comment for volume) ([id number], T11 needle level-----Each side.(Resident).) Blood Aspirated: No Pain Paresthesia on Injection Noted: No Resistance on Injection: Normal Image Stored and Saved: Yes Events: Uneventful and Well Tolerated
[2024-10-13] MEDS: LACTATED RINGERS 1,000 ML IV ONE (14:03)
--- NOTE | 2024-10-13 15:04 | P.OP ---
Date of Procedure: 10/13/24 Description of Procedure: SURGEON: JOSE ALEJANDRO LINDO MD PREOPERATIVE DIAGNOSES: 1. Sigmoid diverticulosis with large bowel obstruction 2. History of gastric bypass 3. Obesity excess calories, BMI 30.6 4. Hypertensive heart disease 5. Depressive disorder 6. Hyperlipidemia 7. Generalized anxiety disorder 8. History obstructive sleep apnea POSTOPERATIVE DIAGNOSES: 1. Sigmoid diverticulitis with large bowel obstruction 2. History of gastric bypass 3. Obesity excess calories, BMI 30.6 4. Hypertensive heart disease 5. Depressive disorder 6. Hyperlipidemia 7. Generalized anxiety disorder 8. History obstructive sleep apnea OPERATION: 1. Robotic-assisted daVinci Xi sigmoid colectomy with low anterior resection using 29 mm Ethicon powered stapler 2. Intraoperative colonoscopy used for sigmoidoscopy Anesthesia: GETA, local, regional Estimated Blood Loss (ml): 10 Pathology: 1. Sigmoid colon 2. EEA donuts 3. Proximal colotomy Condition: stable Disposition: floor COMPLICATIONS: None. Operative Findings: 1. Redundant sigmoid colon with 12 inch resection 2. Anastomosis with EEA stapler 29 mm 3. No tension or torsion along the anastomosis 4. Doughnuts thick and both sides and viable 5. Moderately redundant sigmoid colon without tension at anastomosis 6. Negative leak test with viable anastomosis. INDICATIONS: The patient is a 69-year-old female who presents with change in bowel habits, sigmoid diverticulosis with tortuous colon including partial bowel obstruction. Benefits and risks of surgical intervention was described in detail including infection, injury to the ureter, colostomy creation, possibility for additional surgery was discussed at length. Informed consent was obtained. All questions of the patient and family were answered. DESCRIPTION: Earlier the patient had undergone a bowel prep using the enhanced colon recovery program. The patient was transferred to the operating room and placed supine. After general induction, the abdomen was prepped and draped in standard sterile fashion. Ioban was placed along the abdomen to minimize any contamination of skin floor. A Moe catheter was placed. After a timeout protocol was performed, attention was then brought to the left upper quadrant whereby a 0 degree 5 mm laparoscopic trocar entry was performed. The abdominal cavity was entered and insufflated to 15 mmHg pressure, which was tolerated well. Diagnostic laparoscopy confirmed moderately redundant sigmoid colon. The small bowel was unremarkable. Next a robotic 12-mm trocar was placed along the right lateral abdominal wall 17 cm superior from the pelvis. Two 8 mm ports were placed along the upper abdomen. Ports were placed 10 cm apart from each other including 20 cm away from the target anatomy of the left pelvis. The 12-mm port was exchanged for an 8 mm robotic port at the left upper quadrant. The robot was docked along the left lateral abdomen. The patient was positioned in steep Trendelenburg position at 21-degrees. Using atraumatic graspers and vessel sealer, the robotic system was docked and primed as described. Instruments were interchanged by the material assistant including hook cautery, needle refrigerated national truck driver, robotic stapler and vessel sealer. The robot stapler was prepared along the right lateral abdominal wall. The stapler 12-mm port was arranged along the right lateral abdominal wall. Next, attention was brought to identify the sigmoid colon. A stay suture using 3- 0 silk was placed along the anterior serosa of the redundant sigmoid colon. The sigmoid mesentery was mobilized using a vessel sealer whereby the descending colon was marked and tagged. Using multiple fires of the robot stapler 60 mm green load, the proximal sigmoid colon was divided. The mesentery of the sigmoid colon was mobilized towards the pelvic brim and sacral promontory using a vessel sealer. Residual recent diverticulitis along the sigmoid mesentery of the distal segment was found. Next, the sigmoid colon was divided using the robotic stapler 60 mm black staple loads. The rest of the sigmoid colon mesentery was mobilized using vessel sealer. Additionally, the sigmoid colon was mobilized onto the colon to minimize injury to the ureters. I went to the foot of the bed to confirm sizers and placement of 29-mm Ethicon powered stapler. I re-scrubbed into the case. The robotic arms were temporarily undocked. A 29-mm anvil was placed with a 3-0 silk sutured at the tip of the anvil fur feeder. Then the anvil was placed via the left upper quadrant 12 mm port. All robotic arms were re-docked. I went back to the console. The staple line was opened using cautery. The anvil was entered into the proximal descending colon. The colotomy was closed using 60 mm green load. Next, the sharp tip of the anvil fur feeder was brought through the staple line. The anvil fur feeder was removed from the abdomen using empty clip appliers. I went to the foot of the bed to place the powered Ethicon 29 mm stapler via the rectum. The anvil and stapler were mated for 1 minute. The doughnuts were intact on both sides and thick with double lumen. An intraoperative leak test was performed as I inserted the colonoscope to the anastomosis. Endoscopic images were obtained. Irrigation was placed in the pelvis and no air leaks were identified. Irrigation fluid was aspirated from the pelvis until dry. I went back to the console. All sponges and needles were removed from the abdominal cavity. The robot was undocked. I re-scrubbed into the case. Via the left upper quadrant port, the sigmoid colon was removed using 15 mm Endo Catch bag. All sponges were removed from the abdominal cavity. The left upper quadrant incision was widened to 3-cm. No contamination had occurred throughout the case. The fascial defect was oversewn using 0 Vicryl and a Haider [place]. Next all pneumoperitoneum was evacuated from the abdominal cavity. The 8-mm trocar sites were reapproximated using 4-0 Monocryl in an interrupted subcuticular fashion. Local anesthetic was infiltrated to all wounds for postop analgesia. All incisions were also cleansed with diluted hydrogen peroxide. An EntrenaYa Ag advance surgical dressing was placed over the colon extraction site. Liquid glue was applied to the rest of the skin incisions. The patient had tolerated the procedure well. The patient was extubated successfully. The patient was transferred to the postanesthesia care unit in stable condition. The patient's son, Sterling, was updated via telephone.
[2024-10-13] MEDS: fentaNYL (PF) 50 MCG/ML 2 ML AMP IVP PRN (15:22)
[2024-10-13] MEDS ORDERED: HYDROmorphone 1 MG/ML 1 ML SYRINGE IVP PRN (16:02)
[2024-10-13] MEDS ORDERED: NALOXONE 0.4 MG/ML 1 ML VIAL IV PRN (16:18)
[2024-10-13] MEDS: SODIUM CHLORIDE 0.9% 1,000 ML IV ONE (16:27)
[2024-10-13] MEDS: HEPARIN SODIUM,PORCINE 5,000 UNIT/ML 1 ML VIAL SQ SCH (16:28)
[2024-10-13] MEDS: ACETAMINOPHEN IV (For NPO) 1,000 MG in EMPTY BAG 1 BAG IVPB SCH (16:30)
[2024-10-13] MEDS: KETOROLAC 15 MG/ML 1 ML VIAL IVP SCH (16:31)
[2024-10-13] MEDS: D5-0.45% NACL WITH KCL 20MEQ/L 1,000 ML IV SCH (17:54)
[2024-10-13] MEDS: fentaNYL PCA 500 MCG/50 ML BAG IV SCH (18:30)
[2024-10-13] MEDS: metroNIDAZOLE-NS PMX 500 MG in SALINE 1 100ML.BAG IVPB SCH (21:22)
[2024-10-14] MEDS: ALVIMOPAN 12 MG CAPSULE PO SCH (09:39)
--- NOTE | 2024-10-14 10:06 | P.PN ---
Subjective Progress Note Date: 10/14/24 Principal diagnosis: Post colectomy Patient says she is having mild soreness today. She has ambulated once. She is tolerating diet with no vomiting. Minimal nausea. Passed some flatus earlier today. Objective - Vital Signs Vital signs: Vital Signs Temp 98.7 F 10/14/24 07:05 Pulse 68 10/14/24 07:05 Resp 16 10/14/24 07:05 BP 121/61 10/14/24 07:05 Pulse Ox 95 10/14/24 07:05 FiO2 Intake & Output 10/13/24 10/14/24 10/14/24 18:59 06:59 18:59 Intake Total 1750 480 Output Total 10 2200 Balance 1740 -2200 480 Intake: IV 1750 Oral 480 Output: Urine 2200 Uretheral (Moe) 1100 Estimated Blood Loss 10 Other: Voiding Method Toilet Indwelling Catheter - Exam Abdomen: Soft, nondistended, incisions clean and dry, minimal tenderness - Labs CBC & Chem 7: 10/13/24 04:24 10/13/24 04:24 Assessment and Plan (1) Diverticulosis of large intestine without perforation or abscess without bleeding Narrative/Plan: 69-year-old female doing fairly well after recent laparoscopic colectomy yeste rday. Patient states she is not ready to go home yet this morning. Will see how the day progresses. She is a bit concerned because her son who will be picking her up apparently came down with some viral illness overnight. Continue ambulation. Continue diet. Resume home meds. Current Visit: No Status: Acute Code(s): K57.30 - DVRTCLOS OF LG INT W/O PERFORATION OR ABSCESS W/O BLEEDING SNOMED Code(s): 790154681
[2024-10-14] MEDS: FLUoxetine HCL 20 MG CAP PO SCH (10:32)
[2024-10-14 14:28] LABS: Influenza A Not Detected (Not Detectd); Influenza B Not Detected (Not Detectd); RSV Not Detected (Not Detectd)
[2024-10-14 14:58] LABS: Basophils % (A) 0 %; Eosinophils # (A) 0.1 k/uL (0-0.7); Eosinophils % (A) 1 %; HCT 33.4 % (34.0-46.0); HGB 10.6 gm/dL (11.4-16.0); Hypochromasia Slight; Lymphocytes # (A) 1.2 k/uL (1.0-4.8); Lymphocytes % (A) 16 %; MCH 32.4 pg (25.0-35.0); MCHC 31.8 g/dL (31.0-37.0); MCV 101.9 fL (80.0-100.0); Macrocytosis Slight; Mean Platelet Volume 8.3; Monocytes # (A) 0.4 k/uL (0-1.0); Monocytes % (A) 5 %; Neutrophils # (A) 5.6 k/uL (1.3-7.7); Neutrophils % (A) 77 %; Platelet Count 186 k/uL (150-450); RBC 3.27 m/uL (3.80-5.40); RDW 12.9 % (11.5-15.5); WBC 7.3 k/uL (3.8-10.6)
--- NOTE | 2024-10-15 09:58 | P.PN ---
Subjective Progress Note Date: 10/15/24 Principal diagnosis: Post colectomy Patient doing better today. Yesterday she had a sore throat and there was some concern because her daughter and son we believe both have COVID recently diagnosed in the last 24 hours. Her studies were negative when the viral studies were performed. She did have some bloody stools yesterday. Moderate volume. That has since stopped and she has had brown stools. Hemoglobin stable this morning. Patient has been ambulating in the hallways. Tolerating diet. Objective - Vital Signs Vital signs: Vital Signs Temp 99 F 10/15/24 07:29 Pulse 68 10/15/24 07:29 Resp 19 10/15/24 07:29 BP 143/77 10/15/24 07:29 Pulse Ox 91 L 10/15/24 07:29 FiO2 Intake & Output 10/14/24 10/15/24 10/15/24 18:59 06:59 18:59 Intake Total 2988 240 Output Total 5 Balance 2983 240 Intake: Oral 2988 240 Output: Urine/Stool Mix 5 Other: Voiding Method Toilet Toilet # Voids 5 - Exam Abdomen: Soft, nondistended, incisions clean and dry, mild incisional tenderness - Labs CBC & Chem 7: 10/14/24 14:12 10/13/24 04:24 Labs: Abnormal Lab Results - Last 24 Hours (Table) 10/14/24 Range/Units 14:12 RBC 3.27 L (3.80-5.40) m/uL Hgb 10.6 L (11.4-16.0) gm/dL Hct 33.4 L (34.0-46.0) % MCV 101.9 H (80.0-100.0) fL Assessment and Plan (1) Diverticulosis of large intestine without perforation or abscess without bleeding Narrative/Plan: Patient is doing better today. She is trying to check with a friend to see if she can stay with her for a few days while her other family members are recovering from their COVID issues. If so plan discharge this afternoon. Current Visit: No Status: Acute Code(s): K57.30 - DVRTCLOS OF LG INT W/O PERFORATION OR ABSCESS W/O BLEEDING SNOMED Code(s): 779475728
[2024-10-16 06:10] VITALS: BP 138/81; PULSE 57; RESP 18; TEMP 98.3
--- NOTE | 2024-10-16 10:29 | P.DS ---
Providers Date of admission: 10/13/24 11:40 Expected date of discharge: 10/16/24 Attending physician: Yu Marrufo Primary care physician[facility] Course: POSTOPERATIVE DIAGNOSES: 1. Sigmoid diverticulitis with large bowel obstruction 2. History of gastric bypass 3. Obesity excess calories, BMI 30.6 4. Hypertensive heart disease 5. Depressive disorder 6. Hyperlipidemia 7. Generalized anxiety disorder 8. History obstructive sleep apnea COURSE: The patient is a 69-year-old female who presents with change in bowel habits, sigmoid diverticulosis with tortuous colon including large bowel obstruction. Patient presented and underwent colonoscopy for endoscopic tattooing. Features of obstruction were identified. Patient then had robotic sigmoid colectomy, low anterior resection with findings of diverticulitis. Postoperatively, patient had expected transient rectal bleeding due to recent surgery was immediately resolved. Prior to discharge, patient was tolerating diet. Pain was well-controlled. She had brown bowel movements. Close outpatient follow-up described. Procedures: 10/12/24: Colonoscopy 10/13/24 OPERATION: 1. Robotic-assisted daVinci Xi sigmoid colectomy with low anterior resection using 29 mm Ethicon powered stapler 2. Intraoperative colonoscopy used for sigmoidoscopy Anesthesia: GETA, local, regional Estimated Blood Loss (ml): 10 Pathology: 1. Sigmoid colon 2. EEA donuts 3. Proximal colotomy Condition: stable Disposition: floor COMPLICATIONS: None. Operative Findings: 1. Redundant sigmoid colon with 12 inch resection 2. Anastomosis with EEA stapler 29 mm 3. No tension or torsion along the anastomosis 4. Doughnuts thick and both sides and viable 5. Moderately redundant sigmoid colon without tension at anastomosis 6. Negative leak test with viable anastomosis. Patient Condition at Discharge: Good Plan - Discharge Summary Discharge Rx Participant: No New Discharge Prescriptions: New Simethicone [Gas-X] 125 mg PO AC-TID PRN #20 capsule PRN Reason: Pain Acetaminophen Tab [Tylenol Tab] 1,000 mg PO Q6HR PRN #30 tablet PRN Reason: Pain Cyclobenzaprine [Flexeril] 10 mg PO TID #30 tab Continue Omeprazole [PriLOSEC] 20 mg PO DAILY Hydrocortisone Cream [Hydrocortisone 2.5% Cream] 1 applic TOPICAL DAILY PRN PRN Reason: Itching Loratadine [Claritin] 10 mg PO DAILY #0 tab Losartan [Cozaar] 50 mg PO DAILY #30 tab Rosuvastatin Calcium [Crestor] 5 mg PO DAILY FLUoxetine HCL [PROzac] 40 mg PO DAILY Discharge Medication List Omeprazole [PriLOSEC] 20 mg PO DAILY 02/02/24 [History] Rosuvastatin Calcium [Crestor] 5 mg PO DAILY 02/02/24 [History] FLUoxetine HCL [PROzac] 40 mg PO DAILY 08/23/24 [History] Hydrocortisone Cream [Hydrocortisone 2.5% Cream] 1 applic TOPICAL DAILY PRN 08/23/24 [History] Loratadine [Claritin] 10 mg PO DAILY #0 tab 08/25/24 [Rx] Losartan [Cozaar] 50 mg PO DAILY #30 tab 08/25/24 [Rx] Acetaminophen Tab [Tylenol Tab] 1,000 mg PO Q6HR PRN #30 tablet 10/13/24 [Rx] Cyclobenzaprine [Flexeril] 10 mg PO TID #30 tab 10/13/24 [Rx] Simethicone [Gas-X] 125 mg PO AC-TID PRN #20 capsule 10/13/24 [Rx] Follow up Appointment(s)/Referral(s): Yu Marrufo MD [STAFF PHYSICIAN] - 10/17/24 6:45 pm (TELEHEALTH) Patient Instructions/Handouts: Diverticulosis Diet (GEN), Colectomy Diet (DC), Laparoscopic Bowel Resection (GEN) Activity/Diet/Wound Care/Special Instructions: EXPECT BOWEL MOVEMENT WITH BLOOD FOR 1 WEEK, Oct 20 TAKE LAXATIVE FOR CONSTIPATION AFTER 4 DAYS, 10/13/24 NO LONG DRIVES OR AIRPLANE RIDES OVER 60 MINUTES FOR THE NEXT 2 WEEKS, 10/27/24, DUE TO HIGH RISK OF PULMONARY EMBOLISM/DVTs May drive on 10/15/24 Wear abdominal binder for comfort. No lifting over 4 pounds in 4 weeks, November 10December shower. NO BROCCOLI, NUTS, SEEDS UNTIL 11/10/24 No bath tub soaks for two weeks 10/27/24 See diverticulitis, low fiber, colectomy diet Use Tylenol and ibuprofen scheduled for the next 24-48 hours for best pain relief. Use ice along incisions for today to prevent swelling. Discharge Disposition: HOME SELF-CARE
[2024-10-16] MEDS: ACETAMINOPHEN TAB 500 MG TAB PO SCH (12:17)
== END 2024-10-16 13:38 | disposition home or self-care (01) | DRG 330 ==
LOC: ORWHC2ENDO 08:33 → 5NMEDONC 09:50 → ORWHC2ENDO 10-13 11:40
PROVIDERS: ADMIT Surgery Plastic and Reconstructive Surgery; ATTEND Surgery Plastic and Reconstructive Surgery
PROC: 0DJD8ZZ Inspection of Lower Intestinal Tract, Via Natural or Artificial Opening Endoscopic (ICD-10-PCS; 2024-10-12)
PROC: 8E0W4CZ Robotic Assisted Procedure of Trunk Region, Percutaneous Endoscopic Approach (ICD-10-PCS; 2024-10-13)
PROC: 3E0T3BZ Introduction of Anesthetic Agent into Peripheral Nerves and Plexi, Percutaneous Approach (ICD-10-PCS; 2024-10-13)
PROC: 0DTN4ZZ Resection of Sigmoid Colon, Percutaneous Endoscopic Approach (ICD-10-PCS; principal; 2024-10-13 11:00)
DX: K57.30 Diverticulosis of large intestine without perforation or abscess without bleeding (principal); K56.690 Other partial intestinal obstruction; I11.9 Hypertensive heart disease without heart failure; F32.A Depression, unspecified; E66.09 Other obesity due to excess calories; K64.4 Residual hemorrhoidal skin tags; K64.8 Other hemorrhoids; E78.5 Hyperlipidemia, unspecified; F41.1 Generalized anxiety disorder; G47.33 Obstructive sleep apnea (adult) (pediatric); Z68.30 Body mass index [BMI] 30.0-30.9, adult; Z98.84 Bariatric surgery status; Z82.49 Family history of ischemic heart disease and other diseases of the circulatory system; Z80.0 Family history of malignant neoplasm of digestive organs; Z87.891 Personal history of nicotine dependence; Z79.899 Other long term (current) drug therapy
CPT/HCPCS: 45378; 64999; 80053; 85025; 87636; 88307

== ENCOUNTER → 2025-03-14 | Outpatient (CLI) | payer MEDICARE ==
--- NOTE | 2025-03-14 15:27 | P.BASOAP ---
Subjective Progress Note Date: 03/14/25 She is traveling around the world. She reports diarrhea, copius, clear. She was traveling to [place]. She was vomiting. She has prior stricture of the esophagus. She reports RLQ pain but no swelling. Risk of inguinal hernia. Recommend colonoscopy and egd. Due for labs. Assessment/Plan Plan: Date: Initial Weight: 122.924 kg Initial BMI: Current Weight: Current BMI: Type of Surgery: Total Volume in Band: Previous Volume: Volume Removed: Volume Added: Band Size:
[2025-03-14 15:47] VITALS: BP 135/78; PULSE 77; RESP 16; TEMP 98.2; BMI 29.9
== END ==
LOC: BARWHC3 14:38
PROVIDERS: ATTEND Surgery Plastic and Reconstructive Surgery
DX: E66.01 Morbid (severe) obesity due to excess calories (principal); Z88.2 Allergy status to sulfonamides; Z88.5 Allergy status to narcotic agent; Z91.041 Radiographic dye allergy status; Z91.048 Other nonmedicinal substance allergy status; Z68.30 Body mass index [BMI] 30.0-30.9, adult
CPT/HCPCS: 99211